=== PATIENT | female | born 1935 | race African-American/Black ===

== ENCOUNTER 2020-06-11 16:28 | Inpatient (IN) | payer OTHER ==
[2020-06-11] MEDS ORDERED: Ondansetron PF 4 MG/2 ML Vial IVP PRN (21:53)
[2020-06-11] MEDS ORDERED: Acetaminophen 325 MG TAB PO PRN (21:53)
[2020-06-11] MEDS ORDERED: Guaifenesin DM 100-10/5 ML UDCUP PO PRN (21:53)
[2020-06-11] MEDS ORDERED: Calcium Carbonate 500 MG ChewTAB PO PRN (21:53)
[2020-06-11] MEDS ORDERED: Acetaminophen 650 MG Suppository PR PRN (21:53)
[2020-06-11] MEDS ORDERED: Ondansetron ODT 4 MG TAB PO PRN (21:53)
[2020-06-11] MEDS ORDERED: Sodium Chloride 0.9% 1,000 ML IV SCH (22:00)
--- NOTE | 2020-06-11 22:09 | PDOC.HHP ---
Hospitalist HPI - History of Present Illness hypoxia History of Present Illness: history is limited, patient with severe Alzheimer dementia, no family members or personal from intermediate present. Case of an 84y/o female with a pmhx of epilepsy, htn, osteoporosis, dysphagia and alzheimers demetia who was brought to hospital via ems due to hypoxia. apparently patient was recently diagnosed with covid 19 at her intermediate on 06/06/2020 due to cough. they called ems due to deterioration on her symptoms with an 02 sat of 77% on 2L and with tachypnea. patient was brought to hospital and diagnosed with renal failure, hypernatremia and elevated troponin apart from her dx of covid 19 pneumonia with respiratory failure. hospitalist was called for further evaluation and management. Hospitalist ROS - Review of Systems ROS unobtainable: due to mental status Hospitalist History - Past Surgical History Other Surgical History: unable to asses due to mental status - Family History Other Family History: unable to asses due to mental status - Social History Other Social History: unable to asses due to mental status - Exam General Appearance: NAD Eye: PERRL, anicteric sclera ENT: normocephalic atraumatic, no oropharyngeal lesions Neck: supple, symmetric, no JVD Heart: RRR, no murmur, no gallops Respiratory: CTAB, no wheezes, no rales Gastrointestinal: soft, non-tender, non-distended Extremities: no cyanosis, no clubbing, no edema Skin: normal turgor, no lesions, no rashes Neurological: cranial nerve grossly intact Musculoskeletal: normal tone Psychiatric: normal affect, normal behavior Hospitalist H&P A/P - Problem (1) Pneumonia due to COVID-19 virus Code(s): U07.1 - COVID-19; J12.89 - OTHER VIRAL PNEUMONIA Status: Acute (2) Acute respiratory failure Code(s): J96.00 - ACUTE RESPIRATORY FAILURE, UNSP W HYPOXIA OR HYPERCAPNIA Status: Acute (3) Renal failure Status: Acute (4) Hypernatremia Code(s): E87.0 - HYPEROSMOLALITY AND HYPERNATREMIA Status: Acute (5) Elevated d-dimer Code(s): R79.89 - OTHER SPECIFIED ABNORMAL FINDINGS OF BLOOD CHEMISTRY Status: Acute (6) Elevated troponin Code(s): R77.8 - OTHER SPECIFIED ABNORMALITIES OF PLASMA PROTEINS Status: Acute - Plan Plan: Case of an 84y/o female with the stated pmhx who presnet with covid 19 pneumonia, renal failure hypernatremia and elevated dimer covid 19 pneumonia - tested positive on 06/06/2020 - cxr consistent with covid 19 pneumonia - will start decadron ivd - vit c + d + zinc - isolation precaution resp failure - hypoxic - secondary to above - 02 supplementation - wean as tolerated renal failure - cr at 1.8, no previous hx of ckd - will start ivfs - f/u renal function and u/o hypernatremia - likely hypovolemic hypernatremia - will replace volume with ns - changes to hypotonic fluids if needed elevated dimer - concern for PE, unable to get cta due to renal failure - will start prophylactically lovenox - could be secondary to covid 19 - will try to get a V/Q scan epilepsy / htn - continue home meds
[2020-06-11 22:42] VITALS: BMI 28.0
[2020-06-12 00:59] LABS: Troponin I 0.115 ng/mL (< 0.028)
[2020-06-12 08:15] LABS: SARS-CoV-2 MS2 Positive; SARS-CoV-2 N Gene Positive; SARS-CoV-2 S Gene Positive; SARS-CoV-2 by NAA DETECTED (NotDetected); SARS-CoV-2 orf1ab Positive
--- NOTE | 2020-06-12 08:46 | ULT ---
RENAL ULTRASOUND: DATE: 06/11/2020. PROVIDED CLINICAL HISTORY: Renal failure. FINDINGS: The right kidney measures about 9.5 x 4.1 x 3.6 cm and demonstrates no evidence for hydronephrosis or mass. The left kidney measures about 9.4 x 5.5 x 4.2 cm and demonstrates no evidence for hydronephrosis or mass. The urinary bladder appears sonographically unremarkable. IMPRESSION: No evidence for hydronephrosis. POS: LISA
[2020-06-12] MEDS ORDERED: Non-Formulary Item 1 EACH (Levetiracetam [Keppra] 750 MG Tablet) PO SCH (09:00)
--- NOTE | 2020-06-12 09:03 | PDOC.HOSPP ---
- Subjective Encounter Date: 06/12/20 Encounter Time: 09:02 Subjective: no appropriate response - Objective Vital Signs & Weight: Vital Signs (12 hours) Temp Pulse Resp BP Pulse Ox 06/12/20 03:50 98.5 F 72 18 126/71 100 06/11/20 23:37 96.8 F L 71 20 135/57 L 100 06/11/20 21:53 100 Weight Weight 153 lb 6.4 oz - Exam Neck: no JVD Heart: RRR, no murmur Respiratory - other findings: adequate BS, non-focal fine rales Gastrointestinal: soft, normal bowel sounds Extremities: no edema Hosp A/P (1) Pneumonia due to COVID-19 virus Code(s): U07.1 - COVID-19; J12.89 - OTHER VIRAL PNEUMONIA Status: Acute (2) Acute renal failure Status: Acute Qualifiers: Acute renal failure type: unspecified Qualified Code(s): N17.9 - Acute kidney failure, unspecified (3) Dementia Code(s): F03.90 - UNSPECIFIED DEMENTIA WITHOUT BEHAVIORAL DISTURBANCE Status: Acute Qualifiers: Dementia type: unspecified type (4) Acute respiratory failure Code(s): J96.00 - ACUTE RESPIRATORY FAILURE, UNSP W HYPOXIA OR HYPERCAPNIA Status: Acute Qualifiers: Respiratory failure complication: hypoxia Qualified Code(s): J96.01 - Acute respiratory failure with hypoxia (5) Hypernatremia Code(s): E87.0 - HYPEROSMOLALITY AND HYPERNATREMIA Status: Acute - Plan cont iv decadron DC NS, start D5 1/4 NS daily BMP elevated D-Dimer, wait for CRP, ferriten if all elevated comparabl, no OJEDA for PE
[2020-06-12] MEDS: Divalproex Sodium 125 mg Sprinkle Capsule PO SCH (09:26)
[2020-06-12] MEDS: levETIRAcetam 500 MG TAB PO SCH ×2 (09:26→20:48)
[2020-06-12] MEDS: Ascorbic Acid 500 mg Chewable Tablet PO SCH (09:26)
[2020-06-12] MEDS: Cholecalciferol (Vitamin D3) 400 UNITS TAB PO SCH (09:26)
[2020-06-12] MEDS: Zinc Sulfate 220 MG CAP PO SCH (09:27)
[2020-06-12] MEDS: Dexamethasone 4 mg/ml Vial SLOW IVP SCH (09:38)
[2020-06-12] MEDS: Enoxaparin Sodium 80 MG/0.8 ML SYRINGE SC SCH (09:38)
[2020-06-12] MEDS: D5 1/4 NS 1,000 ML IV SCH ×2 (09:38→20:49)
[2020-06-12] MEDS: Artificial Tear Sol 15 ML BOT EA EYE SCH (09:39)
[2020-06-12 11:14] LABS: Hemoglobin 13.4 g/dL (12.0-16.0); Mean Corpuscular HGB CONC 31.9 g/dL (32.0-36.0); Mean Corpuscular Hemoglobin 30.3 pg (27.0-31.0); Mean Corpuscular Volume 94.9 fL (78.0-98.0); Platelet Count 129 thou/uL (130-400); RBC Distribution Width 12.6 % (11.5-14.5); Red Blood Cell (RBC) Count 4.42 mill/uL (4.20-5.40); White Blood Cell (WBC) Count 9.5 thou/uL (4.8-10.8)
[2020-06-12 11:20] LABS: ALT (SGPT) 22 U/L (8-55); AST (SGOT) 43 U/L (5-34); Albumin 3.1 g/dL (3.4-4.8); Alkaline Phosphatase 59 U/L (40-110); Anion Gap 18 mmol/L (10-20); BUN (Urea Nitrogen) 35 mg/dL (9.8-20.1); Bilirubin, Total 0.4 mg/dL (0.2-1.2); Calc. Creatinine Clearance 55 mL/min (70-130); Calcium 8.6 mg/dL (7.8-10.44); Carbon Dioxide 20 mmol/L (23-31); Chloride 119 mmol/L (98-107); Globulin 4.1 g/dL (2.4-3.5); Glucose 88 mg/dL (83-110); Protein, Total 7.2 g/dL (6.0-8.3); Sodium 153 mmol/L (136-145)
[2020-06-12 11:24] LABS: Troponin I 0.117 ng/mL (< 0.028)
[2020-06-12 11:35] LABS: Band 11 % (5-11); Lymphocytes 10 % (21-51); MDiff Complete? YES; Monocytes 5 % (0-10); Neutrophil 74 % (42-75); Platelet Morphology Comment Appears Decreased; RBC Morphology Normal
--- NOTE | 2020-06-12 14:56 | PDOC.BPN ---
- Brief Progress Note Encounter Date: 06/12/20 Encounter Time: 14:50 D-dimer, CRP< ferritell elevated consistent with COVID . no need for PE OJEDA ...
--- NOTE | 2020-06-13 07:47 | PDOC.HOSPP ---
- Subjective Encounter Date: 06/13/20 Encounter Time: 07:44 Subjective: arousable, no distress, dementia - Objective Vital Signs & Weight: Vital Signs (12 hours) Temp Pulse Resp BP Pulse Ox 06/13/20 04:00 97.7 F 59 L 24 H 140/63 100 06/13/20 03:33 98 06/12/20 23:55 22 H 110/56 L 98 06/12/20 20:50 98 06/12/20 19:53 98.2 F 61 22 H 108/53 L 98 Weight Admit Weight 153 lb 6.4 oz Weight 153 lb 6.4 oz I&O: 06/12/20 06/13/20 06/14/20 06:59 06:59 06:59 Intake Total 2587 Output Total 375 Balance 2212 Result Diagrams: 06/12/20 10:43 06/12/20 10:43 Hospitalist ROS - Medication Medications: Active Medications Generic Name Dose Route Start Last Admin Trade Name Freq PRN Reason Stop Dose Admin Acetaminophen 650 mg 06/11/20 21:53 06/12/20 14:17 Acetaminophen 325 Mg Tab PO 650 mg Q4H PRN Administration Headache/Fever/Mild Pain (1-3) Artificial Tears 1 drop 06/12/20 09:00 06/12/20 09:39 Artificial Tear Laura 15 Ml Bot EA EYE 1 drop DAILY LUCIANO Administration Ascorbic Acid 1,000 mg 06/12/20 09:00 06/12/20 09:26 Ascorbic Acid 500 Mg Chewable Tablet PO Not Given DAILY LUCIANO Cholecalciferol 400 units 06/12/20 09:00 06/12/20 09:26 Cholecalciferol (Vitamin D3) 400 Units Tab PO Not Given DAILY LUCIANO Dexamethasone 6 mg 06/12/20 09:00 06/12/20 09:38 Dexamethasone 4 Mg/Ml Vial SLOW IVP 6 mg DAILY LUCIANO Administration Divalproex Sodium 125 mg 06/12/20 09:00 06/12/20 09:26 Divalproex Sodium 125 Mg Sprinkle Capsule PO Not Given DAILY LUCIANO Enoxaparin Sodium 70 mg 06/12/20 09:00 06/12/20 09:38 Enoxaparin Sodium 80 Mg/0.8 Ml Syringe SC 70 mg 0900 LUCIANO Administration Dextrose/Sodium Chloride 1,000 mls @ 100 mls/hr 06/12/20 09:15 06/12/20 20:49 D5 1/4 Ns IV 1,000 mls .Q10H LUCIANO Administration Levetiracetam 750 mg 06/12/20 09:00 06/12/20 20:48 Levetiracetam 500 Mg Tab PO 750 mg BID LUCIANO Administration Sodium Chloride 10 ml 06/12/20 09:00 06/12/20 20:49 Flush - Normal Saline 10 Ml Syringe IVF 10 ml Q12HR LUCIANO Administration Zinc Sulfate 220 mg 06/12/20 09:00 06/12/20 09:27 Zinc Sulfate 220 Mg Cap PO Not Given DAILY LUCIANO - Exam Neck: no JVD Heart: RRR, no murmur Respiratory - other findings: good BS, fine rales Gastrointestinal: soft, normal bowel sounds Extremities: no edema Hosp A/P (1) Pneumonia due to COVID-19 virus Code(s): U07.1 - COVID-19; J12.89 - OTHER VIRAL PNEUMONIA Status: Acute (2) Acute renal failure Status: Acute Qualifiers: Acute renal failure type: unspecified Qualified Code(s): N17.9 - Acute kidney failure, unspecified (3) Dementia Code(s): F03.90 - UNSPECIFIED DEMENTIA WITHOUT BEHAVIORAL DISTURBANCE Status: Acute Qualifiers: Dementia type: unspecified type (4) Acute respiratory failure Code(s): J96.00 - ACUTE RESPIRATORY FAILURE, UNSP W HYPOXIA OR HYPERCAPNIA Status: Acute Qualifiers: Respiratory failure complication: hypoxia Qualified Code(s): J96.01 - Acute respiratory failure with hypoxia (5) Hypernatremia Code(s): E87.0 - HYPEROSMOLALITY AND HYPERNATREMIA Status: Acute - Plan cont iv decadron cont D5 1/4 NS daily BMP when renal fcn, electrolytes normalize, DC plaanning
[2020-06-13 09:25] LABS: Anion Gap 16 mmol/L (10-20); BUN (Urea Nitrogen) 27 mg/dL (9.8-20.1); Calc. Creatinine Clearance 55 mL/min (70-130); Calcium 8.6 mg/dL (7.8-10.44); Carbon Dioxide 23 mmol/L (23-31); Chloride 115 mmol/L (98-107); Glucose 132 mg/dL (83-110); Potassium 3.5 mmol/L (3.5-5.1); Sodium 150 mmol/L (136-145)
[2020-06-13] MEDS: Ascorbic Acid 500 mg Chewable Tablet PO SCH (10:59)
[2020-06-13] MEDS: Divalproex Sodium 125 mg Sprinkle Capsule PO SCH (11:01)
[2020-06-13] MEDS: Zinc Sulfate 220 MG CAP PO SCH (11:01)
[2020-06-13] MEDS: Cholecalciferol (Vitamin D3) 400 UNITS TAB PO SCH (11:01)
[2020-06-13] MEDS: levETIRAcetam 500 MG TAB PO SCH ×2 (11:01→21:58)
[2020-06-13] MEDS: Enoxaparin Sodium 80 MG/0.8 ML SYRINGE SC SCH (11:02)
[2020-06-13] MEDS: Dexamethasone 4 mg/ml Vial SLOW IVP SCH (11:05)
[2020-06-13] MEDS: D5 1/4 NS 1,000 ML IV SCH ×2 (11:08→21:58)
[2020-06-13] MEDS: Artificial Tear Sol 15 ML BOT EA EYE SCH (11:10)
[2020-06-13 11:40] LABS: #Monocytes 0.2 thou/uL (0.11-0.59); #Neutrophils 7.5 thou/uL (1.40-6.50); %Eosinophils 0.5 % (0.0-10.0); %Lymphocytes 11.4 % (21.0-51.0); %Monocytes 2.4 % (0.0-10.0); %Neutrophils 85.7 % (42.0-75.0); Hemoglobin 11.9 g/dL (12.0-16.0); Mean Corpuscular HGB CONC 31.6 g/dL (32.0-36.0); Mean Corpuscular Hemoglobin 30.1 pg (27.0-31.0); Mean Corpuscular Volume 95.3 fL (78.0-98.0); Mean Platelet Volume 8.9 fL (7.4-10.4); Platelet Count 265 thou/uL (130-400); RBC Distribution Width 12.6 % (11.5-14.5); Red Blood Cell (RBC) Count 3.95 mill/uL (4.20-5.40); White Blood Cell (WBC) Count 8.8 thou/uL (4.8-10.8)
--- NOTE | 2020-06-13 15:16 | PDOC.BPN ---
- Brief Progress Note Encounter Date: 06/13/20 Encounter Time: 15:15 hypernatremia improving slowly. cont D5 1/4 ns
--- NOTE | 2020-06-14 08:40 | PDOC.HOSPP ---
- Subjective Encounter Date: 06/14/20 Encounter Time: 08:32 Subjective: still non communicative when aroused - Objective Vital Signs & Weight: Vital Signs (12 hours) Temp Pulse Resp BP Pulse Ox 06/14/20 04:21 99 06/14/20 04:15 97 F L 72 17 158/70 H 100 06/14/20 00:00 60 06/13/20 21:58 98 06/13/20 20:55 97.8 F 68 16 135/75 100 Weight Admit Weight 153 lb 6.4 oz Weight 153 lb 6.4 oz I&O: 06/13/20 06/14/20 06/15/20 06:59 06:59 06:59 Intake Total 2587 2530 Output Total 375 800 Balance 2212 1730 Result Diagrams: 06/13/20 08:54 06/13/20 08:54 Hospitalist ROS - Medication Medications: Active Medications Generic Name Dose Route Start Last Admin Trade Name Freq PRN Reason Stop Dose Admin Acetaminophen 650 mg 06/11/20 21:53 06/12/20 14:17 Acetaminophen 325 Mg Tab PO 650 mg Q4H PRN Administration Headache/Fever/Mild Pain (1-3) Artificial Tears 1 drop 06/12/20 09:00 06/13/20 11:10 Artificial Tear Laura 15 Ml Bot EA EYE 1 drop DAILY LUCIANO Administration Ascorbic Acid 1,000 mg 06/12/20 09:00 06/13/20 10:59 Ascorbic Acid 500 Mg Chewable Tablet PO 1,000 mg DAILY LUCIANO Administration Cholecalciferol 400 units 06/12/20 09:00 06/13/20 11:01 Cholecalciferol (Vitamin D3) 400 Units Tab PO 400 units DAILY LUCIANO Administration Dexamethasone 6 mg 06/12/20 09:00 06/13/20 11:05 Dexamethasone 4 Mg/Ml Vial SLOW IVP 6 mg DAILY LUCIANO Administration Divalproex Sodium 125 mg 06/12/20 09:00 06/13/20 11:01 Divalproex Sodium 125 Mg Sprinkle Capsule PO 125 mg DAILY LUCIANO Administration Enoxaparin Sodium 70 mg 06/12/20 09:00 06/13/20 11:02 Enoxaparin Sodium 80 Mg/0.8 Ml Syringe SC 70 mg 0900 LUCIANO Administration Dextrose/Sodium Chloride 1,000 mls @ 100 mls/hr 06/12/20 09:15 06/13/20 21:58 D5 1/4 Ns IV 1,000 mls .Q10H LUCIANO Administration Levetiracetam 750 mg 06/12/20 09:00 06/13/20 21:58 Levetiracetam 500 Mg Tab PO 750 mg BID LUCIANO Administration Sodium Chloride 10 ml 06/12/20 09:00 06/13/20 21:58 Flush - Normal Saline 10 Ml Syringe IVF 10 ml Q12HR LUCIANO Administration Zinc Sulfate 220 mg 06/12/20 09:00 06/13/20 11:01 Zinc Sulfate 220 Mg Cap PO 220 mg DAILY LUCIANO Administration - Exam Neck: no JVD Heart: RRR Respiratory - other findings: mildly coarse BS, fine rales Gastrointestinal: soft, normal bowel sounds Extremities: no edema Hosp A/P (1) Pneumonia due to COVID-19 virus Code(s): U07.1 - COVID-19; J12.89 - OTHER VIRAL PNEUMONIA Status: Acute (2) Acute renal failure Status: Acute Qualifiers: Acute renal failure type: unspecified Qualified Code(s): N17.9 - Acute kidney failure, unspecified (3) Dementia Code(s): F03.90 - UNSPECIFIED DEMENTIA WITHOUT BEHAVIORAL DISTURBANCE Status: Acute Qualifiers: Dementia type: unspecified type (4) Acute respiratory failure Code(s): J96.00 - ACUTE RESPIRATORY FAILURE, UNSP W HYPOXIA OR HYPERCAPNIA Status: Acute Qualifiers: Respiratory failure complication: hypoxia Qualified Code(s): J96.01 - Acute respiratory failure with hypoxia (5) Hypernatremia Code(s): E87.0 - HYPEROSMOLALITY AND HYPERNATREMIA Status: Acute - Plan COVID-cont iv decadron Hypernatemia-cont D5 1/4 NS, daily BMP when renal fcn, electrolytes normalize, DC planning will return to [place]
[2020-06-14] MEDS: D5 1/4 NS 1,000 ML IV SCH ×2 (09:36→16:29)
[2020-06-14] MEDS: Zinc Sulfate 220 MG CAP PO SCH (09:37)
[2020-06-14] MEDS: levETIRAcetam 500 MG TAB PO SCH ×2 (09:37→20:14)
[2020-06-14] MEDS: Enoxaparin Sodium 80 MG/0.8 ML SYRINGE SC SCH (09:37)
[2020-06-14] MEDS: Cholecalciferol (Vitamin D3) 400 UNITS TAB PO SCH (09:38)
[2020-06-14] MEDS: Dexamethasone 4 mg/ml Vial SLOW IVP SCH (09:38)
[2020-06-14] MEDS: Divalproex Sodium 125 mg Sprinkle Capsule PO SCH (09:38)
[2020-06-14] MEDS: Ascorbic Acid 500 mg Chewable Tablet PO SCH (09:39)
[2020-06-14] MEDS: Artificial Tear Sol 15 ML BOT EA EYE SCH (09:39)
[2020-06-14 16:11] LABS: Anion Gap 13 mmol/L (10-20); BUN (Urea Nitrogen) 15 mg/dL (9.8-20.1); Calc. Creatinine Clearance 67 mL/min (70-130); Calcium 7.9 mg/dL (7.8-10.44); Carbon Dioxide 22 mmol/L (23-31); Chloride 108 mmol/L (98-107); Glucose 133 mg/dL (83-110); Potassium 3.6 mmol/L (3.5-5.1); Sodium 139 mmol/L (136-145)
[2020-06-15] MEDS: D5 1/4 NS 1,000 ML IV SCH ×2 (03:53→14:26)
[2020-06-15] MEDS: Zinc Sulfate 220 MG CAP PO SCH (08:24)
[2020-06-15] MEDS: levETIRAcetam 500 MG TAB PO SCH ×2 (08:24→21:18)
[2020-06-15] MEDS: Divalproex Sodium 125 mg Sprinkle Capsule PO SCH (08:24)
[2020-06-15] MEDS: Ascorbic Acid 500 mg Chewable Tablet PO SCH (08:24)
[2020-06-15] MEDS: Dexamethasone 4 mg/ml Vial SLOW IVP SCH (08:25)
[2020-06-15] MEDS: Artificial Tear Sol 15 ML BOT EA EYE SCH (08:25)
[2020-06-15] MEDS: Cholecalciferol (Vitamin D3) 400 UNITS TAB PO SCH (09:02)
[2020-06-15] MEDS: Enoxaparin Sodium 80 MG/0.8 ML SYRINGE SC SCH (09:02)
[2020-06-15 12:44] LABS: #Lymphocytes 0.8 thou/uL (1.20-3.40); #Monocytes 0.4 thou/uL (0.11-0.59); #Neutrophils 5.9 thou/uL (1.40-6.50); %Basophils 0.2 % (0.0-1.0); %Eosinophils 0.6 % (0.0-10.0); %Lymphocytes 11.1 % (21.0-51.0); %Monocytes 5.5 % (0.0-10.0); %Neutrophils 82.6 % (42.0-75.0); Hemoglobin 12.4 g/dL (12.0-16.0); Mean Corpuscular HGB CONC 32.7 g/dL (32.0-36.0); Mean Corpuscular Hemoglobin 30.4 pg (27.0-31.0); Mean Corpuscular Volume 93.1 fL (78.0-98.0); Mean Platelet Volume 8.5 fL (7.4-10.4); Platelet Count 258 thou/uL (130-400); RBC Distribution Width 12.3 % (11.5-14.5); Red Blood Cell (RBC) Count 4.09 mill/uL (4.20-5.40); White Blood Cell (WBC) Count 7.1 thou/uL (4.8-10.8)
[2020-06-15 13:15] LABS: ALT (SGPT) 42 U/L (8-55); AST (SGOT) 46 U/L (5-34); Albumin 2.7 g/dL (3.4-4.8); Alkaline Phosphatase 58 U/L (40-110); Anion Gap 18 mmol/L (10-20); BUN (Urea Nitrogen) 12 mg/dL (9.8-20.1); Bilirubin, Total 0.4 mg/dL (0.2-1.2); Calc. Creatinine Clearance 67 mL/min (70-130); Calcium 8.2 mg/dL (7.8-10.44); Carbon Dioxide 18 mmol/L (23-31); Chloride 108 mmol/L (98-107); Globulin 3.9 g/dL (2.4-3.5); Glucose 126 mg/dL (83-110); Magnesium 1.9 mg/dL (1.6-2.6); Potassium 3.6 mmol/L (3.5-5.1); Protein, Total 6.6 g/dL (6.0-8.3); Sodium 140 mmol/L (136-145)
[2020-06-15 13:38] LABS: Phosphorus 1.9 mg/dL (2.3-4.7)
[2020-06-15] MEDS ORDERED: Potassium Phosphate 30 MMOL in Sodium Chloride 0.9% 500 ML IVPB SCH (14:30)
[2020-06-15] MEDS: D5 1/2 NS w/20 mEq KCL 1,000 ML IV SCH (14:44)
--- NOTE | 2020-06-15 20:22 | PDOC.HOSPP ---
- Subjective Encounter Date: 06/15/20 Encounter Time: 13:30 non-verbal Subjective: Patient seen and examined for dehydration with COVID 19 pneumonia. No overnight events - Objective Vital Signs & Weight: Vital Signs (12 hours) Temp Pulse Resp BP Pulse Ox 06/15/20 19:27 97.5 F L 58 L 18 175/70 H 93 L 06/15/20 15:20 97.1 F L 64 18 147/68 H 100 06/15/20 11:50 98.3 F 56 L 18 145/61 H 100 06/15/20 09:19 100 Weight Admit Weight 153 lb 6.4 oz Weight 153 lb 6.4 oz I&O: 06/14/20 06/15/20 06/16/20 06:59 06:59 06:59 Intake Total 2530 1540 1750 Output Total 800 400 Balance 1730 1140 1750 Result Diagrams: 06/15/20 12:33 06/15/20 12:33 Additional Labs: Abnormal Lab Results - Last 48 hrs 06/14/20 15:41: Chloride 108 H, Carbon Dioxide 22 L 06/15/20 12:33: Chloride 108 H, Carbon Dioxide 18 L, Phosphorus 1.9 L, AST 46 H, Albumin 2.7 L, Globulin 3.9 H, Albumin/Globulin Ratio 0.7 L 06/15/20 12:33: RBC 4.09 L, Neutrophils % 82.6 H, Lymphocytes % 11.1 L, Lymphocytes # 0.8 L 06/15/20 12:33: C-Reactive Protein 5.14 H 06/15/20 12:33: Ferritin 580.34 H 06/15/20 12:33: D-Dimer 9.34 H Radiology Reviewed by me: Yes (Chest x-rayquit 19 pneumonia) Hospitalist ROS - Review of Systems ROS unobtainable: due to mental status - Medication Medications: Active Medications Generic Name Dose Route Start Last Admin Trade Name Freq PRN Reason Stop Dose Admin Acetaminophen 650 mg 06/11/20 21:53 06/12/20 14:17 Acetaminophen 325 Mg Tab PO 650 mg Q4H PRN Administration Headache/Fever/Mild Pain (1-3) Artificial Tears 1 drop 06/12/20 09:00 06/15/20 08:25 Artificial Tear Laura 15 Ml Bot EA EYE 1 drop DAILY LUCIANO Administration Ascorbic Acid 1,000 mg 06/12/20 09:00 06/15/20 08:24 Ascorbic Acid 500 Mg Chewable Tablet PO 1,000 mg DAILY LUCIANO Administration Cholecalciferol 400 units 06/12/20 09:00 06/15/20 09:02 Cholecalciferol (Vitamin D3) 400 Units Tab PO 400 units DAILY LUCIANO Administration Dexamethasone 6 mg 06/12/20 09:00 06/15/20 08:25 Dexamethasone 4 Mg/Ml Vial SLOW IVP 6 mg DAILY LUCIANO Administration Divalproex Sodium 125 mg 06/12/20 09:00 06/15/20 08:24 Divalproex Sodium 125 Mg Sprinkle Capsule PO 125 mg DAILY LUCIANO Administration Enoxaparin Sodium 70 mg 06/12/20 09:00 06/15/20 09:02 Enoxaparin Sodium 80 Mg/0.8 Ml Syringe SC 70 mg 0900 LUCIANO Administration Potassium Chloride/Dextrose/Sod Cl 1,000 mls @ 75 mls/hr 06/15/20 14:30 06/15/20 14:44 D5 1/2 Ns W/20 Meq Kcl IV 1,000 mls .[id number] LUCIANO Administration Levetiracetam 750 mg 06/12/20 09:00 06/15/20 08:24 Levetiracetam 500 Mg Tab PO 750 mg BID LUCIANO Administration Sodium Chloride 10 ml 06/12/20 09:00 06/15/20 08:25 Flush - Normal Saline 10 Ml Syringe IVF 10 ml Q12HR LUCIANO Administration Zinc Sulfate 220 mg 06/12/20 09:00 06/15/20 08:24 Zinc Sulfate 220 Mg Cap PO 220 mg DAILY LUCIANO Administration - Exam General Appearance: ill appearing Neck: supple, no JVD Heart: RRR, no gallops Respiratory: no wheezes, rales, rhonchi Gastrointestinal: soft, normal bowel sounds, no guarding, no rigidity Extremities: no cyanosis Neurological - other findings: Neuro/psychexam limited due to current mentation Musculoskeletal: generalized weakness Hosp A/P - Plan DVT proph w/SCDs Acute hypoxic respiratory failure due to COVID 19 pneumoniaPOA Dehydration with hypernatremia/AKIPOA Hypophosphatemia Elevated troponin/type II myocardial infarctionPOA Metabolic acidosis CKD stage III Abnormal LFTs Seizure disorder Plan: Replace phosphorus. Change IV fluid to D5 half NS with 20 of potassium. Recheck labs in a.m. Continue other medications as well
[2020-06-16] MEDS: D5 1/2 NS w/20 mEq KCL 1,000 ML IV SCH ×2 (04:37→20:33)
[2020-06-16] MEDS: Ascorbic Acid 500 mg Chewable Tablet PO SCH (09:23)
[2020-06-16] MEDS: Dexamethasone 4 mg/ml Vial SLOW IVP SCH (09:23)
[2020-06-16] MEDS: levETIRAcetam 500 MG TAB PO SCH ×2 (09:24→20:33)
[2020-06-16] MEDS: Divalproex Sodium 125 mg Sprinkle Capsule PO SCH (09:24)
[2020-06-16] MEDS: Zinc Sulfate 220 MG CAP PO SCH (09:24)
[2020-06-16] MEDS: Cholecalciferol (Vitamin D3) 400 UNITS TAB PO SCH (09:24)
[2020-06-16] MEDS: Artificial Tear Sol 15 ML BOT EA EYE SCH (09:24)
[2020-06-16] MEDS: Enoxaparin Sodium 80 MG/0.8 ML SYRINGE SC SCH (09:25)
--- NOTE | 2020-06-16 18:56 | PDOC.HOSPP ---
- Subjective Encounter Date: 06/16/20 Encounter Time: 11:30 non-verbal Subjective: Patient seen and examined for respiratory failure/COVID-19 pneumonia. No new overnight events. - Objective Vital Signs & Weight: Vital Signs (12 hours) Temp Pulse Resp BP Pulse Ox 06/16/20 08:00 98.2 F 61 18 168/78 H 93 L Weight Admit Weight 153 lb 6.4 oz Weight 153 lb 6.4 oz I&O: 06/15/20 06/16/20 06/17/20 06:59 06:59 06:59 Intake Total 1540 1750 Output Total 400 Balance 1140 1750 Result Diagrams: 06/15/20 12:33 06/15/20 12:33 Additional Labs: Abnormal Lab Results - Last 48 hrs 06/15/20 12:33: Chloride 108 H, Carbon Dioxide 18 L, Phosphorus 1.9 L, AST 46 H, Albumin 2.7 L, Globulin 3.9 H, Albumin/Globulin Ratio 0.7 L 06/15/20 12:33: RBC 4.09 L, Neutrophils % 82.6 H, Lymphocytes % 11.1 L, Lymphocytes # 0.8 L 06/15/20 12:33: C-Reactive Protein 5.14 H 06/15/20 12:33: Ferritin 580.34 H 06/15/20 12:33: D-Dimer 9.34 H Hospitalist ROS - Review of Systems ROS unobtainable: due to mental status - Medication Medications: Active Medications Generic Name Dose Route Start Last Admin Trade Name Freq PRN Reason Stop Dose Admin Acetaminophen 650 mg 06/11/20 21:53 06/12/20 14:17 Acetaminophen 325 Mg Tab PO 650 mg Q4H PRN Administration Headache/Fever/Mild Pain (1-3) Artificial Tears 1 drop 06/12/20 09:00 06/16/20 09:24 Artificial Tear Laura 15 Ml Bot EA EYE 1 drop DAILY LUCIANO Administration Ascorbic Acid 1,000 mg 06/12/20 09:00 06/16/20 09:23 Ascorbic Acid 500 Mg Chewable Tablet PO 1,000 mg DAILY LUCIANO Administration Cholecalciferol 400 units 06/12/20 09:00 06/16/20 09:24 Cholecalciferol (Vitamin D3) 400 Units Tab PO 400 units DAILY LUCIANO Administration Dexamethasone 6 mg 06/12/20 09:00 06/16/20 09:23 Dexamethasone 4 Mg/Ml Vial SLOW IVP 6 mg DAILY LUCIANO Administration Divalproex Sodium 125 mg 06/12/20 09:00 06/16/20 09:24 Divalproex Sodium 125 Mg Sprinkle Capsule PO 125 mg DAILY LUCIANO Administration Enoxaparin Sodium 70 mg 06/12/20 09:00 06/16/20 09:25 Enoxaparin Sodium 80 Mg/0.8 Ml Syringe SC 70 mg 0900 LUCIANO Administration Potassium Chloride/Dextrose/Sod Cl 1,000 mls @ 75 mls/hr 06/15/20 14:30 06/16/20 04:37 D5 1/2 Ns W/20 Meq Kcl IV Not Given .[id number] LUCIANO Levetiracetam 750 mg 06/12/20 09:00 06/16/20 09:24 Levetiracetam 500 Mg Tab PO 750 mg BID LUCIANO Administration Sodium Chloride 10 ml 06/12/20 09:00 06/16/20 09:25 Flush - Normal Saline 10 Ml Syringe IVF 10 ml Q12HR LUCIANO Administration Zinc Sulfate 220 mg 06/12/20 09:00 06/16/20 09:24 Zinc Sulfate 220 Mg Cap PO 220 mg DAILY LUCIANO Administration - Exam General Appearance: ill appearing Heart: RRR, no gallops Respiratory: no wheezes, rales, rhonchi Gastrointestinal: non-tender, no guarding, no rigidity Extremities: no cyanosis Hosp A/P - Plan DVT proph w/SCDs Acute hypoxic respiratory failure due to COVID 19 pneumonia Dehydration with hypernatremia/PRAVEENA Hypophosphatemia Elevated troponin/type II myocardial infarction Metabolic acidosis CKD stage III Abnormal LFTs Seizure disorder Plan: Continue IV hydration. Continue dexamethasone with O2 supplementation and bronchodilators. Will consult palliative care for goals of care. Continue modified diet. Recheck inflammatory markers in a.m. Continue other medications as above
[2020-06-16 19:59] LABS: #Lymphocytes 0.7 thou/uL (1.20-3.40); #Monocytes 0.3 thou/uL (0.11-0.59); %Basophils 0.4 % (0.0-1.0); %Eosinophils 0.2 % (0.0-10.0); %Lymphocytes 10.8 % (21.0-51.0); %Monocytes 5.5 % (0.0-10.0); %Neutrophils 83.1 % (42.0-75.0); Hemoglobin 12.5 g/dL (12.0-16.0); Mean Corpuscular HGB CONC 31.8 g/dL (32.0-36.0); Mean Corpuscular Hemoglobin 29.4 pg (27.0-31.0); Mean Corpuscular Volume 92.6 fL (78.0-98.0); Mean Platelet Volume 8.3 fL (7.4-10.4); Platelet Count 336 thou/uL (130-400); RBC Distribution Width 12.4 % (11.5-14.5); Red Blood Cell (RBC) Count 4.26 mill/uL (4.20-5.40)
[2020-06-16 20:25] LABS: ALT (SGPT) 36 U/L (8-55); AST (SGOT) 35 U/L (5-34); Albumin 2.8 g/dL (3.4-4.8); Alkaline Phosphatase 63 U/L (40-110); Anion Gap 15 mmol/L (10-20); BUN (Urea Nitrogen) 11 mg/dL (9.8-20.1); Bilirubin, Total 0.5 mg/dL (0.2-1.2); Calc. Creatinine Clearance 70 mL/min (70-130); Calcium 8.1 mg/dL (7.8-10.44); Carbon Dioxide 21 mmol/L (23-31); Chloride 106 mmol/L (98-107); Globulin 3.9 g/dL (2.4-3.5); Glucose 125 mg/dL (83-110); Magnesium 1.8 mg/dL (1.6-2.6); Phosphorus 2.9 mg/dL (2.3-4.7); Potassium 4.2 mmol/L (3.5-5.1); Protein, Total 6.7 g/dL (6.0-8.3); Sodium 138 mmol/L (136-145)
[2020-06-17] MEDS: D5 1/2 NS w/20 mEq KCL 1,000 ML IV SCH ×2 (02:43→18:27)
[2020-06-17 07:44] LABS: ALT (SGPT) 34 U/L (8-55); AST (SGOT) 35 U/L (5-34); Albumin 2.7 g/dL (3.4-4.8); Alkaline Phosphatase 63 U/L (40-110); Anion Gap 15 mmol/L (10-20); BUN (Urea Nitrogen) 10 mg/dL (9.8-20.1); Bilirubin, Total 0.5 mg/dL (0.2-1.2); Calc. Creatinine Clearance 69 mL/min (70-130); Calcium 7.9 mg/dL (7.8-10.44); Carbon Dioxide 20 mmol/L (23-31); Chloride 110 mmol/L (98-107); Globulin 3.4 g/dL (2.4-3.5); Glucose 94 mg/dL (83-110); Magnesium 1.8 mg/dL (1.6-2.6); Phosphorus 2.3 mg/dL (2.3-4.7); Potassium 4.2 mmol/L (3.5-5.1); Protein, Total 6.1 g/dL (6.0-8.3); Sodium 141 mmol/L (136-145)
[2020-06-17] MEDS ORDERED: Magnesium 2 GM/50 ML 2 GM in Premix Bag 1 BAG IVPB SCH (08:45)
[2020-06-17] MEDS: Zinc Sulfate 220 MG CAP PO SCH (09:37)
[2020-06-17] MEDS: Divalproex Sodium 125 mg Sprinkle Capsule PO SCH (09:38)
[2020-06-17] MEDS: Dexamethasone 4 mg/ml Vial SLOW IVP SCH (09:38)
[2020-06-17] MEDS: Ascorbic Acid 500 mg Chewable Tablet PO SCH (09:38)
[2020-06-17] MEDS: levETIRAcetam 500 MG TAB PO SCH ×2 (09:38→21:00)
[2020-06-17] MEDS: Artificial Tear Sol 15 ML BOT EA EYE SCH (09:39)
[2020-06-17] MEDS: Cholecalciferol (Vitamin D3) 400 UNITS TAB PO SCH (09:40)
[2020-06-17] MEDS: Enoxaparin Sodium 80 MG/0.8 ML SYRINGE SC SCH (09:40)
--- NOTE | 2020-06-17 12:19 | RAD ---
PORTABLE CHEST: Date: 06/17/2020 HISTORY: COVID pneumonia. COMPARISON: 06/11/2020. FINDINGS: There is more confluent infiltrate now seen in the peripheral right mid lung. Probable hazy ground-gl ass type infiltrate in the right lower lung and possibly left lower lung. Evidence of small effusions . Borderline cardiomegaly. Vascular markings within normal range. IMPRESSION: Increasing consolidation in the right peripheral mid lung infiltrate. POS: AGW
--- NOTE | 2020-06-17 23:29 | PDOC.HOSPP ---
- Subjective Encounter Date: 06/17/20 Encounter Time: 15:00 non-verbal Subjective: Patient seen and examined for encephalopathy. No significant changes from yesterday. Poor appetite per RN. - Objective Vital Signs & Weight: Vital Signs (12 hours) Temp Pulse Resp BP Pulse Ox 06/17/20 20:00 97.6 F 61 18 159/63 H 100 Weight Admit Weight 153 lb 6.4 oz Weight 153 lb 6.4 oz I&O: 06/16/20 06/17/20 06/18/20 06:59 06:59 06:59 Intake Total 1750 600 Output Total 1000 Balance 1750 -400 Result Diagrams: 06/16/20 19:43 06/17/20 07:06 Hospitalist ROS - Review of Systems ROS unobtainable: due to mental status - Medication Medications: Active Medications Generic Name Dose Route Start Last Admin Trade Name Freq PRN Reason Stop Dose Admin Acetaminophen 650 mg 06/11/20 21:53 06/12/20 14:17 Acetaminophen 325 Mg Tab PO 650 mg Q4H PRN Administration Headache/Fever/Mild Pain (1-3) Artificial Tears 1 drop 06/12/20 09:00 06/17/20 09:39 Artificial Tear Laura 15 Ml Bot EA EYE 1 drop DAILY LUCIANO Administration Ascorbic Acid 1,000 mg 06/12/20 09:00 06/17/20 09:38 Ascorbic Acid 500 Mg Chewable Tablet PO 1,000 mg DAILY LUCIANO Administration Cholecalciferol 400 units 06/12/20 09:00 06/17/20 09:40 Cholecalciferol (Vitamin D3) 400 Units Tab PO 400 units DAILY LUCIANO Administration Dexamethasone 6 mg 06/12/20 09:00 06/17/20 09:38 Dexamethasone 4 Mg/Ml Vial SLOW IVP 6 mg DAILY LUCIANO Administration Divalproex Sodium 125 mg 06/12/20 09:00 06/17/20 09:38 Divalproex Sodium 125 Mg Sprinkle Capsule PO 125 mg DAILY LUCIANO Administration Enoxaparin Sodium 70 mg 06/12/20 09:00 06/17/20 09:40 Enoxaparin Sodium 80 Mg/0.8 Ml Syringe SC 70 mg 0900 LUCIANO Administration Potassium Chloride/Dextrose/Sod Cl 1,000 mls @ 75 mls/hr 06/15/20 14:30 06/17/20 18:27 D5 1/2 Ns W/20 Meq Kcl IV 1,000 mls .[id number] LUCIANO Administration Levetiracetam 750 mg 06/12/20 09:00 06/17/20 21:00 Levetiracetam 500 Mg Tab PO 750 mg BID LUCIANO Administration Sodium Chloride 10 ml 06/12/20 09:00 06/17/20 21:01 Flush - Normal Saline 10 Ml Syringe IVF 10 ml Q12HR LUCIANO Administration Zinc Sulfate 220 mg 06/12/20 09:00 06/17/20 09:37 Zinc Sulfate 220 Mg Cap PO 220 mg DAILY LUCIANO Administration - Exam General Appearance: ill appearing Neck: supple, no JVD Heart: RRR, no gallops Respiratory: no wheezes, rales, rhonchi Gastrointestinal: soft, non-distended Extremities: no cyanosis Hosp A/P - Plan DVT proph w/SCDs Acute hypoxic respiratory failure due to COVID 19 pneumonia Dehydration with hypernatremia/PRAVEENA Hypophosphatemia Elevated troponin/type II myocardial infarction Metabolic acidosis CKD stage III Abnormal LFTs Seizure disorder Hypomagnesemia Plan: Attempted to call the family with no answer. Continue gentle hydration due to poor appetite. Replace magnesium. Reduce steroid since patient is on room air. Recheck labs in a.m. Continue other medications as above
[2020-06-18] MEDS: Enoxaparin Sodium 30 MG/0.3 ML SYRINGE SC SCH ×2 (09:18→20:25)
[2020-06-18] MEDS: D5 1/2 NS w/20 mEq KCL 1,000 ML IV SCH ×2 (09:18→20:27)
[2020-06-18] MEDS: levETIRAcetam 500 MG TAB PO SCH ×2 (09:19→20:24)
[2020-06-18] MEDS: Divalproex Sodium 125 mg Sprinkle Capsule PO SCH (09:19)
[2020-06-18] MEDS: Ascorbic Acid 500 mg Chewable Tablet PO SCH (09:19)
[2020-06-18] MEDS: Dexamethasone 4 mg/ml Vial SLOW IVP SCH (09:19)
[2020-06-18] MEDS: Cholecalciferol (Vitamin D3) 400 UNITS TAB PO SCH (09:24)
[2020-06-18 10:04] LABS: #Eosinphils 0.1 thou/uL (0.0-0.7); #Lymphocytes 1.8 thou/uL (1.20-3.40); #Monocytes 0.6 thou/uL (0.11-0.59); #Neutrophils 4.2 thou/uL (1.40-6.50); %Basophils 0.7 % (0.0-1.0); %Eosinophils 1.1 % (0.0-10.0); %Lymphocytes 26.9 % (21.0-51.0); %Monocytes 9.4 % (0.0-10.0); %Neutrophils 61.9 % (42.0-75.0); Hemoglobin 12.8 g/dL (12.0-16.0); Mean Corpuscular HGB CONC 32.5 g/dL (32.0-36.0); Mean Corpuscular Hemoglobin 30.6 pg (27.0-31.0); Mean Corpuscular Volume 94.3 fL (78.0-98.0); Platelet Count 238 thou/uL (130-400); RBC Distribution Width 12.4 % (11.5-14.5); Red Blood Cell (RBC) Count 4.19 mill/uL (4.20-5.40); White Blood Cell (WBC) Count 6.8 thou/uL (4.8-10.8)
[2020-06-18 10:14] LABS: ALT (SGPT) 32 U/L (8-55); AST (SGOT) 34 U/L (5-34); Albumin 2.5 g/dL (3.4-4.8); Alkaline Phosphatase 60 U/L (40-110); Anion Gap 17 mmol/L (10-20); BUN (Urea Nitrogen) 8 mg/dL (9.8-20.1); Bilirubin, Total 0.5 mg/dL (0.2-1.2); Calc. Creatinine Clearance 69 mL/min (70-130); Calcium 8.3 mg/dL (7.8-10.44); Carbon Dioxide 18 mmol/L (23-31); Chloride 110 mmol/L (98-107); Globulin 3.9 g/dL (2.4-3.5); Glucose 84 mg/dL (83-110); Potassium 4.3 mmol/L (3.5-5.1); Protein, Total 6.4 g/dL (6.0-8.3); Sodium 141 mmol/L (136-145)
[2020-06-18] MEDS: Artificial Tear Sol 15 ML BOT EA EYE SCH (10:55)
[2020-06-18] MEDS: Zinc Sulfate 220 MG CAP PO SCH (10:55)
--- NOTE | 2020-06-18 23:36 | PDOC.HOSPP ---
- Subjective Encounter Date: 06/18/20 Encounter Time: 14:30 non-verbal Subjective: Patient seen and examined for encephalopathy. No significant change in mentation. Very poor appetite. - Objective Vital Signs & Weight: Vital Signs (12 hours) Temp Pulse Resp BP BP Pulse Ox 06/18/20 20:51 98.3 F 97 18 142/86 H 95 06/18/20 15:56 97.9 F 61 18 167/82 H 100 Weight Admit Weight 153 lb 6.4 oz Weight 153 lb 6.4 oz I&O: 06/17/20 06/18/20 06/19/20 06:59 06:59 06:59 Intake Total 600 600 Output Total 1000 650 650 Balance -400 -50 -650 Result Diagrams: 06/18/20 09:35 06/18/20 09:00 Hospitalist ROS - Review of Systems ROS unobtainable: due to mental status - Medication Medications: Active Medications Generic Name Dose Route Start Last Admin Trade Name Freq PRN Reason Stop Dose Admin Acetaminophen 650 mg 06/11/20 21:53 06/12/20 14:17 Acetaminophen 325 Mg Tab PO 650 mg Q4H PRN Administration Headache/Fever/Mild Pain (1-3) Artificial Tears 1 drop 06/12/20 09:00 06/18/20 10:55 Artificial Tear Laura 15 Ml Bot EA EYE 1 drop DAILY LUCIANO Administration Ascorbic Acid 1,000 mg 06/12/20 09:00 06/18/20 09:19 Ascorbic Acid 500 Mg Chewable Tablet PO 1,000 mg DAILY LUCIANO Administration Cholecalciferol 400 units 06/12/20 09:00 06/18/20 09:24 Cholecalciferol (Vitamin D3) 400 Units Tab PO 400 units DAILY LUCIANO Administration Dexamethasone 4 mg 06/18/20 09:00 06/18/20 09:19 Dexamethasone 4 Mg/Ml Vial SLOW IVP 4 mg DAILY LUCIANO Administration Divalproex Sodium 125 mg 06/12/20 09:00 06/18/20 09:19 Divalproex Sodium 125 Mg Sprinkle Capsule PO 125 mg DAILY LUCIANO Administration Enoxaparin Sodium 30 mg 06/18/20 09:00 06/18/20 20:25 Enoxaparin Sodium 30 Mg/0.3 Ml Syringe SC 30 mg 0900,2100 LUCIANO Administration Potassium Chloride/Dextrose/Sod Cl 1,000 mls @ 75 mls/hr 06/15/20 14:30 06/18/20 20:27 D5 1/2 Ns W/20 Meq Kcl IV 1,000 mls .[id number] LUCIANO Administration Levetiracetam 750 mg 06/12/20 09:00 06/18/20 20:24 Levetiracetam 500 Mg Tab PO 750 mg BID LUCIANO Administration Sodium Chloride 10 ml 06/12/20 09:00 06/18/20 20:28 Flush - Normal Saline 10 Ml Syringe IVF 10 ml Q12HR LUCIANO Administration Zinc Sulfate 220 mg 06/12/20 09:00 06/18/20 10:55 Zinc Sulfate 220 Mg Cap PO Not Given DAILY LUCIANO - Exam General Appearance: ill appearing Neck: supple, no JVD Heart: RRR, no gallops Respiratory: no wheezes, rhonchi Gastrointestinal: soft, non-tender, non-distended Extremities: no cyanosis, no clubbing Neurological - other findings: Neuro/psychno significant change Hosp A/P - Plan DVT proph w/SCDs Acute hypoxic respiratory failure due to COVID 19 pneumonia Dehydration with hypernatremia/PRAVEENA Hypophosphatemia Elevated troponin/type II myocardial infarction Metabolic acidosis CKD stage III Abnormal LFTs Seizure disorder Hypomagnesemia Plan: Continue supportive care. Patient has very poor appetite. Attempted to call the family with no answer. Continue gentle hydration. Continue low-dose steroid. Continue antiepileptic drugs. Continue other medications as above
[2020-06-19] MEDS: Ascorbic Acid 500 mg Chewable Tablet PO SCH (10:14)
[2020-06-19] MEDS: Divalproex Sodium 125 mg Sprinkle Capsule PO SCH (10:15)
[2020-06-19] MEDS: Cholecalciferol (Vitamin D3) 400 UNITS TAB PO SCH (10:15)
[2020-06-19] MEDS: Dexamethasone 4 mg/ml Vial SLOW IVP SCH (10:15)
[2020-06-19] MEDS: levETIRAcetam 500 MG TAB PO SCH ×2 (10:15→19:53)
[2020-06-19] MEDS: Zinc Sulfate 220 MG CAP PO SCH (10:16)
[2020-06-19] MEDS: Enoxaparin Sodium 30 MG/0.3 ML SYRINGE SC SCH ×2 (10:16→19:53)
[2020-06-19] MEDS: Artificial Tear Sol 15 ML BOT EA EYE SCH (10:16)
[2020-06-19] MEDS ORDERED: D5W-AA 4.25% with LYTES 1,000 ML BAG IV SCH (12:00)
--- NOTE | 2020-06-19 20:43 | PDOC.HOSPP ---
- Subjective Encounter Date: 06/19/20 Encounter Time: 13:30 Subjective: Patient seen and examined for respiratory failure due to COVID-19 pneumonia. Poor appetite. Family was updated earlier today. No overnight events. - Objective Vital Signs & Weight: Vital Signs (12 hours) Temp Pulse Resp Pulse Ox 06/19/20 20:00 97.6 F 61 18 98 Weight Admit Weight 153 lb 6.4 oz Weight 153 lb 6.4 oz I&O: 06/18/20 06/19/20 06/20/20 06:59 06:59 06:59 Intake Total 600 Output Total 650 650 Balance -50 -650 Result Diagrams: 06/18/20 09:35 06/18/20 09:00 Additional Labs: Abnormal Lab Results - Last 48 hrs 06/18/20 09:00: Chloride 110 H, Carbon Dioxide 18 L, BUN 8 L, Albumin 2.5 L, Globulin 3.9 H, Albumin/Globulin Ratio 0.6 L 06/18/20 09:35: RBC 4.19 L, Monocytes # 0.6 H Hospitalist ROS - Review of Systems ROS unobtainable: due to mental status - Medication Medications: Active Medications Generic Name Dose Route Start Last Admin Trade Name Freq PRN Reason Stop Dose Admin Acetaminophen 650 mg 06/11/20 21:53 06/12/20 14:17 Acetaminophen 325 Mg Tab PO 650 mg Q4H PRN Administration Headache/Fever/Mild Pain (1-3) Amino Acids/Electrolytes/Dextrose 1,000 ml 06/19/20 12:00 06/19/20 12:57 D5w-Aa 4.25% With Lytes 1,000 Ml Bag IV 06/20/20 12:01 1,000 ml INF LUCIANO Administration Artificial Tears 1 drop 06/12/20 09:00 06/19/20 10:16 Artificial Tear Laura 15 Ml Bot EA EYE 1 drop DAILY LUCIANO Administration Ascorbic Acid 1,000 mg 06/12/20 09:00 06/19/20 10:14 Ascorbic Acid 500 Mg Chewable Tablet PO 1,000 mg DAILY LUCIANO Administration Cholecalciferol 400 units 06/12/20 09:00 06/19/20 10:15 Cholecalciferol (Vitamin D3) 400 Units Tab PO 400 units DAILY LUCIANO Administration Dexamethasone 4 mg 06/18/20 09:00 06/19/20 10:15 Dexamethasone 4 Mg/Ml Vial SLOW IVP 4 mg DAILY LUCIANO Administration Divalproex Sodium 125 mg 06/12/20 09:00 06/19/20 10:15 Divalproex Sodium 125 Mg Sprinkle Capsule PO 125 mg DAILY LUCIANO Administration Levetiracetam 750 mg 06/12/20 09:00 06/19/20 19:53 Levetiracetam 500 Mg Tab PO 750 mg BID LUCIANO Administration Sodium Chloride 10 ml 06/12/20 09:00 06/19/20 19:54 Flush - Normal Saline 10 Ml Syringe IVF Not Given Q12HR LUCIANO Zinc Sulfate 220 mg 06/12/20 09:00 06/19/20 10:16 Zinc Sulfate 220 Mg Cap PO Not Given DAILY LUCIANO - Exam General Appearance: ill appearing Neck: supple, no JVD Heart: RRR, no gallops Respiratory: no wheezes, no ronchi Gastrointestinal: soft, normal bowel sounds, no guarding, no rigidity Extremities: no cyanosis Neurological: no new deficit Hosp A/P - Plan DVT proph w/lovenox, DVT proph w/SCDs Acute hypoxic respiratory failure due to COVID 19 pneumonia Dehydration with hypernatremia/PRAVEENA Hypophosphatemia Elevated troponin/type II myocardial infarction Metabolic acidosis CKD stage III Abnormal LFTs Seizure disorder Hypomagnesemia Plan: Family was updated earlier today. Contact number is Raquel at [phone]. Will change IV fluid to PPN due to to malnutrition. Continue Decadron. Continue Depakote, Keppra with other medications as above. Check inflammatory markers in a.m. Continue isolation
[2020-06-20 06:04] LABS: #Eosinphils 0.1 thou/uL (0.0-0.7); #Lymphocytes 1.9 thou/uL (1.20-3.40); #Monocytes 0.6 thou/uL (0.11-0.59); #Neutrophils 4.6 thou/uL (1.40-6.50); %Basophils 0.3 % (0.0-1.0); %Eosinophils 0.8 % (0.0-10.0); %Lymphocytes 25.9 % (21.0-51.0); %Monocytes 8.4 % (0.0-10.0); %Neutrophils 64.6 % (42.0-75.0); Hemoglobin 12.7 g/dL (12.0-16.0); Mean Corpuscular HGB CONC 32.4 g/dL (32.0-36.0); Mean Corpuscular Hemoglobin 30.1 pg (27.0-31.0); Mean Platelet Volume 7.8 fL (7.4-10.4); Platelet Count 377 thou/uL (130-400); RBC Distribution Width 12.3 % (11.5-14.5); Red Blood Cell (RBC) Count 4.22 mill/uL (4.20-5.40); White Blood Cell (WBC) Count 7.2 thou/uL (4.8-10.8)
[2020-06-20 06:24] LABS: ALT (SGPT) 33 U/L (8-55); AST (SGOT) 30 U/L (5-34); Albumin 3.1 g/dL (3.4-4.8); Alkaline Phosphatase 69 U/L (40-110); Anion Gap 16 mmol/L (10-20); BUN (Urea Nitrogen) 11 mg/dL (9.8-20.1); Bilirubin, Total 0.7 mg/dL (0.2-1.2); CRP (Inflammatory) 3.61 mg/dL (= or < 0.5); Calc. Creatinine Clearance 62 mL/min (70-130); Calcium 8.8 mg/dL (7.8-10.44); Carbon Dioxide 24 mmol/L (23-31); Chloride 107 mmol/L (98-107); Glucose 78 mg/dL (83-110); Magnesium 1.8 mg/dL (1.6-2.6); Phosphorus 2.8 mg/dL (2.3-4.7); Protein, Total 7.1 g/dL (6.0-8.3); Sodium 143 mmol/L (136-145)
[2020-06-20] MEDS: Ascorbic Acid 500 mg Chewable Tablet PO SCH (09:00)
[2020-06-20] MEDS: Zinc Sulfate 220 MG CAP PO SCH (09:00)
[2020-06-20] MEDS: Enoxaparin Sodium 30 MG/0.3 ML SYRINGE SC SCH (09:00)
[2020-06-20] MEDS: levETIRAcetam 500 MG TAB PO SCH ×2 (09:00→20:40)
[2020-06-20] MEDS: Dexamethasone 4 mg/ml Vial SLOW IVP SCH (09:00)
[2020-06-20] MEDS: Divalproex Sodium 125 mg Sprinkle Capsule PO SCH (09:06)
[2020-06-20] MEDS: Artificial Tear Sol 15 ML BOT EA EYE SCH (09:06)
[2020-06-20] MEDS: Cholecalciferol (Vitamin D3) 400 UNITS TAB PO SCH (09:06)
--- NOTE | 2020-06-20 13:52 | RAD ---
PORTABLE CHEST: HISTORY: Shortness of breath, COVID positive. FINDINGS: Heart size is enlarged. Some bilateral infiltrative lung changes fairly similar to the prior exam. Some of the changes in the right mid lung field appear improved. IMPRESSION: Bilateral infiltrates. Minimal improvement to the right mid lung changes. POS: [facility]
[2020-06-20] MEDS ORDERED: D5W-AA 4.25% with LYTES 1,000 ML BAG IV SCH (14:45)
--- NOTE | 2020-06-20 20:01 | PDOC.HOSPP ---
- Subjective Encounter Date: 06/20/20 Encounter Time: 10:00 non-verbal Subjective: Patient seen and examined for COVID-19 pneumonia with respiratory failure. Very poor appetite. No new events reported. - Objective Vital Signs & Weight: Vital Signs (12 hours) Pulse Ox 06/20/20 08:00 98 Weight Admit Weight 153 lb 6.4 oz Weight 153 lb 6.4 oz I&O: 06/19/20 06/20/20 06/21/20 06:59 06:59 06:59 Output Total 650 Balance -650 Result Diagrams: 06/20/20 05:49 06/20/20 05:49 Additional Labs: Abnormal Lab Results - Last 48 hrs 06/20/20 05:49: C-Reactive Protein 3.61 H, Albumin 3.1 L, Globulin 4.0 H, Albumin/Globulin Ratio 0.8 L 06/20/20 05:49: Ferritin 542.85 H 06/20/20 05:49: Monocytes # 0.6 H 06/20/20 05:49: D-Dimer 7.19 H Radiology Reviewed by me: Yes (Chest x-raybilateral infiltrate) Hospitalist ROS - Review of Systems ROS unobtainable: due to mental status - Medication Medications: Active Medications Generic Name Dose Route Start Last Admin Trade Name Freq PRN Reason Stop Dose Admin Acetaminophen 650 mg 06/11/20 21:53 06/12/20 14:17 Acetaminophen 325 Mg Tab PO 650 mg Q4H PRN Administration Headache/Fever/Mild Pain (1-3) Amino Acids/Electrolytes/Dextrose 1,000 ml 06/20/20 14:45 06/20/20 16:14 D5w-Aa 4.25% With Lytes 1,000 Ml Bag IV 06/21/20 02:45 1,000 ml INF LUCIANO Administration Artificial Tears 1 drop 06/12/20 09:00 06/20/20 09:06 Artificial Tear Laura 15 Ml Bot EA EYE 1 drop DAILY LUCIANO Administration Ascorbic Acid 1,000 mg 06/12/20 09:00 06/20/20 09:00 Ascorbic Acid 500 Mg Chewable Tablet PO 1,000 mg DAILY LUCIANO Administration Cholecalciferol 400 units 06/12/20 09:00 06/20/20 09:06 Cholecalciferol (Vitamin D3) 400 Units Tab PO 400 units DAILY LUCIANO Administration Dexamethasone 4 mg 06/18/20 09:00 06/20/20 09:00 Dexamethasone 4 Mg/Ml Vial SLOW IVP 4 mg DAILY LUCIANO Administration Divalproex Sodium 125 mg 06/12/20 09:00 06/20/20 09:06 Divalproex Sodium 125 Mg Sprinkle Capsule PO 125 mg DAILY LUCIANO Administration Enoxaparin Sodium 30 mg 06/20/20 09:00 06/20/20 09:00 Enoxaparin Sodium 30 Mg/0.3 Ml Syringe SC 30 mg 09 LUCIANO Administration Levetiracetam 750 mg 06/12/20 09:00 06/20/20 09:00 Levetiracetam 500 Mg Tab PO 750 mg BID LUCIANO Administration Sodium Chloride 10 ml 06/12/20 09:00 06/20/20 09:06 Flush - Normal Saline 10 Ml Syringe IVF Not Given Q12HR LUCIANO Zinc Sulfate 220 mg 06/12/20 09:00 06/20/20 09:00 Zinc Sulfate 220 Mg Cap PO 220 mg DAILY LUCIANO Administration - Exam General Appearance: NAD Heart: RRR, no gallops Respiratory: rales, rhonchi Gastrointestinal: soft, non-distended, no guarding, no rigidity Extremities: no cyanosis, no clubbing Musculoskeletal: generalized weakness Psychiatric - other findings: Neuro/psychexam limited due to current mentation Hosp A/P - Plan DVT proph w/SCDs Acute hypoxic respiratory failure due to COVID 19 pneumonia Dehydration with hypernatremia/PRAVEENA Hypophosphatemia Elevated troponin/type II myocardial infarction Metabolic acidosis CKD stage III Abnormal LFTs Seizure disorder Hypomagnesemia Plan: Case discussed with the family over the phone. Symptom onset was 06/06. Patient has very poor appetite. Family requesting either NG or PEG tube. Will obtain chest x-ray. Will discuss with infectious disease if isolation can be discontinued since patient is more than 2 weeks from the symptom onset. Continue supportive care. Continue PPN. Inflammatory markers slowly improving. Continue dexamethasone, Keppra and other medications as above. Continue Lovenox for DVT prophylaxis. Will check COVID-19 antibodies. A.m. labs 06/19 Family was updated earlier today. Contact number is Raquel at [phone]. Will change IV fluid to PPN due to to malnutrition. Continue Decadron. Continue Depakote, Keppra with other medications as above. Check inflammatory markers in a.m. Continue isolation
[2020-06-21 06:27] LABS: #Eosinphils 0.1 thou/uL (0.0-0.7); #Lymphocytes 1.4 thou/uL (1.20-3.40); #Monocytes 0.6 thou/uL (0.11-0.59); #Neutrophils 4.3 thou/uL (1.40-6.50); %Basophils 0.1 % (0.0-1.0); %Eosinophils 0.8 % (0.0-10.0); %Lymphocytes 21.6 % (21.0-51.0); %Monocytes 9.9 % (0.0-10.0); %Neutrophils 67.6 % (42.0-75.0); Hemoglobin 12.1 g/dL (12.0-16.0); Mean Corpuscular HGB CONC 33.9 g/dL (32.0-36.0); Mean Corpuscular Hemoglobin 31.1 pg (27.0-31.0); Mean Corpuscular Volume 91.8 fL (78.0-98.0); Mean Platelet Volume 7.6 fL (7.4-10.4); Platelet Count 374 thou/uL (130-400); RBC Distribution Width 12.4 % (11.5-14.5); Red Blood Cell (RBC) Count 3.88 mill/uL (4.20-5.40); White Blood Cell (WBC) Count 6.3 thou/uL (4.8-10.8)
[2020-06-21 06:33] LABS: ALT (SGPT) 31 U/L (8-55); AST (SGOT) 27 U/L (5-34); Albumin 2.8 g/dL (3.4-4.8); Alkaline Phosphatase 67 U/L (40-110); Anion Gap 11 mmol/L (10-20); BUN (Urea Nitrogen) 16 mg/dL (9.8-20.1); Bilirubin, Total 0.8 mg/dL (0.2-1.2); Calc. Creatinine Clearance 62 mL/min (70-130); Calcium 8.7 mg/dL (7.8-10.44); Carbon Dioxide 27 mmol/L (23-31); Chloride 102 mmol/L (98-107); Globulin 3.7 g/dL (2.4-3.5); Glucose 103 mg/dL (83-110); Magnesium 1.9 mg/dL (1.6-2.6); Phosphorus 3.2 mg/dL (2.3-4.7); Potassium 3.8 mmol/L (3.5-5.1); Protein, Total 6.5 g/dL (6.0-8.3); Sodium 136 mmol/L (136-145)
[2020-06-21] MEDS: Ascorbic Acid 500 mg Chewable Tablet PO SCH (08:42)
[2020-06-21] MEDS: levETIRAcetam 500 MG TAB PO SCH ×2 (08:42→19:51)
[2020-06-21] MEDS: Enoxaparin Sodium 30 MG/0.3 ML SYRINGE SC SCH (08:42)
[2020-06-21] MEDS: Divalproex Sodium 125 mg Sprinkle Capsule PO SCH (08:42)
[2020-06-21] MEDS: Cholecalciferol (Vitamin D3) 400 UNITS TAB PO SCH (08:42)
[2020-06-21] MEDS: Zinc Sulfate 220 MG CAP PO SCH (08:43)
[2020-06-21] MEDS: Artificial Tear Sol 15 ML BOT EA EYE SCH (08:43)
[2020-06-21] MEDS: Dexamethasone 4 mg/ml Vial SLOW IVP SCH (08:43)
[2020-06-21] MEDS: D5W-AA 4.25% with LYTES 1,000 ML BAG IV SCH (14:32)
[2020-06-21 14:59] LABS: SARS-CoV-2 IgG Ab Reactive (NonReactive); SARS-CoV-2 IgG Index 7.42 S/CO (< 1.40)
--- NOTE | 2020-06-21 15:33 | PDOC.PALCO ---
Palliative Care Consult - Consult Details Requesting Physician: Dr Warner Reason for Consult: goals of care, assistance with communication prognosis/disease - Pertinent HPI 84 year old female who is a resident at a [facility] secondary to progression of Dementia and assistance required for all ADL. Incontinent of bowel and bladder. Patient was diagnosed with Covid 19 06/06/2020, cough progressed and EMS was called, poor saturation at 77% patient transported to [facility] for further evaluation. Identified to have renal failure, hypernatremia, elevated troponin paired with Covid 19 and respiratory failure. Admitted for medical management. Baseline at facility: wheelchair bound, verbal with non sensical speech. Fair intake, appears diet was mechanical soft or pureed. Assist for all ADL. Increase in falls. Fast 7E - Pertinent PMH Dementia, Dysphagia, HTN, epilepsy - Social History Smoking Status: Unknown if ever smoked Smoking: no tobacco exposure Alcohol Use: none Drug Use History: none Living Situation: [facility] - Medications MAR Reviewed: Yes - Allergies Allergies/Adverse Reactions: Allergies Allergy/AdvReac Type Severity Reaction Status Date / Time No Known Drug Allergies Allergy Verified 06/11/20 22:17 - Subjective Sleeping, difficult to arouse. Aphagic, non participatory in exam. - ROS Non Response: due to mental status - Objective Vital Signs: Vital Signs - Most Recent Temp Pulse Resp BP Pulse Ox 99.7 F H 73 20 94/66 93 L 06/21/20 08:00 06/21/20 08:00 06/21/20 08:00 06/21/20 08:00 06/21/20 08:00 Palliative Performance Scale: 20 - Physical Exam Constitutional: encephalitic, ill appearing HEENT: EOMI, moist MMs Respiratory: unlabored breathing Deviation from normal: mildly adventicious to upper lobes Cardiovascular: no significant murmur, RRR Gastrointestinal: soft, non-tender, incontinent Genitourinary: incontinent Musculoskeletal: diffuse muscle atrophy Neurology: moves all 4 limbs Skin: no lesions, no rash, fragile Deviation from normal: Dry Deviation from normal: aphagic - Problem List (1) Dysphasia Code(s): R47.02 - DYSPHASIA Current Visit: Yes Status: Acute (2) Palliative care encounter Code(s): Z51.5 - ENCOUNTER FOR PALLIATIVE CARE Current Visit: Yes Status: Acute (3) Acute renal failure Current Visit: Yes Status: Acute Qualifiers: Acute renal failure type: unspecified Qualified Code(s): N17.9 - Acute kidney failure, unspecified (4) Acute respiratory failure Code(s): J96.00 - ACUTE RESPIRATORY FAILURE, UNSP W HYPOXIA OR HYPERCAPNIA Current Visit: Yes Status: Acute Qualifiers: Respiratory failure complication: hypoxia Qualified Code(s): J96.01 - Acute respiratory failure with hypoxia (5) Dementia Code(s): F03.90 - UNSPECIFIED DEMENTIA WITHOUT BEHAVIORAL DISTURBANCE Current Visit: Yes Status: Acute Qualifiers: Dementia type: unspecified type (6) Pneumonia due to COVID-19 virus Code(s): U07.1 - COVID-19; J12.89 - OTHER VIRAL PNEUMONIA Current Visit: Yes Status: Acute - Plan/Recommendations Plan: Palliative care has been communicating with patient family. Discussed with Dr Warner and speech therapy. Patient remains with dysphagia, risk with diet/aspiration secondary to effects of Covid and progression of D ementia. Assessed patient, attempted to call family x 3. Voice mailbox full. Unable to communicate with family in relation to Goal of care Concern is if patient require PEG it may not change/enhance life expectancy secondary to poor functional status and morbidities prior to impact of Covid. Please also refer to Palliative care notes in note section [45] minutes spent on this encounter with >50% of the time in counseling and coordination of care. Thank you for this very appropriate consult.
--- NOTE | 2020-06-21 19:35 | PDOC.HOSPP ---
- Subjective Encounter Date: 06/21/20 Encounter Time: 10:30 Subjective: Patient evaluated for respiratory failure due to COVID-19 pneumonia. Poor appetite. On PPN. No other overnight issues. - Objective Vital Signs & Weight: Vital Signs (12 hours) Temp Pulse Resp BP Pulse Ox 06/21/20 08:00 99.7 F H 73 20 94/66 93 L Weight Admit Weight 153 lb 6.4 oz Weight 153 lb 6.4 oz I&O: 06/20/20 06/21/20 06/22/20 06:59 06:59 06:59 Intake Total 996 Balance 996 Result Diagrams: 06/21/20 05:46 06/21/20 05:46 Additional Labs: Abnormal Lab Results - Last 48 hrs 06/20/20 05:49: C-Reactive Protein 3.61 H, Albumin 3.1 L, Globulin 4.0 H, Albumin/Globulin Ratio 0.8 L 06/20/20 05:49: Ferritin 542.85 H 06/20/20 05:49: Monocytes # 0.6 H 06/20/20 05:49: D-Dimer 7.19 H 06/21/20 05:46: Albumin 2.8 L, Globulin 3.7 H, Albumin/Globulin Ratio 0.8 L 06/21/20 05:46: RBC 3.88 L, Hct 35.6 L, MCH 31.1 H, Monocytes # 0.6 H Radiology Reviewed by me: Yes ( chest x-raybilateral infiltrate) Hospitalist ROS - Review of Systems ROS unobtainable: due to mental status - Medication Medications: Active Medications Generic Name Dose Route Start Last Admin Trade Name Freq PRN Reason Stop Dose Admin Acetaminophen 650 mg 06/11/20 21:53 06/12/20 14:17 Acetaminophen 325 Mg Tab PO 650 mg Q4H PRN Administration Headache/Fever/Mild Pain (1-3) Amino Acids/Electrolytes/Dextrose 1,000 ml 06/21/20 13:30 06/21/20 14:32 D5w-Aa 4.25% With Lytes 1,000 Ml Bag IV 07/21/20 01:31 1,000 ml Q12H LUCIANO Administration Artificial Tears 1 drop 06/12/20 09:00 06/21/20 08:43 Artificial Tear Laura 15 Ml Bot EA EYE 1 drop DAILY LUCIANO Administration Ascorbic Acid 1,000 mg 06/12/20 09:00 06/21/20 08:42 Ascorbic Acid 500 Mg Chewable Tablet PO 1,000 mg DAILY LUCIANO Administration Cholecalciferol 400 units 06/12/20 09:00 06/21/20 08:42 Cholecalciferol (Vitamin D3) 400 Units Tab PO 400 units DAILY LUCIANO Administration Dexamethasone 4 mg 06/18/20 09:00 06/21/20 08:43 Dexamethasone 4 Mg/Ml Vial SLOW IVP 4 mg DAILY LUCIANO Administration Divalproex Sodium 125 mg 06/12/20 09:00 06/21/20 08:42 Divalproex Sodium 125 Mg Sprinkle Capsule PO 125 mg DAILY LUCIANO Administration Enoxaparin Sodium 30 mg 06/20/20 09:00 06/21/20 08:42 Enoxaparin Sodium 30 Mg/0.3 Ml Syringe SC 30 mg 0900 LUCIANO Administration Levetiracetam 750 mg 06/12/20 09:00 06/21/20 08:42 Levetiracetam 500 Mg Tab PO 750 mg BID LUCIANO Administration Sodium Chloride 10 ml 06/12/20 09:00 06/21/20 08:43 Flush - Normal Saline 10 Ml Syringe IVF 10 ml Q12HR LUCIANO Administration Zinc Sulfate 220 mg 06/12/20 09:00 06/21/20 08:43 Zinc Sulfate 220 Mg Cap PO Not Given DAILY LUCIANO - Exam General Appearance: ill appearing Neck: supple, no JVD Heart: RRR, no gallops Respiratory: rales, rhonchi Gastrointestinal: soft, no guarding, no rigidity Extremities: no cyanosis Hosp A/P - Plan DVT proph w/SCDs Acute hypoxic respiratory failure due to COVID 19 pneumonia Dehydration with hypernatremia/PRAVEENA Hypophosphatemia Elevated troponin/type II myocardial infarction Metabolic acidosis CKD stage III Abnormal LFTs Seizure disorder Hypomagnesemia Plan: Continue PPN. COVID-19 IgG was 7.2. Inflammatory markers slowly improving. Case discussed with palliative care who will attempt to reach family today regarding PEG tube versus NG tube feeding. Continue Decadron and other medications as above. Will discontinue isolation after total of 20 days. 06/20 Case discussed with the family over the phone. Symptom onset was 06/06. Patient has very poor appetite. Family requesting either NG or PEG tube. Will obtain chest x-ray. Will discuss with infectious disease if isolation can be discontinued since patient is more than 2 weeks from the symptom onset. Continue supportive care. Continue PPN. Inflammatory markers slowly improving. Continue dexamethasone, Keppra and other medications as above. Continue Lovenox for DVT prophylaxis. Will check COVID-19 antibodies. A.m. labs 06/19 Family was updated earlier today. Contact number is Raquel at [phone]. Will change IV fluid to PPN due to to malnutrition. Continue Decadron. Continue Depakote, Keppra with other medications as above. Check inflammatory markers in a.m. Continue isolation
[2020-06-22] MEDS: D5W-AA 4.25% with LYTES 1,000 ML BAG IV SCH ×2 (01:59→15:06)
[2020-06-22] MEDS: Artificial Tear Sol 15 ML BOT EA EYE SCH (08:46)
[2020-06-22] MEDS: levETIRAcetam 500 MG TAB PO SCH ×2 (08:46→19:48)
[2020-06-22] MEDS: Cholecalciferol (Vitamin D3) 400 UNITS TAB PO SCH (08:46)
[2020-06-22] MEDS: Enoxaparin Sodium 30 MG/0.3 ML SYRINGE SC SCH (08:46)
[2020-06-22] MEDS: Divalproex Sodium 125 mg Sprinkle Capsule PO SCH (08:47)
[2020-06-22] MEDS: Ascorbic Acid 500 mg Chewable Tablet PO SCH (08:47)
[2020-06-22] MEDS: Zinc Sulfate 220 MG CAP PO SCH (08:47)
[2020-06-22] MEDS: Dexamethasone 4 mg/ml Vial SLOW IVP SCH (08:47)
--- NOTE | 2020-06-22 18:29 | PDOC.HOSPP ---
- Subjective Encounter Date: 06/22/20 Encounter Time: 12:30 Subjective: Patient seen and examined for respiratory failure due to COVID-19 pneumonia. Appetite slowly improving. No overnight events. - Objective Vital Signs & Weight: Vital Signs (12 hours) Temp Pulse Resp BP Pulse Ox 06/22/20 08:00 98.5 F 70 20 101/58 L 99 Weight Admit Weight 153 lb 6.4 oz Weight 153 lb 6.4 oz I&O: 06/21/20 06/22/20 06/23/20 06:59 06:59 06:59 Intake Total 996 1096 Balance 996 1096 Result Diagrams: 06/21/20 05:46 06/21/20 05:46 Additional Labs: Abnormal Lab Results - Last 48 hrs 06/21/20 05:46: Albumin 2.8 L, Globulin 3.7 H, Albumin/Globulin Ratio 0.8 L 06/21/20 05:46: RBC 3.88 L, Hct 35.6 L, MCH 31.1 H, Monocytes # 0.6 H Hospitalist ROS - Review of Systems ROS unobtainable: due to mental status - Medication Medications: Active Medications Generic Name Dose Route Start Last Admin Trade Name Freq PRN Reason Stop Dose Admin Acetaminophen 650 mg 06/11/20 21:53 06/12/20 14:17 Acetaminophen 325 Mg Tab PO 650 mg Q4H PRN Administration Headache/Fever/Mild Pain (1-3) Amino Acids/Electrolytes/Dextrose 1,000 ml 06/21/20 13:30 06/22/20 15:06 D5w-Aa 4.25% With Lytes 1,000 Ml Bag IV 07/21/20 01:31 1,000 ml Q12H LUCIANO Administration Artificial Tears 1 drop 06/12/20 09:00 06/22/20 08:46 Artificial Tear Laura 15 Ml Bot EA EYE 1 drop DAILY LUCIANO Administration Ascorbic Acid 1,000 mg 06/12/20 09:00 06/22/20 08:47 Ascorbic Acid 500 Mg Chewable Tablet PO 1,000 mg DAILY LUCIANO Administration Cholecalciferol 400 units 06/12/20 09:00 06/22/20 08:46 Cholecalciferol (Vitamin D3) 400 Units Tab PO 400 units DAILY LUCIANO Administration Dexamethasone 4 mg 06/18/20 09:00 06/22/20 08:47 Dexamethasone 4 Mg/Ml Vial SLOW IVP 4 mg DAILY LUCIANO Administration Divalproex Sodium 125 mg 06/12/20 09:00 06/22/20 08:47 Divalproex Sodium 125 Mg Sprinkle Capsule PO 125 mg DAILY LUCIANO Administration Enoxaparin Sodium 30 mg 06/20/20 09:00 06/22/20 08:46 Enoxaparin Sodium 30 Mg/0.3 Ml Syringe SC 30 mg 0900 LUCIANO Administration Levetiracetam 750 mg 06/12/20 09:00 06/22/20 08:46 Levetiracetam 500 Mg Tab PO 750 mg BID LUCIANO Administration Sodium Chloride 10 ml 06/12/20 09:00 06/22/20 08:47 Flush - Normal Saline 10 Ml Syringe IVF 10 ml Q12HR LUCIANO Administration Zinc Sulfate 220 mg 06/12/20 09:00 06/22/20 08:47 Zinc Sulfate 220 Mg Cap PO 220 mg DAILY LUCIANO Administration - Exam General Appearance: ill appearing Heart: RRR, no gallops Respiratory: rales, rhonchi Gastrointestinal: soft, no guarding, no rigidity Extremities: no cyanosis, no clubbing Neurological - other findings: Neuro/psychexam limited due to current mentation Hosp A/P - Plan DVT proph w/SCDs Acute hypoxic respiratory failure due to COVID 19 pneumonia Dehydration with hypernatremia/PRAVEENA Hypophosphatemia Elevated troponin/type II myocardial infarction Metabolic acidosis CKD stage III Abnormal LFTs Seizure disorder Hypomagnesemia Plan: Continue PPN, Decadron and other Medications as above. Continue supportive care. Appetite slowly improving. A.m. labs. DC planning once appetite improves. 06/21 Continue PPN. COVID-19 IgG was 7.2. Inflammatory markers slowly improving. Case discussed with palliative care who will attempt to reach family today regarding PEG tube versus NG tube feeding. Continue Decadron and other medi cations as above. Will discontinue isolation after total of 20 days. 06/20 Case discussed with the family over the phone. Symptom onset was 06/06. Patient has very poor appetite. Family requesting either NG or PEG tube. Will obtain chest x-ray. Will discuss with infectious disease if isolation can be discontinued since patient is more than 2 weeks from the symptom onset. Continue supportive care. Continue PPN. Inflammatory markers slowly improving. Continue dexamethasone, Keppra and other medications as above. Continue Lovenox for DVT prophylaxis. Will check COVID-19 antibodies. A.m. labs 06/19 Family was updated earlier today. Contact number is Raquel at [phone]. Will change IV fluid to PPN due to to malnutrition. Continue Decadron. Continue Depakote, Keppra with other medications as above. Check inflammatory markers in a.m. Continue isolation
[2020-06-23] MEDS: D5W-AA 4.25% with LYTES 1,000 ML BAG IV SCH ×2 (03:46→15:40)
[2020-06-23 06:56] LABS: #Eosinphils 0.1 thou/uL (0.0-0.7); #Lymphocytes 1.4 thou/uL (1.20-3.40); #Monocytes 0.8 thou/uL (0.11-0.59); %Basophils 0.6 % (0.0-1.0); %Eosinophils 1.1 % (0.0-10.0); %Lymphocytes 22.6 % (21.0-51.0); %Neutrophils 62.7 % (42.0-75.0); Hemoglobin 12.2 g/dL (12.0-16.0); Mean Corpuscular HGB CONC 32.5 g/dL (32.0-36.0); Mean Corpuscular Hemoglobin 30.6 pg (27.0-31.0); Mean Corpuscular Volume 94.2 fL (78.0-98.0); Mean Platelet Volume 7.7 fL (7.4-10.4); Platelet Count 330 thou/uL (130-400); RBC Distribution Width 12.6 % (11.5-14.5); Red Blood Cell (RBC) Count 3.98 mill/uL (4.20-5.40); White Blood Cell (WBC) Count 6.4 thou/uL (4.8-10.8)
[2020-06-23 07:09] LABS: Phosphorus 3.1 mg/dL (2.3-4.7)
[2020-06-23 07:10] LABS: Anion Gap 14 mmol/L (10-20); BUN (Urea Nitrogen) 24 mg/dL (9.8-20.1); Calc. Creatinine Clearance 63 mL/min (70-130); Calcium 8.9 mg/dL (7.8-10.44); Carbon Dioxide 22 mmol/L (23-31); Chloride 104 mmol/L (98-107); Glucose 91 mg/dL (83-110); Magnesium 2.1 mg/dL (1.6-2.6); Potassium 5.1 mmol/L (3.5-5.1); Sodium 135 mmol/L (136-145)
[2020-06-23] MEDS: Ascorbic Acid 500 mg Chewable Tablet PO SCH (08:41)
[2020-06-23] MEDS: Zinc Sulfate 220 MG CAP PO SCH (08:41)
[2020-06-23] MEDS: Cholecalciferol (Vitamin D3) 400 UNITS TAB PO SCH (08:41)
[2020-06-23] MEDS: Divalproex Sodium 125 mg Sprinkle Capsule PO SCH (08:41)
[2020-06-23] MEDS: levETIRAcetam 500 MG TAB PO SCH ×2 (08:41→21:07)
[2020-06-23] MEDS: Enoxaparin Sodium 30 MG/0.3 ML SYRINGE SC SCH (08:42)
[2020-06-23] MEDS: Artificial Tear Sol 15 ML BOT EA EYE SCH (08:42)
[2020-06-23] MEDS: Dexamethasone 4 mg/ml Vial SLOW IVP SCH (08:42)
--- NOTE | 2020-06-23 23:39 | PDOC.HOSPP ---
- Subjective Encounter Date: 06/23/20 Encounter Time: 12:00 non-verbal Subjective: Patient seen and examined for respiratory failure. Continues to report appetite. Remains on PPN. - Objective Vital Signs & Weight: Vital Signs (12 hours) Temp Pulse Resp BP Pulse Ox 06/23/20 22:17 97.8 F 70 18 159/58 H 94 L 06/23/20 20:58 98 Weight Admit Weight 153 lb 6.4 oz Weight 153 lb 6.4 oz I&O: 06/22/20 06/23/20 06/24/20 06:59 06:59 06:59 Intake Total 1096 1056 Output Total 800 Balance 1096 1056 -800 Result Diagrams: 06/23/20 06:25 06/23/20 06:25 Additional Labs: Abnormal Lab Results - Last 48 hrs 06/23/20 06:25: Sodium 135 L, Carbon Dioxide 22 L, BUN 24 H 06/23/20 06:25: RBC 3.98 L, Monocytes % 13.0 H, Monocytes # 0.8 H Hospitalist ROS - Review of Systems ROS unobtainable: due to mental status - Medication Medications: Active Medications Generic Name Dose Route Start Last Admin Trade Name Freq PRN Reason Stop Dose Admin Acetaminophen 650 mg 06/11/20 21:53 06/12/20 14:17 Acetaminophen 325 Mg Tab PO 650 mg Q4H PRN Administration Headache/Fever/Mild Pain (1-3) Amino Acids/Electrolytes/Dextrose 1,000 ml 06/21/20 13:30 06/23/20 15:40 D5w-Aa 4.25% With Lytes 1,000 Ml Bag IV 07/21/20 01:31 1,000 ml Q12H LUCIANO Administration Artificial Tears 1 drop 06/12/20 09:00 06/23/20 08:42 Artificial Tear Laura 15 Ml Bot EA EYE 1 drop DAILY LUCIANO Administration Ascorbic Acid 1,000 mg 06/12/20 09:00 06/23/20 08:41 Ascorbic Acid 500 Mg Chewable Tablet PO 1,000 mg DAILY LUCIANO Administration Cholecalciferol 400 units 06/12/20 09:00 06/23/20 08:41 Cholecalciferol (Vitamin D3) 400 Units Tab PO 400 units DAILY LUCIANO Administration Dexamethasone 4 mg 06/18/20 09:00 06/23/20 08:42 Dexamethasone 4 Mg/Ml Vial SLOW IVP 4 mg DAILY LUCIANO Administration Divalproex Sodium 125 mg 06/12/20 09:00 06/23/20 08:41 Divalproex Sodium 125 Mg Sprinkle Capsule PO 125 mg DAILY LUCIANO Administration Enoxaparin Sodium 30 mg 06/20/20 09:00 06/23/20 08:42 Enoxaparin Sodium 30 Mg/0.3 Ml Syringe SC 30 mg 0900 LUCIANO Administration Levetiracetam 750 mg 06/12/20 09:00 06/23/20 21:07 Levetiracetam 500 Mg Tab PO 750 mg BID LUCIANO Administration Sodium Chloride 10 ml 06/12/20 09:00 06/23/20 21:09 Flush - Normal Saline 10 Ml Syringe IVF 10 ml Q12HR LUCIANO Administration Zinc Sulfate 220 mg 06/12/20 09:00 06/23/20 08:41 Zinc Sulfate 220 Mg Cap PO 220 mg DAILY LUCIANO Administration - Exam General Appearance: ill appearing Neck: supple, no JVD Heart: RRR, no gallops Respiratory: no wheezes, rales, rhonchi Gastrointestinal: soft, no guarding, no rigidity Extremities: no cyanosis Musculoskeletal: generalized weakness Hosp A/P - Plan DVT proph w/SCDs Acute hypoxic respiratory failure due to COVID 19 pneumonia Dehydration with hypernatremia/PRAVEENA Hypophosphatemia Elevated troponin/type II myocardial infarction Metabolic acidosis CKD stage III Abnormal LFTs Seizure disorder Hypomagnesemia Plan: Continue supportive care. Continue PPN. Continues to have poor appetite. Recheck labs including inflammatory markers in a.m. NG tube feeding may be tried however patient will require restraint. Continue to monitor 06/22 Continue PPN, Decadron and other Medications as above. Continue supportive care. Appetite slowly improving. A.m. labs. DC planning once appetite im proves. 06/21 Continue PPN. COVID-19 IgG was 7.2. Inflammatory markers slowly improving. Case discussed with palliative care who will attempt to reach family today regarding PEG tube versus NG tube feeding. Continue Decadron and other medications as above. Will discontinue isolation after total of 20 days. 06/20 Case discussed with the family over the phone. Symptom onset was 06/06. Patient has very poor appetite. Family requesting either NG or PEG tube. Will obtain chest x-ray. Will discuss with infectious disease if isolation can be discontinued since patient is more than 2 weeks from the symptom onset. Continue supportive care. Continue PPN. Inflammatory markers slowly improving. Continue dexamethasone, Keppra and other medications as above. Continue Lovenox for DVT prophylaxis. Will check COVID-19 antibodies. A.m. labs 06/19 Family was updated earlier today. Contact number is Raquel at [phone]. Will change IV fluid to PPN due to to malnutrition. Continue Decadron. Continue Depakote, Keppra with other medications as above. Check inflammatory markers in a.m. Continue isolation
[2020-06-24] MEDS: Sodium Acetate 2 mEq/ml 20 MEQ, Sodium Chloride 15 MEQ, Potassium ACETATE 10 MEQ, Potas... IV SCH ×2 (03:54→17:08)
[2020-06-24 06:49] LABS: #Eosinphils 0.1 thou/uL (0.0-0.7); #Lymphocytes 1.2 thou/uL (1.20-3.40); #Monocytes 0.6 thou/uL (0.11-0.59); #Neutrophils 3.8 thou/uL (1.40-6.50); %Basophils 0.4 % (0.0-1.0); %Eosinophils 1.7 % (0.0-10.0); %Lymphocytes 20.5 % (21.0-51.0); %Neutrophils 66.3 % (42.0-75.0); Hemoglobin 12.9 g/dL (12.0-16.0); Mean Corpuscular HGB CONC 31.9 g/dL (32.0-36.0); Mean Corpuscular Hemoglobin 29.5 pg (27.0-31.0); Mean Corpuscular Volume 92.6 fL (78.0-98.0); Mean Platelet Volume 7.9 fL (7.4-10.4); Platelet Count 298 thou/uL (130-400); RBC Distribution Width 12.6 % (11.5-14.5); Red Blood Cell (RBC) Count 4.38 mill/uL (4.20-5.40); White Blood Cell (WBC) Count 5.8 thou/uL (4.8-10.8)
[2020-06-24 07:13] LABS: ALT (SGPT) 30 U/L (8-55); AST (SGOT) 25 U/L (5-34); Alkaline Phosphatase 76 U/L (40-110); Anion Gap 15 mmol/L (10-20); BUN (Urea Nitrogen) 25 mg/dL (9.8-20.1); Bilirubin, Total 0.5 mg/dL (0.2-1.2); CRP (Inflammatory) 2.05 mg/dL (= or < 0.5); Calc. Creatinine Clearance 65 mL/min (70-130); Carbon Dioxide 20 mmol/L (23-31); Chloride 106 mmol/L (98-107); Globulin 4.2 g/dL (2.4-3.5); Glucose 108 mg/dL (83-110); Potassium 5.1 mmol/L (3.5-5.1); Protein, Total 7.2 g/dL (6.0-8.3); Sodium 136 mmol/L (136-145)
--- NOTE | 2020-06-24 08:43 | PDOC.HOSPP ---
- Subjective Encounter Date: 06/24/20 Encounter Time: 11:50 non-verbal Subjective: Patient continues to refuse to eat. No verbal to me. - Objective Vital Signs & Weight: Vital Signs (12 hours) Temp Pulse Resp BP Pulse Ox 06/23/20 22:17 97.8 F 70 18 159/58 H 94 L 06/23/20 20:58 98 Weight Admit Weight 153 lb 6.4 oz Weight 153 lb 6.4 oz I&O: 06/23/20 06/24/20 06/25/20 06:59 06:59 06:59 Intake Total 1056 1070 Output Total 800 Balance 1056 270 Result Diagrams: 06/24/20 06:22 06/24/20 06:22 Hospitalist ROS - Review of Systems ROS unobtainable: due to mental status - Medication Medications: Active Medications Generic Name Dose Route Start Last Admin Trade Name Freq PRN Reason Stop Dose Admin Acetaminophen 650 mg 06/11/20 21:53 06/12/20 14:17 Acetaminophen 325 Mg Tab PO 650 mg Q4H PRN Administration Headache/Fever/Mild Pain (1-3) Artificial Tears 1 drop 06/12/20 09:00 06/23/20 08:42 Artificial Tear Laura 15 Ml Bot EA EYE 1 drop DAILY LUCIANO Administration Ascorbic Acid 1,000 mg 06/12/20 09:00 06/23/20 08:41 Ascorbic Acid 500 Mg Chewable Tablet PO 1,000 mg DAILY LUCIANO Administration Cholecalciferol 400 units 06/12/20 09:00 06/23/20 08:41 Cholecalciferol (Vitamin D3) 400 Units Tab PO 400 units DAILY LUCIANO Administration Dexamethasone 4 mg 06/18/20 09:00 06/23/20 08:42 Dexamethasone 4 Mg/Ml Vial SLOW IVP 4 mg DAILY ULCIANO Administration Divalproex Sodium 125 mg 06/12/20 09:00 06/23/20 08:41 Divalproex Sodium 125 Mg Sprinkle Capsule PO 125 mg DAILY LUCIANO Administration Enoxaparin Sodium 30 mg 06/20/20 09:00 06/23/20 08:42 Enoxaparin Sodium 30 Mg/0.3 Ml Syringe SC 30 mg 0900 LUCIANO Administration Sodium Acetate 20 meq/ Sodium 1,034.7641 mls @ 83.33 mls/hr 06/24/20 01:15 06/24/20 03:54 Chloride 15 meq/ Potassium IV 07/21/20 01:30 1,034.7641 mls Acetate 10 meq/ Potassium INF LUCIANO Administration Phosphate 15 mmol/ Calcium Gluconate 4.5 meq/ Magnesium Sulfate 5 meq/ Amino Acids/ Dextrose Levetiracetam 750 mg 06/12/20 09:00 06/23/20 21:07 Levetiracetam 500 Mg Tab PO 750 mg BID LUCIANO Administration Sodium Chloride 10 ml 06/12/20 09:00 06/23/20 21:09 Flush - Normal Saline 10 Ml Syringe IVF 10 ml Q12HR LUCIANO Administration Zinc Sulfate 220 mg 06/12/20 09:00 06/23/20 08:41 Zinc Sulfate 220 Mg Cap PO 220 mg DAILY LUCIANO Administration - Exam General - other findings: somnolent, unable to get her to wake up and interact ENT: moist mucosa Heart: RRR, no murmur, no gallops, no rubs Respiratory: CTAB, no wheezes, no rales, no ronchi Gastrointestinal: soft, non-tender, non-distended, normal bowel sounds Psychiatric: not oriented, somnolent Hosp A/P - Plan DVT proph w/SCDs Acute hypoxic respiratory failure due to COVID 19 pneumonia Dehydration with hypernatremia/PRAVEENA Hypophosphatemia Elevated troponin/type II myocardial infarction Metabolic acidosis CKD stage III Abnormal LFTs Seizure disorder Hypomagnesemia Plan: Continue supportive care. Continue PPN. Continues to have poor appetite. Rechecked inflammatory markers remain elevated, though improving. Sating well on Room air. Our last Covid-19 positive test was from June 13, however [facility]11 so should be cleared of infectivity by tomorrow. I spoke with patient's niece in law and she confirmed that the family wants a PEG tube placed. Will consult GI. 06/22 Continue PPN, Decadron and other Medications as above. Continue supportive care. Appetite slowly improving. A.m. labs. DC planning once appetite improves. 06/21 Continue PPN. COVID-19 IgG was 7.2. Inflammatory markers slowly improving. Case discussed with palliative care who will attempt to reach family today regarding PEG tube versus NG tube feeding. Continue Decadron and other medications as above. Will discontinue isolation after total of 20 days. 06/20 Case discussed with the family over the phone. Symptom onset was 06/06. Patient has very poor appetite. Family requesting either NG or PEG tube. Will obtain chest x-ray. Will discuss with infectious disease if isolation can be discontinued since patient is more than 2 weeks from the symptom onset. Continue supportive care. Continue PPN. Inflammatory markers slowly improving. Continue dexamethasone, Keppra and other medications as above. Continue Lovenox for DVT prophylaxis. Will check COVID-19 antibodies. A.m. labs 06/19 Family was updated earlier today. Contact number is Raquel at [phone]. Will change IV fluid to PPN due to to malnutrition. Continue Decadron. Continue Depakote, Keppra with other medications as above. Check inflammatory markers in a.m. Continue isolation
[2020-06-24] MEDS: Cholecalciferol (Vitamin D3) 400 UNITS TAB PO SCH (09:42)
[2020-06-24] MEDS: Dexamethasone 4 mg/ml Vial SLOW IVP SCH (09:42)
[2020-06-24] MEDS: Enoxaparin Sodium 30 MG/0.3 ML SYRINGE SC SCH (09:43)
[2020-06-24] MEDS: levETIRAcetam 500 MG TAB PO SCH ×2 (09:43→20:43)
[2020-06-24] MEDS: Ascorbic Acid 500 mg Chewable Tablet PO SCH (09:43)
[2020-06-24] MEDS: Divalproex Sodium 125 mg Sprinkle Capsule PO SCH (09:43)
[2020-06-24] MEDS: Zinc Sulfate 220 MG CAP PO SCH (09:46)
[2020-06-24] MEDS: Artificial Tear Sol 15 ML BOT EA EYE SCH (10:00)
--- NOTE | 2020-06-24 17:21 | PDOC.PALPN ---
Palliative Progress Note - Subjective Sleeping on side, aphagic, not able to engage in assessment. Staff report continued poor intake. Bedbound, total assist for ADL's FAST 7d - Objective Vital Signs: Vital Signs - Most Recent Temp Pulse Resp BP Pulse Ox 97.9 F 70 20 126/82 99 06/24/20 08:00 06/24/20 08:00 06/24/20 08:00 06/24/20 08:00 06/24/20 09:45 - Physical Exam Constitutional: cachectic, encephalitic, ill appearing HEENT: moist MMs Respiratory: no rales, no rhonchi, no wheezing, unlabored breathing Cardiovascular: RRR Gastrointestinal: soft, non-tender, positive bowel sounds, incontinent Genitourinary: incontinent Musculoskeletal: no cyanosis, no clubbing, diffuse muscle atrophy Skin: cap refill <2 seconds, fragile Deviation from normal: Unable to fully appreciate orientation - Assessment (1) Dysphasia Code(s): R47.02 - DYSPHASIA Current Visit: Yes Status: Acute (2) Palliative care encounter Code(s): Z51.5 - ENCOUNTER FOR PALLIATIVE CARE Current Visit: Yes Status: Acute (3) Acute renal failure Current Visit: Yes Status: Acute Qualifiers: Acute renal failure type: unspecified Qualified Code(s): N17.9 - Acute kidney failure, unspecified (4) Acute respiratory failure Code(s): J96.00 - ACUTE RESPIRATORY FAILURE, UNSP W HYPOXIA OR HYPERCAPNIA Current Visit: Yes Status: Acute Qualifiers: Respiratory failure complication: hypoxia Qualified Code(s): J96.01 - Acute respiratory failure with hypoxia (5) Dementia Code(s): F03.90 - UNSPECIFIED DEMENTIA WITHOUT BEHAVIORAL DISTURBANCE Current Visit: Yes Status: Acute Qualifiers: Dementia type: unspecified type (6) Pneumonia due to COVID-19 virus Code(s): U07.1 - COVID-19; J12.89 - OTHER VIRAL PNEUMONIA Current Visit: Yes Status: Acute - Plan Plan: Multiple conversations with patent nephkrystian Quigley in relation to disease progression, and consideration for DNAR status and comfort measures in lieu of PEG. Currently on PPN Education in relation to Dementia, disease progression Goal of Care: Continue with aggressive measures PEG for nutritional support Communicated with Dr Pena Palliative care will sign off as Goals have been established. If we can assist in the future with revisiting Goal of Care or complex decision making please re consult our team. Thank you for this very appropriate consult [25] minutes spent on this encounter with >50% of the time in counseling and coordination of care. - ROS Non Response: due to mental status
--- NOTE | 2020-06-25 07:36 | PDOC.HOSPP ---
- Subjective Encounter Date: 06/25/20 Encounter Time: 11:30 Subjective: Patient just back from getting PEG tube. Opened her eyes for nurse but otherwise not interacting. Per nurse patient actually ate a bit better yesterday night, about 25% of food. No other changes. - Objective Vital Signs & Weight: Vital Signs (12 hours) Temp Pulse Resp BP BP Pulse Ox 06/24/20 21:08 143/73 H 06/24/20 20:00 98.2 F 70 18 170/79 H 96 Weight Admit Weight 153 lb 6.4 oz Weight 153 lb 6.4 oz I&O: 06/24/20 06/25/20 06/26/20 06:59 06:59 06:59 Intake Total 1070 1873 Output Total 800 1400 Balance 270 473 Result Diagrams: 06/24/20 06:22 06/24/20 06:22 Hospitalist ROS - Review of Systems ROS unobtainable: due to mental status - Medication Medications: Active Medications Generic Name Dose Route Start Last Admin Trade Name Freq PRN Reason Stop Dose Admin Acetaminophen 650 mg 06/11/20 21:53 06/12/20 14:17 Acetaminophen 325 Mg Tab PO 650 mg Q4H PRN Administration Headache/Fever/Mild Pain (1-3) Artificial Tears 1 drop 06/12/20 09:00 06/24/20 10:00 Artificial Tear Laura 15 Ml Bot EA EYE 1 drop DAILY LUCIANO Administration Ascorbic Acid 1,000 mg 06/12/20 09:00 06/24/20 09:43 Ascorbic Acid 500 Mg Chewable Tablet PO 1,000 mg DAILY LUCIANO Administration Cholecalciferol 400 units 06/12/20 09:00 06/24/20 09:42 Cholecalciferol (Vitamin D3) 400 Units Tab PO 400 units DAILY LUCIANO Administration Dexamethasone 4 mg 06/18/20 09:00 06/24/20 09:42 Dexamethasone 4 Mg/Ml Vial SLOW IVP 4 mg DAILY LUCIANO Administration Divalproex Sodium 125 mg 06/12/20 09:00 06/24/20 09:43 Divalproex Sodium 125 Mg Sprinkle Capsule PO 125 mg DAILY LUCIANO Administration Enoxaparin Sodium 30 mg 06/20/20 09:00 06/24/20 09:43 Enoxaparin Sodium 30 Mg/0.3 Ml Syringe SC 30 mg 09 LUCIANO Administration Sodium Acetate 20 meq/ Sodium 1,034.7641 mls @ 83.33 mls/hr 06/24/20 01:15 06/24/20 17:08 Chloride 15 meq/ Potassium IV 07/21/20 01:30 1,034.7641 mls Acetate 10 meq/ Potassium INF LUCIANO Administration Phosphate 15 mmol/ Calcium Gluconate 4.5 meq/ Magnesium Sulfate 5 meq/ Amino Acids/ Dextrose Levetiracetam 750 mg 06/12/20 09:00 06/24/20 20:43 Levetiracetam 500 Mg Tab PO 750 mg BID LUCIANO Administration Sodium Chloride 10 ml 06/12/20 09:00 06/24/20 20:43 Flush - Normal Saline 10 Ml Syringe IVF 10 ml Q12HR LUCIANO Administration Zinc Sulfate 220 mg 06/12/20 09:00 06/24/20 09:46 Zinc Sulfate 220 Mg Cap PO 220 mg DAILY LUCIANO Administration - Exam General Appearance: NAD General - other findings: somnolent ENT: moist mucosa Heart: RRR, no murmur, no gallops, no rubs Respiratory: CTAB, no wheezes, no rales, no ronchi Gastrointestinal: soft, non-tender, non-distended, normal bowel sounds Gastrointestinal - other findings: PEG tube in place, dressing C/D/I Extremities: no edema Psychiatric: somnolent Hosp A/P - Plan DVT proph w/SCDs Acute hypoxic respiratory failure due to COVID 19 pneumonia- now on room air Poor po intake Dehydration with hypernatremia/PRAVEENA Hypophosphatemia Elevated troponin/type II myocardial infarction Metabolic acidosis CKD stage III Abnormal LFTs Seizure disorder Hypomagnesemia Plan: Continue supportive care. PEG tube placed. Will start tube feeds as soon as ok per GI. Patient actually ate a bit last night, so hopefully that will continue to improve and can remove PEG in a few weeks. Will have case mangement look into transfer of patient back to shelter in 1-2 days. 06/24 Continue supportive care. Continue PPN. Continues to have poor appetite. Rechecked inflammatory markers remain elevated, though improving. Sating well on Room air. Our last Covid-19 positive test was from June 13, however patient reportedly had a positive test at the shelter before 06/11 so should be cleared of infectivity by tomorrow. I spoke with patient's niece in law and she confirmed that the family wants a PEG tube placed. Will consult GI. 06/22 Continue PPN, Decadron and other Medications as above. Continue supportive care. Appetite slowly improving. A.m. labs. DC planning once appetite improves. 06/21 Continue PPN. COVID-19 IgG was 7.2. Inflammatory markers slowly improving. Case discussed with palliative care who will attempt to reach family today re garding PEG tube versus NG tube feeding. Continue Decadron and other medications as above. Will discontinue isolation after total of 20 days. 06/20 Case discussed with the family over the phone. Symptom onset was 06/06. Patient has very poor appetite. Family requesting either NG or PEG tube. Will obtain chest x-ray. Will discuss with infectious disease if isolation can be discontinued since patient is more than 2 weeks from the symptom onset. Continue supportive care. Continue PPN. Inflammatory markers slowly improving. Continue dexamethasone, Keppra and other medications as above. Continue Lovenox for DVT prophylaxis. Will check COVID-19 antibodies. A.m. labs 06/19 Family was updated earlier today. Contact number is Raquel at [phone]. Will change IV fluid to PPN due to to malnutrition. Continue Decadron. Continue Depakote, Keppra with other medications as above. Check inflammatory markers in a.m. Continue isolation
[2020-06-25] MEDS: Ascorbic Acid 500 mg Chewable Tablet PO SCH (08:09)
[2020-06-25] MEDS: Divalproex Sodium 125 mg Sprinkle Capsule PO SCH ×2 (08:09→12:17)
[2020-06-25] MEDS: Cholecalciferol (Vitamin D3) 400 UNITS TAB PO SCH (08:09)
[2020-06-25] MEDS: levETIRAcetam 500 MG TAB PO SCH ×2 (08:09→20:15)
[2020-06-25] MEDS: Dexamethasone 4 mg/ml Vial SLOW IVP SCH (08:09)
[2020-06-25] MEDS: Enoxaparin Sodium 30 MG/0.3 ML SYRINGE SC SCH (08:09)
[2020-06-25] MEDS: Artificial Tear Sol 15 ML BOT EA EYE SCH (08:09)
[2020-06-25] MEDS: Zinc Sulfate 220 MG CAP PO SCH (08:10)
[2020-06-25] MEDS ORDERED: AA 4.25 %/CALCIUM/LYTES/D5W 2,000 ML IV SCH (08:15)
--- NOTE | 2020-06-25 10:12 | CON ---
DATE OF CONSULTATION: 06/25/2020 CHIEF COMPLAINT: Inadequate oral intake. HISTORY OF PRESENT ILLNESS: Ms. Thurman is an 84-year-old woman with advanced dementia, who was admitted on 06/11/2020 with COVID pneumonia, respiratory failure, and acute renal failure. She was treated with steroids and given enoxaparin. Her respiratory status has improved and her renal function has improved. She is on room air now with no shortness of breath or tachypnea. The patient is not verbally interactive today. Nursing reports that she refused breakfast and lunch yesterday, but she did eat half of her supper. GI has been consulted for gastrostomy tube placement due to inadequate oral intake. Palliative care also discussed other options with the family, however, they wished to proceed with a feeding tube. PAST MEDICAL HISTORY: 1. Alzheimer dementia. 2. Osteoporosis. 3. Epilepsy. 4. Hypertension. 5. This hospitalization, COVID pneumonia. PAST SURGICAL HISTORY: The patient is unable to contribute to her medical history, so surgical history is not known. She has no surgical scars in her left upper quadrant. FAMILY HISTORY: Not known. SOCIAL HISTORY: No alcohol, tobacco, or drugs. She is a [facility] patient. ALLERGIES: NO KNOWN DRUG ALLERGIES. MEDICATIONS: Currently include; 1. Dexamethasone. 2. Depakote. 3. Enoxaparin. 4. Keppra. 5. Zinc. REVIEW OF SYSTEMS: Unobtainable. PHYSICAL EXAMINATION: VITAL SIGNS: Temperature 98.3, pulse 79, blood pressure 117/72. GENERAL: She is in no acute distress. She is lying in bed, sleeping. She does awaken, but is unable to tell me her name. LUNGS: Clear to auscultation bilaterally. HEART: Regular rate and rhythm. ABDOMEN: Soft, nontender, and nondistended. Bowel sounds are present. EXTREMITIES: No lower extremity edema. LABORATORY DATA: White blood cell count 5.8, hemoglobin 12.9, platelets 298. Creatinine 0.68, CRP 2.05, albumin 3.0. IMPRESSION: 1. Protein-calorie malnutrition with inadequate oral intake. 2. Oropharyngeal dysphagia related to dementia. She has taken some nutrition by mouth, but not meeting her needs. RECOMMENDATIONS: I discussed the risks and benefits of percutaneous endoscopic gastrostomy tube placement in detail with the patient's nephew and his , and wished to proceed with gastrostomy tube placement. She will receive preprocedure antibiotics. Job ID: [id number]
--- NOTE | 2020-06-25 11:05 | OP ---
DATE OF PROCEDURE: 06/25/2020 PROCEDURE PERFORMED: Esophagogastroduodenoscopy with percutaneous endoscopic gastrostomy tube placement. PREOPERATIVE DIAGNOSES: Protein-calorie malnutrition and oropharyngeal dysphagia secondary to dementia. DESCRIPTION OF PROCEDURE: Informed consent was obtained from the patient's nephew. She was sedated with general anesthesia. A bite block was placed and the endoscope was advanced easily to the second portion of the duodenum and retroflexion was performed in the stomach. The esophagus was normal. The stomach was normal including retroflexed views. The pylorus and first and second portions of the duodenum were normal. The stomach was fully insufflated, and the appropriate site was transilluminated and palpated in the left upper quadrant. She received 2 g of cefazolin prior to the procedure. The skin was sterilized with chlorhexidine. The skin was anesthetized with 5 mL of 1% lidocaine. A small skin incision was performed with the scalpel and the catheter was placed directly through the abdominal wall into the stomach under direct visualization in a single attempt easily. The wire was placed through the catheter and grasped with a snare and pulled out through the patient's mouth. The 20-Sudanese gastrostomy tube was then placed by the pull-through technique. The external bumper was placed at 4 cm. Antibiotic ointment was applied. Patient tolerated the procedure well without immediate complications. Second-look endoscopy showed the internal bumper to be in good position. The air was suctioned from the stomach and the procedure was completed. IMPRESSION: 1. Normal esophagogastroduodenoscopy. 2. Successful placement of 20-Sudanese percutaneous endoscopic gastrostomy tube with the external bumper placed at 4 cm. RECOMMENDATIONS: 1. Start feeds in 8 hours. 2. She can still receive oral feedings as she tolerates, starting in 8 hours. Job ID: [id number]
[2020-06-25] MEDS ORDERED: PROPOFOL 200 MG/20 ML VIAL ONE (11:18)
[2020-06-25] MEDS ORDERED: Rocuronium Bromide 10 MG/ML (10ML VIAL) ONE (11:18)
[2020-06-25] MEDS ORDERED: Glycopyrrolate 0.2 MG/ML 5 ML SYRINGE ONE (11:18)
[2020-06-25] MEDS ORDERED: PHENYLEPHRINE-NS 100 MCG/ML 10 ML SYRINGE ONE (11:18)
[2020-06-25] MEDS ORDERED: Esmolol 100 MG/10 ML VIAL ONE (11:18)
[2020-06-25] MEDS ORDERED: Lidocaine 1% PF 5 ML VIAL ONE (11:18)
[2020-06-26 07:15] LABS: #Lymphocytes 1.5 thou/uL (1.20-3.40); #Monocytes 0.9 thou/uL (0.11-0.59); #Neutrophils 6.5 thou/uL (1.40-6.50); %Basophils 0.5 % (0.0-1.0); %Eosinophils 0.2 % (0.0-10.0); %Lymphocytes 17.1 % (21.0-51.0); %Monocytes 9.6 % (0.0-10.0); %Neutrophils 72.6 % (42.0-75.0); Hemoglobin 13.3 g/dL (12.0-16.0); Mean Corpuscular HGB CONC 32.5 g/dL (32.0-36.0); Mean Corpuscular Hemoglobin 30.2 pg (27.0-31.0); Mean Platelet Volume 7.8 fL (7.4-10.4); Platelet Count 344 thou/uL (130-400); RBC Distribution Width 12.8 % (11.5-14.5); Red Blood Cell (RBC) Count 4.41 mill/uL (4.20-5.40); White Blood Cell (WBC) Count 8.9 thou/uL (4.8-10.8)
[2020-06-26 07:30] LABS: Anion Gap 17 mmol/L (10-20); BUN (Urea Nitrogen) 46 mg/dL (9.8-20.1); CRP (Inflammatory) 0.97 mg/dL (= or < 0.5); Calc. Creatinine Clearance 43 mL/min (70-130); Calcium 9.8 mg/dL (7.8-10.44); Carbon Dioxide 21 mmol/L (23-31); Chloride 102 mmol/L (98-107); Glucose 137 mg/dL (83-110); Potassium 4.7 mmol/L (3.5-5.1); Sodium 135 mmol/L (136-145)
[2020-06-26] MEDS: Ascorbic Acid 500 mg Chewable Tablet PO SCH (08:52)
[2020-06-26] MEDS: Zinc Sulfate 220 MG CAP PO SCH (08:52)
[2020-06-26] MEDS: Divalproex Sodium 125 mg Sprinkle Capsule PO SCH (08:52)
[2020-06-26] MEDS: Dexamethasone 4 mg/ml Vial SLOW IVP SCH (08:52)
[2020-06-26] MEDS: Cholecalciferol (Vitamin D3) 400 UNITS TAB PO SCH (08:52)
[2020-06-26] MEDS: levETIRAcetam 500 MG TAB PO SCH (08:52)
[2020-06-26] MEDS: Artificial Tear Sol 15 ML BOT EA EYE SCH (08:54)
[2020-06-26] MEDS: Enoxaparin Sodium 30 MG/0.3 ML SYRINGE SC SCH (09:12)
--- NOTE | 2020-06-26 11:48 | PDOC.HOSPP ---
- Subjective Encounter Date: 06/26/20 Encounter Time: 08:00 Subjective: Patient seen and examined bedside today, no overnight event, - Objective Vital Signs & Weight: Vital Signs (12 hours) Temp Pulse Resp BP BP Pulse Ox 06/26/20 08:00 98 06/26/20 07:20 98.4 F 85 16 135/72 98 06/26/20 04:15 98.5 F 74 16 107/66 99 06/26/20 01:10 98.5 F 85 16 113/66 100 Weight Admit Weight 153 lb 6.4 oz Weight 153 lb 6.4 oz I&O: 06/25/20 06/26/20 06/27/20 06:59 06:59 06:59 Intake Total 1873 660 145 Output Total 1400 Balance 473 660 145 Result Diagrams: 06/26/20 06:55 06/26/20 06:55 Hospitalist ROS - Review of Systems ROS unobtainable: due to mental status - Medication Medications: Active Medications Generic Name Dose Route Start Last Admin Trade Name Freq PRN Reason Stop Dose Admin Acetaminophen 650 mg 06/11/20 21:53 06/12/20 14:17 Acetaminophen 325 Mg Tab PO 650 mg Q4H PRN Administration Headache/Fever/Mild Pain (1-3) Artificial Tears 1 drop 06/12/20 09:00 06/26/20 08:54 Artificial Tear Laura 15 Ml Bot EA EYE 1 drop DAILY LUCIANO Administration Ascorbic Acid 1,000 mg 06/12/20 09:00 06/26/20 08:52 Ascorbic Acid 500 Mg Chewable Tablet PO 1,000 mg DAILY LUCIANO Administration Cholecalciferol 400 units 06/12/20 09:00 06/26/20 08:52 Cholecalciferol (Vitamin D3) 400 Units Tab PO 400 units DAILY LUCIANO Administration Dexamethasone 4 mg 06/18/20 09:00 06/26/20 08:52 Dexamethasone 4 Mg/Ml Vial SLOW IVP 4 mg DAILY LUCIANO Administration Divalproex Sodium 125 mg 06/12/20 09:00 06/26/20 08:52 Divalproex Sodium 125 Mg Sprinkle Capsule PO 125 mg DAILY LUCIANO Administration Enoxaparin Sodium 30 mg 06/20/20 09:00 06/26/20 09:12 Enoxaparin Sodium 30 Mg/0.3 Ml Syringe SC 30 mg 09 LUCIANO Administration Amino Ac/Electrol/Dextrose/Calcium 2,000 mls @ 83.33 mls/hr 06/25/20 08:15 06/25/20 15:15 Clinimix E 4.25%-5% Solution IV 07/21/20 13:30 2,000 mls INF LUCIANO Administration Levetiracetam 750 mg 06/12/20 09:00 06/26/20 08:52 Levetiracetam 500 Mg Tab PO 750 mg BID LUCIANO Administration Sodium Chloride 10 ml 06/12/20 09:00 06/26/20 08:53 Flush - Normal Saline 10 Ml Syringe IVF 10 ml Q12HR LUCIANO Administration Zinc Sulfate 220 mg 06/12/20 09:00 06/26/20 08:52 Zinc Sulfate 220 Mg Cap PO 220 mg DAILY LUCIANO Administration - Exam General Appearance: ill appearing Eye: PERRL, anicteric sclera ENT: normocephalic atraumatic, no oropharyngeal lesions Neck: supple, symmetric, no JVD Heart: RRR, no murmur, no gallops Respiratory: no wheezes, no rales, no ronchi Gastrointestinal: soft, non-tender, non-distended, normal bowel sounds Gastrointestinal - other findings: PEG tube in place Extremities: no clubbing, no edema Skin: normal turgor, no lesions Musculoskeletal: normal tone, normal strength Psychiatric: normal affect Hosp A/P (1) Acute renal failure Status: Acute Qualifiers: Acute renal failure type: unspecified Qualified Code(s): N17.9 - Acute kidney failure, unspecified (2) Acute respiratory failure Code(s): J96.00 - ACUTE RESPIRATORY FAILURE, UNSP W HYPOXIA OR HYPERCAPNIA Status: Acute Qualifiers: Respiratory failure complication: hypoxia Qualified Code(s): J96.01 - Acute respiratory failure with hypoxia (3) Dementia Code(s): F03.90 - UNSPECIFIED DEMENTIA WITHOUT BEHAVIORAL DISTURBANCE Status: Acute Qualifiers: Dementia type: unspecified type (4) Dysphasia Code(s): R47.02 - DYSPHASIA Status: Acute (5) Elevated d-dimer Code(s): R79.89 - OTHER SPECIFIED ABNORMAL FINDINGS OF BLOOD CHEMISTRY Status: Acute (6) Elevated troponin Code(s): R77.8 - OTHER SPECIFIED ABNORMALITIES OF PLASMA PROTEINS Status: Acute (7) Hypernatremia Code(s): E87.0 - HYPEROSMOLALITY AND HYPERNATREMIA Status: Acute (8) Pneumonia due to COVID-19 virus Code(s): U07.1 - COVID-19; J12.89 - OTHER VIRAL PNEUMONIA Status: Acute - Plan old records reviewed/req, certified social workers in health care Overall patient is medically stable for discharge to go to longterm home Continue tube feeding Continue medication as ordered See discharge summary
--- NOTE | 2020-06-26 13:25 | PDOC.DS.DS ---
Provider - Provider Date of Admission: 06/11/20 16:28 Date of Discharge: 06/26/20 Admitting Provider: Jenni Moreno MD Consultations: Gastroentrology Primary Care Physician: NO PCP PROVIDER Course - Hospital Course Hospital Course: patient with severe Alzheimer dementia, no family members or personal from [facility] present. Case of an 84y/o female with a pmhx of epilepsy, htn, osteoporosis, dysphagia and alzheimers demetia who was brought to hospital via ems due to hypoxia. apparently patient was recently diagnosed with covid 19 at her [facility] on 06/06/2020 due to cough. they called ems due to deterioration on her symptoms with an 02 sat of 77% on 2L and with tachypnea. patient was brought to hospital and diagnosed with renal failure, hypernatremia and elevated troponin apart from her dx of covid 19 pneumonia with respiratory failure. hospitalist was called for further evaluation and management. On admission renal ultrasound was unremarkable, chest x-ray was showing infiltration, patient had PEG tube placement this time, while in hospital patient also received parenteral nutrition, patient is cleared for discharge t suni, long-term prognosis poor, I spoke with the patient's family member and updated about current condition, she will resume all her previous medication, she has elevated D-dimer there so we are also providing Lovenox upon discharge, Resuscitation Status: 06/11/20 21:53 Resuscitation Status Routine Resuscitation Status: FULL: Full Resuscitation - Labs Lab Results: 06/26/20 06:55 06/26/20 06:55 Abnormal Lab Results - Last 48 hrs 06/26/20 06:55: Sodium 135 L, Carbon Dioxide 21 L, BUN 46 H, C-Reactive Protein 0.97 H 06/26/20 06:55: Lymphocytes % 17.1 L, Monocytes # 0.9 H 06/26/20 06:55: D-Dimer 3.38 H - Physical Exam Vitals: Vital Signs (12 hours) Temp Pulse Resp BP BP Pulse Ox 06/26/20 12:00 98 06/26/20 08:00 98 06/26/20 07:20 98.4 F 85 16 135/72 98 06/26/20 04:15 98.5 F 74 16 107/66 99 Weight Admit Weight 153 lb 6.4 oz Weight 153 lb 6.4 oz Physical Exam: The patient was seen and examined on the day of discharge. Problem - Problem (1) Acute renal failure Status: Acute Qualifiers: Acute renal failure type: unspecified Qualified Code(s): N17.9 - Acute kidney failure, unspecified (2) Acute respiratory failure Code(s): J96.00 - ACUTE RESPIRATORY FAILURE, UNSP W HYPOXIA OR HYPERCAPNIA Status: Acute Qualifiers: Respiratory failure complication: hypoxia Qualified Code(s): J96.01 - Acute respiratory failure with hypoxia (3) Dementia Code(s): F03.90 - UNSPECIFIED DEMENTIA WITHOUT BEHAVIORAL DISTURBANCE Status: Acute Qualifiers: Dementia type: unspecified type (4) Dysphasia Code(s): R47.02 - DYSPHASIA Status: Acute (5) Elevated d-dimer Code(s): R79.89 - OTHER SPECIFIED ABNORMAL FINDINGS OF BLOOD CHEMISTRY Status: Acute (6) Elevated troponin Code(s): R77.8 - OTHER SPECIFIED ABNORMALITIES OF PLASMA PROTEINS Status: Acute (7) Hypernatremia Code(s): E87.0 - HYPEROSMOLALITY AND HYPERNATREMIA Status: Acute (8) Pneumonia due to COVID-19 virus Code(s): U07.1 - COVID-19; J12.89 - OTHER VIRAL PNEUMONIA Status: Acute Plan - Discharge Medications Prescriptions: Enoxaparin Sodium [Lovenox] 30 mg SC DAILY #30 syringe Ascorbic Acid [Vitamin C] 1,000 mg PO DAILY #30 tab Zinc Sulfate 220 mg PO DAILY #30 cap Home Medications: Medication Instructions Recorded Confirmed Type Dextran 70/Hypromellose [Genteal 1 drop EA EYE DAILY 06/11/20 06/11/20 History Tears 0.1%-0.3% Drop] Divalproex Sodium [Depakote 125 mg PO DAILY 06/11/20 06/11/20 History Sprinkle] Sennosides [Senna] 8.6 mg PO BID 06/11/20 06/11/20 History Sertraline HCl [Zoloft] 25 mg PO DAILY 06/11/20 06/11/20 History diphenhydrAMINE [Benadryl] 50 mg PO Q6H PRN 06/11/20 06/11/20 History levETIRAcetam [Keppra] 750 mg PO BID 06/11/20 06/11/20 History Acetaminophen [Tylenol Extra 500 mg PO Q6HR PRN #0 06/26/20 06/11/20 Rx Strength] Ascorbic Acid [Vitamin C] 1,000 mg PO DAILY #30 tab 06/26/20 Rx Enoxaparin Sodium [Lovenox] 30 mg SC DAILY #30 syringe 06/26/20 Rx Zinc Sulfate 220 mg PO DAILY #30 cap 06/26/20 Rx Allergies: No Known Drug Allergies Allergy (Verified 06/11/20 22:17) PER ER NOTES - Discharge Instructions Discharge Instructions:: Continue tube feeding as per dietitian recommendation Activity:: Activity as Tolerated Nourishment:: Tube Feeding Diet Therapies:: Occupational Therapy, Physical Therapy Equipment/Supplies:: Not Applicable IV Therapy:: Not Applicable - Follow up Plan Referrals: Adama Carlson MD [Active] - PROVIDER,NO PCP [Primary Care Provider] - Disposition: [facility] FACILITY Quality - Care Measures CORE MEASURES:: N/A
--- NOTE | 2020-06-26 15:33 | PRG ---
DATE OF SERVICE: 06/26/2020 REASON FOR CONSULTATION: Inadequate oral intake in light of advanced dementia. SUBJECTIVE: The patient underwent EGD with percutaneous gastrostomy tube placement yesterday with no evidence of perioperative complications. Overnight, there were no additional problems and she was started on tube feeds and was able to tolerate them fairly well with only minimal residuals. Today, she has been able to tolerate her tube feeds without any difficulty. Per nursing staff, there has been no complaints of pain nor bleeding from the PEG tube site. OBJECTIVE: VITAL SIGNS: Temperature 98.4, pulse 85, blood pressure 135/72, respiratory rate 16, and saturating 98% on room air. GENERAL: The patient was lying in bed, in no acute distress. The patient was minimally alert and not oriented at all. CARDIOVASCULAR: Regular rate and rhythm. RESPIRATORY: Clear to auscultation bilaterally. ABDOMEN: Normoactive bowel sounds. Soft, nontender, and nondistended. The percutaneous gastrostomy tube was noted in the left upper quadrant with no evidence of skin erythema or wound breakdown or bleeding. The external bumper was loosened to approximately 1 cm to the skin. EXTREMITIES: No cyanosis, clubbing, or edema. LABORATORY DATA: CBC with a white blood cell count of 8.9, hemoglobin 13.3, hematocrit 41, and platelets 344. Chemistry with a sodium of 135, potassium 4.7, chloride 102, CO2 of 21, BUN 46, creatinine 1.02, and glucose 137. IMAGING DATA: No current GI imaging is available for review. ASSESSMENT AND PLAN: The patient is an 84-year-old female, presenting with moderate protein-calorie malnutrition with inadequate oral intake and oropharyngeal dysphagia secondary to dementia, now status post percutaneous gastrostomy tube placement. Moderate calorie malnutrition/oropharyngeal dysphagia: The patient is presenting with oropharyngeal dysphagia secondary to advancing dementia and subsequently has been unable to tolerate adequate food intake in order to maintain nutrition. Upon conferring with the patient's family, the patient subsequently underwent EGD with gastrostomy tube placement on June 25, 2020, with no perioperative complications. On evaluation of the PEG site today, it appears clean, dry, and intact with no difficulties with initiating tube feeds at this time. RECOMMENDATIONS: 1. We would continue with standard PEG tube care. 2. Pain control per Primary Team. 3. We would continue to use an abdominal binder to prevent the patient from inadvertently removing the PEG tube. 4. If the PEG tube is inadvertently removed, I would recommend urgent evaluation by ER staff and/or CT scan to determine extent of injury and possible General Surgery consult at that time. 5. The patient is cleared for discharge back to rehab/senior living. We will sign off at this time. Please call with any questions. Job ID: [id number]
[2020-06-26 16:05] VITALS: BP 144/84; TEMP 98.1
== END 2020-06-26 17:35 | DRG 177 ==
LOC: OBSVTOIN 16:28 → 2SW 16:28 → T4-A 06-14 13:22
PROVIDERS: ADMIT Internal Medicine; ATTEND Internal Medicine
PROC: 8E0ZXY6 Isolation (ICD-10-PCS; principal; 2020-06-11)
PROC: 0DH63UZ Insertion of Feeding Device into Stomach, Percutaneous Approach (ICD-10-PCS; 2020-06-25)
DX: U07.1 COVID-19 (principal); J96.01 Acute respiratory failure with hypoxia; J12.82 Pneumonia due to coronavirus disease 2019; N17.9 Acute kidney failure, unspecified; Z51.5 Encounter for palliative care; E87.0 Hyperosmolality and hypernatremia; E87.2 Acidosis; E44.0 Moderate protein-calorie malnutrition; G30.9 Alzheimer's disease, unspecified; F02.80 Dementia in other diseases classified elsewhere, unspecified severity, without behavioral disturbance, psychotic disturbance, mood disturbance, and anxiety; G40.909 Epilepsy, unspecified, not intractable, without status epilepticus; E83.42 Hypomagnesemia; E86.0 Dehydration; E83.39 Other disorders of phosphorus metabolism; N18.30 Chronic kidney disease, stage 3 unspecified; I12.9 Hypertensive chronic kidney disease with stage 1 through stage 4 chronic kidney disease, or unspecified chronic kidney disease; Z68.28 Body mass index [BMI] 28.0-28.9, adult; R15.9 Full incontinence of feces; R32 Unspecified urinary incontinence; R13.12 Dysphagia, oropharyngeal phase; M81.0 Age-related osteoporosis without current pathological fracture; R79.89 Other specified abnormal findings of blood chemistry
CPT/HCPCS: 36415; 71045; 76770; 80048; 80053; 82728; 83735; 84100; 85007; 85025; 85027; 85379; 86140; 86769; 87635; J0690; J1100; J1650; J2001; J2704; J3475; J3480; J7030; J7042; U0003

== ENCOUNTER 2020-06-30 19:36 | Inpatient (IN) | payer OTHER ==
[~2020-06-30 19:36] MED LIST: Iopamidol-370 76% 500 ML 1 ML ONE
--- NOTE | 2020-06-30 20:55 | RAD ---
XR Chest 1 View Portable HISTORY: Sepsis COMPARISON: 06/20/2020 FINDINGS: The heart size is at upper limits of normal. There are mild patchy opacities in the lower l ungs bilaterally, right greater than left. No lobar consolidation, pneumothoraces or large effusions are seen. IMPRESSION: Possibility of viral pneumonia should be considered.
[2020-06-30 21:03] LABS: Hemoglobin 15.8 g/dL (12.0-16.0); Mean Corpuscular HGB CONC 33.1 g/dL (32.0-36.0); Mean Corpuscular Hemoglobin 30.5 pg (27.0-31.0); Mean Corpuscular Volume 92.4 fL (78.0-98.0); Mean Platelet Volume 9.9 fL (7.4-10.4); Platelet Count 248 thou/uL (130-400); RBC Distribution Width 13.6 % (11.5-14.5); Red Blood Cell (RBC) Count 5.19 mill/uL (4.20-5.40); White Blood Cell (WBC) Count 11.6 thou/uL (4.8-10.8)
[2020-06-30 21:27] LABS: Band 37 % (5-11); Burr Cells SLIGHT = 2-5 cells (100X) (0-1/hpf); Lymphocytes 6 % (21-51); MDiff Complete? YES; Metamyelocyte 2 % (0-0); Monocytes 5 % (0-10); Neutrophil 50 % (42-75); Platelet Clumps SLIGHT; Platelet Morphology Comment Appears Adequate; Vacuoles SLIGHT
[2020-06-30 21:35] LABS: CKMB 1.1 ng/mL (0-6.6)
[2020-06-30] MEDS ORDERED: Cefepime 2 GM VIAL ONE (21:35)
[2020-06-30 22:33] LABS: Bacteria/HPF Rare-Few HPF (None Seen); Bilirubin Negative (Negative); Blood, Urine Negative (Negative); Clarity Turbid (Clear); Glucose, Urine (Dipstick) Normal (Negative); Ketone, Urine Negative (Negative); Leukocyte 75 Leu/uL (Negative); Nitrite Negative (Negative); Protein, Urine (Dipstick) 20 mg/dL (Neg-Trace); RBC/HPF 0-3 HPF (0-3); Specific Gravity, Urine 1.024 (1.002-1.036); Squamous Epithelial 21-50 HPF (0-3); Urobilinogen Normal mg/dL (Less than 2); pH, Urine 5.5 (5.0-9.0)
[2020-06-30 22:36] LABS: Albumin 2.6 g/dL (3.4-4.8)
[2020-06-30 22:37] LABS: Chloride 96 mmol/L (98-107); Potassium 6.5 mmol/L (3.5-5.1); Sodium 135 mmol/L (136-145)
[2020-06-30 22:38] LABS: Calcium 10.5 mg/dL (7.8-10.44); Glucose 146 mg/dL (83-110)
[2020-06-30 22:39] LABS: Globulin 4.4 g/dL (2.4-3.5)
[2020-06-30] MEDS ORDERED: Vancomycin 1 GM/200 ML BAG ONE (22:39)
[2020-06-30 22:40] LABS: Anion Gap 25 mmol/L (10-20); Bilirubin, Total 1.9 mg/dL (0.2-1.2); Carbon Dioxide 21 mmol/L (23-31)
[2020-06-30 22:41] LABS: Alkaline Phosphatase 114 U/L (40-110)
[2020-06-30 22:42] LABS: BUN (Urea Nitrogen) 72 mg/dL (9.8-20.1); Calc. Creatinine Clearance 0 mL/min (70-130)
[2020-06-30 22:44] LABS: ALT (SGPT) 22 U/L (8-55); AST (SGOT) 17 U/L (5-34)
[2020-06-30] MEDS ORDERED: Fentanyl 250 MCG/5 ML VIAL ONE (22:59)
[2020-06-30] MEDS ORDERED: Phenylephrine 10 MG/ML VIAL ONE (23:00)
[2020-06-30] MEDS ORDERED: PHENYLEPHRINE-NS 100 MCG/ML 10 ML SYRINGE ONE (23:00)
--- NOTE | 2020-06-30 23:35 | PDOC.CONS ---
- Consultation Encounter Date: 06/30/20 Encounter Time: 23:33 CHIEF COMPLAINT: Dislodged gastrostomy tube HISTORY OF PRESENT ILLNESS: 84-year-old female transferred from her [facility] for dislodgment of gastrostomy tube. The patient was recently admitted for Covid pneumonia where she underwent percutaneous gastrostomy on June 25, 2020. Apparently she dislodged her gastrostomy tube yesterday and it was replaced. Further evaluation demonstrated that the gastrostomy tube was in the peritoneal cavity. They had been administering enteral feeds through the gastrostomy after replacement yesterday. Of note, the patient has severe Alzheimer's dementia and is noncommunicative. There is no family or [facility] personnel to better explain the patient's history. What little is known about the patient is taken from the electronic medical record. REVIEW OF SYSTEMS: Unable to obtain PAST MEDICAL HISTORY: After reviewing the patient's medication list: Recent Covid pneumonia Schizoaffective disorder Epilepsy PAST SURGICAL HISTORY: Gastrostomy tube placement FAMILY HISTORY: Unable to obtain SOCIAL HISTORY Unable to obtain ALLERGIES: No known drug allergies PHYSICAL EXAM: Vital Signs: HR 110-160 BP 120/99 General: Disoriented noncommunicative ENT: Sclera anicteric, pupils equal and reactive, mucous membranes dry Neck: No jugular venous distention, trachea midline Cardiovascular: Normal sinus tachycardia with episodes of atrial fibrillation Pulmonary: Coarse bilaterally Abdominal: Soft, modestly distended, diffusely tender Genitourinary: Deferred Rectal: Deferred Integument: No abnormal rashes or lesions Musculoskeletal: No gross deformities LABORATORY: Laboratory analysis reviewed. Demonstrates a mild leukocytosis of 11.6 (8.9 on the 13th). Hemoglobin 15.8 (13.3) hyperkalemia 6.5. Increased creatinine to 3.32 (1.02). Lactic acidosis of 5.8, total bilirubin 1.9. Elevated troponin at 0.290, albumin 2.6, positive leukocyte esterase and white blood cell count and urinalysis, however seems to be a poor specimen IMAGING: Computed tomography abdomen reviewed as well as radiology interpretation. Demonstrates the gastrostomy balloon outside the stomach and in the peritoneal cavity with free air. ASSESSMENT: 84-year-old [facility] resident with intra-abdominal sepsis due to dislodged gastrostomy tube and continue tube feeding, as well as lactic acidosis, hyperkalemia, acute kidney injury, and malnutrition. PLAN: Admit to hospitalist/critical care Intra-abdominal sepsis: We will plan for exploratory laparotomy with repair of gastrostomy, replacement of gastrostomy, washout, and drain placement. No family members available for consent; however, her [facility] documentation demonstrates that she is a full code as she was a during her last admission. Emergent consent obtained after consultation with the emergency room department staff and anesthesiology. Given her atrial fibrillation and rapid ventricular response with hyperkalemia, will defer surgery for resuscitative efforts by ED / Critical care. Plan to operate when blood pressure improved, reasonable rate control achieved and potassium below 5. Hyperkalemia: Emergency department to manage with insulin, close, bicarb, and calcium Acute renal injury: Normal renal function after recent discharge. Likely due to intra-abdominal sepsis and volume contraction. Per hospitalist management. Recommend nephrology consultation. Lactic acidosis: Due to intra-abdominal sepsis complicated by acute renal failure. Recommend critical care admission and trending of lactic acid measurement. Malnutrition: Albumin 2.6. We will plan to replace gastrostomy tube to initiate enteral feeds at the time of surgery.
[2020-06-30] MEDS ORDERED: Calcium Chloride 1 GM/10 ML Abboject SYRINGE ONE (23:39)
[2020-06-30] MEDS ORDERED: Dextrose 50% Abboject 50 ML SYRINGE ONE (23:39)
[2020-06-30] MEDS ORDERED: Sodium Bicarb 50 MEQ/50 ML Abboject 8.4% SYRINGE ONE ×2 (23:39→23:55)
[2020-06-30] MEDS ORDERED: Insulin Regular 300 UNITS/3 ML VIAL ONE (23:39)
[2020-07-01] MEDS ORDERED: Piperacillin/Tazobactam 3.375 GM VIAL ONE (00:34)
[2020-07-01 00:38] LABS: Lactic Acid 4.8 mmol/L (0.5-2.2)
[2020-07-01] MEDS ORDERED: DOPamine 400 MG/D5W 250 ML 250 ML ONE (01:20)
[2020-07-01 01:27] LABS: Troponin I 0.227 ng/mL (< 0.028)
[2020-07-01 01:37] LABS: SARS-CoV-2 NAA Rapid Test DETECTED (NotDetected)
[2020-07-01] MEDS ORDERED: Vancomycin HCl 500 MG in Sodium Chloride 0.9% 100 ML IVPB SCH (02:15)
[2020-07-01] MEDS ORDERED: Sodium Chloride 0.9% 1,000 ML IV SCH (02:15)
[2020-07-01] MEDS ORDERED: methylPREDNISolone Sod Succ/PF 125 MG/2 ML VIAL ONE (02:19)
[2020-07-01 02:32] LABS: Anion Gap 22 mmol/L (10-20); BUN (Urea Nitrogen) 69 mg/dL (9.8-20.1); Calc. Creatinine Clearance 0 mL/min (70-130); Calcium 10.3 mg/dL (7.8-10.44); Carbon Dioxide 24 mmol/L (23-31); Chloride 100 mmol/L (98-107); Glucose 301 mg/dL (83-110); Potassium 5.1 mmol/L (3.5-5.1); Sodium 141 mmol/L (136-145)
[2020-07-01] MEDS ORDERED: Digoxin 0.5 MG/2 ML AMP ONE ×2 (02:41→03:38)
[2020-07-01] MEDS ORDERED: Activated Charcoal/Sorbitol 25 GM/120 ML TUBE ONE (02:41)
[2020-07-01] MEDS ORDERED: Phenylephrine 40 MG in Sodium Chloride 0.9% 250 ML 250 ML IVPB SCH (02:45)
--- NOTE | 2020-07-01 03:01 | PDOC.HHP ---
Hospitalist HPI - History of Present Illness Altered mental state, leaking PEG tube History of Present Illness: This is a 84-year-old male patient with a history of Alzheimer's dementia, epilepsy and dysphagia with PEG tube in place who was brought in from her [facility] on account of leakage around the PEG tube and altered mental status. She has advanced dementia and is unable to participate in her e valuation. Of note patient was in [place] 2 days ago on account of having pulled out her PEG tube and this was replaced. However a day ago is she was noted to have pulled out her tube again and apparently there was attempted manual placement back at the [facility]. Placement was however not done rights with which you ended up in the peritoneal cavity and subsequent feeding. She tested positive for Covid today and also had a positive test on 06/12/2020. Patient comes in today with sepsis with presenting blood pressure 75/62 pulse 113, respiratory rate 30 and saturating 94 on room air. Labs showed leukocytosis of 11.6, sodium 135, potassium 6.5 creatinine 3.32 from a baseline of 1.02 4 days ago. Lactate was 5.8, troponin was 0.09. Chest x-ray showed mild patchy opacities in the lower lobes bilaterally right greater than left concerning for viral pneumonia. Covid test was positive. She was administered sodium bicarb, Zosyn and Vanco, 3 L normal saline and calcium chloride. She received insulin and dextrose for hyperkalemia. Surgical history reviewed for surgery however given her state, decided to postpone surgery. Hospitalist team was consulted to admit. 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 Eye: PERRL, anicteric sclera Heart: RRR, no murmur Heart - other findings: Tachycardic Respiratory: no wheezes, no rales, no ronchi Gastrointestinal: soft, non-tender, non-distended Gastrointestinal - other findings: PEG tube in place but dislodged. Extremities: no cyanosis, no clubbing, no edema Neurological - other findings: Unable to assess. Psychiatric - other findings: Patient not oriented to person place or time Hospitalist Results - Labs Result Diagrams: 07/01/20 03:31 07/01/20 03:31 Lab results: WBC 11.6 thou/uL (4.8-10.8) H 06/30/20 20:48 Hgb 15.8 g/dL (12.0-16.0) 06/30/20 20:48 Hct 47.9 % (36.0-47.0) H 06/30/20 20:48 MCV 92.4 fL (78.0-98.0) 06/30/20 20:48 Plt Count 248 thou/uL (130-400) 06/30/20 20:48 Band Neuts % (Manual) 37 % (5-11) H 06/30/20 20:48 Sodium 141 mmol/L (136-145) 07/01/20 00:02 Potassium 5.1 mmol/L (3.5-5.1) 07/01/20 00:02 Chloride 100 mmol/L (98-107) 07/01/20 00:02 Carbon Dioxide 24 mmol/L (23-31) 07/01/20 00:02 BUN 69 mg/dL (9.8-20.1) H 07/01/20 00:02 Creatinine 3.20 mg/dL (0.6-1.1) H 07/01/20 00:02 Glucose 301 mg/dL (83-110) H 07/01/20 00:02 Lactic Acid 4.8 mmol/L (0.5-2.2) H* 07/01/20 00:02 Calcium 10.3 mg/dL (7.8-10.44) 07/01/20 00:02 Total Bilirubin 1.9 mg/dL (0.2-1.2) H 06/30/20 22:15 AST 17 U/L (5-34) 06/30/20 22:15 ALT 22 U/L (8-55) 06/30/20 22:15 Alkaline Phosphatase 114 U/L (40-110) H 06/30/20 22:15 CK-MB (CK-2) 1.1 ng/mL (0-6.6) 06/30/20 20:48 Troponin I 0.227 ng/mL (< 0.028) H 07/01/20 00:46 Serum Total Protein 7.0 g/dL (6.0-8.3) 06/30/20 22:15 Albumin 2.6 g/dL (3.4-4.8) L 06/30/20 22:15 Urine Ketones Negative mg/dL (Negative) 06/30/20 22:03 Urine Blood Negative (Negative) 06/30/20 22:03 Urine Nitrite Negative (Negative) 06/30/20 22:03 Ur Leukocyte Esterase 75 Hiren/uL (Negative) A 06/30/20 22:03 Urine RBC 0-3 HPF (0-3) 06/30/20 22:03 Urine WBC 7-10 HPF (0-3) A 06/30/20 22:03 Ur Squamous Epith Cells 21-50 HPF (0-3) A 06/30/20 22:03 Urine Bacteria Rare-Few HPF (None Seen) 06/30/20 22:03 Hospitalist H&P A/P - Plan Plan: This is an 84-year-old male patient history of dementia, dysphagia with PEG tube in place presenting on account of severe sepsis with severe sepsis secondary to peritonitis due to wrong PEG tube placement. She also has Covid pneumonia Severe sepsis Source peritoneal Patient came severely hypotensive however improved with fluid rehydration. Lactate elevatedwe will trend Received 30 mils per KG boluswe will continue 25 mils per hour. Continue Vanco and Zosyn Close monitoring. Acute encephalopathy Likely due to sepsis in the setting of dementia We will treat as above Monitor closely. Peritonitis Secondary to prolonged PEG tube placement Current antibiotic Continue monitor. Appreciate surgery input. Pneumonia due to Covid Covid testing positive on the second time. Chest x-ray suggestive of infiltrations. Start zinc and vitamin C Expect to be in place. Dislodged PEG tube Surgery followingfall replacement in OR. Hyperkalemia Potassium 6.5 at presentation Improved with dextrose and insulin Nephrology consult in a.m. PRAVEENA Creatinine increased from 1.02 at baseline to 3.32 Likely prerenal receiving IV hydration Nephrology consult in a.m. Elevated troponin Likely demand/PRAVEENA We will trend Monitor on telemetry Hypercalcemia Calcium slightly elevated at 10.5 Improved with hydration Continue monitor Mild hyponatremia Monitor BMP Dementia Dysphagia Poor clinical status. Given patient's dementia and worsening peritonitis and sepsis prognosis generally poor Consult palliative care for goals of care discussion. Discussion with nephew and his wifedecided to make her DNR and comfort measures CODE STATUSDNR DVT prophylaxisLovenox
[2020-07-01 04:02] LABS: Anion Gap 20 mmol/L (10-20); BUN (Urea Nitrogen) 69 mg/dL (9.8-20.1); Calc. Creatinine Clearance 16 mL/min (70-130); Calcium 10.5 mg/dL (7.8-10.44); Carbon Dioxide 24 mmol/L (23-31); Chloride 101 mmol/L (98-107); Glucose 142 mg/dL (83-110); Potassium 5.1 mmol/L (3.5-5.1); Sodium 140 mmol/L (136-145)
[2020-07-01 04:07] LABS: Troponin I 0.278 ng/mL (< 0.028)
[2020-07-01] MEDS ORDERED: Norepinephrine 4 MG/4 ML VIAL ONE (04:37)
[2020-07-01] MEDS ORDERED: Fentanyl 100 MCG/2 ML VIAL ONE ×3 (04:38→06:55)
[2020-07-01] MEDS ORDERED: Ketamine 50 MG/ML (10ML VIAL) ONE ×2 (04:38→06:55)
[2020-07-01 04:46] LABS: Band 42 % (5-11); Hemoglobin 12.2 g/dL (12.0-16.0); Lymphocytes 10 % (21-51); MDiff Complete? YES; Mean Corpuscular HGB CONC 32.7 g/dL (32.0-36.0); Mean Corpuscular Hemoglobin 30.7 pg (27.0-31.0); Mean Corpuscular Volume 93.9 fL (78.0-98.0); Mean Platelet Volume 9.4 fL (7.4-10.4); Monocytes 4 % (0-10); Neutrophil 44 % (42-75); Nucleated RBC 1 % (0); Platelet Count 286 thou/uL (130-400); RBC Distribution Width 13.5 % (11.5-14.5); Red Blood Cell (RBC) Count 3.97 mill/uL (4.20-5.40); White Blood Cell (WBC) Count 13.5 thou/uL (4.8-10.8)
[2020-07-01] MEDS ORDERED: PHENYLEPHRINE-NS 100 MCG/ML 10 ML SYRINGE ONE (04:59)
[2020-07-01] MEDS ORDERED: Lidocaine 1% PF 5 ML VIAL ONE (04:59)
[2020-07-01] MEDS ORDERED: Rocuronium Bromide 10 MG/ML (10ML VIAL) ONE (04:59)
[2020-07-01] MEDS ORDERED: PROPOFOL 200 MG/20 ML VIAL ONE (04:59)
[2020-07-01] MEDS ORDERED: Albumin 5% 0 ML ONE (05:26)
[2020-07-01] MEDS ORDERED: Promethazine HCl 25 MG/ML VIAL IM PRN (06:16)
[2020-07-01] MEDS ORDERED: Promethazine HCl 25 MG/ML VIAL SLOW IVP PRN (06:16)
[2020-07-01] MEDS ORDERED: Ondansetron HCl/PF 4 MG/2 ML Vial IVP PRN (06:16)
[2020-07-01] MEDS ORDERED: Norepinephrine 8 MG/0.9% NS 250 ML IVPB SCH (06:45)
[2020-07-01] MEDS ORDERED: Phenylephrine 10 MG/ML VIAL ONE (06:56)
[2020-07-01] MEDS ORDERED: Albumin 5% 500 ML ONE (06:56)
--- NOTE | 2020-07-01 07:52 | PDOC.OP ---
Operative Note - Operative Note Operative Note: DATE OF SURGERY: July 01, 2020 SURGEON: Kaz Resendez MD PREOPERATIVE DIAGNOSIS: Dislodged gastrostomy Intra-abdominal sepsis Atrial fibrillation with rapid ventricular response Acute renal failure Lactic acidosis POSTOPERATIVE DIAGNOSIS: Dislodged gastrostomy Intra-abdominal sepsis Atrial fibrillation with rapid ventricular response Acute renal failure Lactic acidosis PROCEDURE: Exploratory laparotomy Partial gastrectomy Washout and drain placement Eric gastrostomy INDICATIONS: 84-year-old [facility] resident who dislodged there gastrostomy tube and continue to receive enteral feedings into her peritoneal cavity. She presented to the emergency department with intra-abdominal sepsis, hypotension, acute renal failure, atrial fibrillation with rapid ventricular response, and profound lactic acidosis. Aggressive resuscitation was undertaken with volume resuscitation, intermittent pressors, and digoxin to control her atrial fibrillation. She also had hyperkalemia that required aggressive management preoperatively. Once her vital signs stabilized and her hyperkalemia was improved, she was appropriate for operative therapy. PROCEDURE IN DETAIL: The patient was brought to the operating room and positioned supine on the operating room table. After induction of general, endotracheal anesthesia, the patient was prepared and draped in the usual fashion. Prior to beginning the procedure, a complete timeout was performed with all members of the operative team being present and in agreement. An upper midline celiotomy was created in the usual fashion. Upon entry into the peritoneal cavity, gross contamination was evident due to tube feeds. The resultant gastrotomy was located and quickly closed with suture to avoid further contamination. The previous feeding gastrostomy was located along the greater curve of the stomach right adjacent to the gastrocolic ligament. The gastrocolic ligament was taken down with electrocautery. A partial gastrectomy was performed using sequential firings of a green staple load. The abdominal cavity was copiously irrigated with 4 L of warm sterile saline. An appropriate area was located in the body of the stomach for replacement of her feeding jejunostomy to allow for enteral feeds. A pursestring suture was placed and a gastrotomy created. An adjacent place in the abdominal wall was entered and a feeding tube introduced and placed through the gastrotomy. The pursestring suture was closed and tied. Eric sutures were placed around the feeding gastrostomy between the stomach wall and anterior abdominal wall. The gastrostomy was sutured into place using 20 nylon sutures. The abdominal cavity was again irrigated and 2 19 Tristanian round drains were placed in the pericolic gutters and brought out the lower quadrants. The fascia was closed with 2-0 PDS suture in a running fashion; 1 beginning cranially, the other caudally, and being tied in the middle. The subcutaneous tissues were irrigated and loosely closed with a skin stapling device and covered with a lydia dressing. At conclusion of the case, all sponge and estimate counts were correct. ESTIMATED BLOOD LOSS: Minimal COMPLICATIONS: None INTRAOPERATIVE BLOOD TRANSFUSIONS: None GRAFTS / IMPLANTS: Feeding gastrostomy 19 Tristanian round drain right paracolic gutter 19 Tristanian drain left paracolic gutter SPECIMENS: None DISPOSITION: The patient was transported to the postoperative recovery unit in stable conditions to be admitted to the intensive care unit when criteria met.
--- NOTE | 2020-07-01 08:04 | CT ---
CT ABDOMEN AND PELVIS WITH IV CONTRAST: Date: 06/30/2020 HISTORY: Sepsis. Dementia. PEG tube recently replaced 2 days after the patient had pulled it out. The patient is hypothermic and tachycardic. FINDINGS: There are no previous exams for comparison. There are small bilateral pleural effusions with adjacent atelectatic changes, right greater than lef t. A small hiatal hernia is present with fluid in the stomach and distal esophagus. The distended bul b of the PEG tube is outside the confines of the stomach, lying inferior to it, with free air and jatinder e fluid in the abdomen. A small amount of free fluid is also seen in the pelvis. No calcified gallstones are seen. There is a 12.0 mm cyst in the lateral segment of the left lobe of the liver. The spleen, pancreas, adrenal glands, and kidneys are unremarkable. The small bowel loops are not abnormally dilated. There is colonic diverticulosis. Calcified fibroids are present in the uterus. There are vascular calcifications without evidence of aneurysmal dilatati on of the abdominal aorta. A small, fat-containing umbilical hernia is present. There are degenerativ e changes in the spine. IMPRESSION: 1. Malpositioning of the PEG tube with bulb outside the confines of the stomach with free air in the abdomen and free fluid in the abdomen and pelvis. 2. Small bilateral pleural effusions and adjacent atelectatic changes, right larger than left. 3. Small hiatal hernia. 4. Colonic diverticulosis. 5. Fibroid uterus. Discussed over the telephone with ER physician, Dr. Artemio Gleason, at 2201 hours. CODE CR. POS: OFF
[2020-07-01 08:05] LABS: Lactic Acid 3.4 mmol/L (0.5-2.2)
--- NOTE | 2020-07-01 08:43 | RAD ---
Chest one view HISTORY: Intubated. COMPARISON: 06/30/2020. FINDINGS: Cardiac silhouette is magnified by projection. Pulmonary vasculature are within normal limi ts. Mediastinum is midline. Tip of the endotracheal catheter projects over the thoracic inlet. Nasogastri c tube descends to the stomach. Pleural and parenchymal opacity at the right base now obscures the right hemidiaphragm. Infiltrate wi thin the right mid lung zone is unchanged. Left hemidiaphragm partially obscured by increasing rectum opacity at the left posterior lung base. No evidence of pneumothorax. IMPRESSION : Worsening bibasilar atelectasis/infiltrate with small right pleural effusion. Endotracheal catheter and nasogastric tube are in good position.
[2020-07-01] MEDS ORDERED: Sodium Chloride 0.9% (PF) 10 ML VIAL FS PRN (08:45)
[2020-07-01] MEDS ORDERED: Vancomycin 1 GM in Premix Bag 1 BAG IVPB SCH ×2 (09:00→16:00)
[2020-07-01] MEDS: Pantoprazole 40 MG VIAL IVP SCH (10:01)
[2020-07-01] MEDS: MEROPENEM 1 GM/50 ML 1 GM in Premix Bag 1 BAG IVPB SCH ×2 (10:02→23:04)
[2020-07-01] MEDS: Heparin 5,000 UNITS/ML VIAL SC SCH ×3 (10:03→23:04)
--- NOTE | 2020-07-01 10:16 | CON ---
DATE OF CONSULTATION: HISTORY OF PRESENT ILLNESS: Christina Thurman is an 84-year-old female with severe dementia, who was admitted to the hospital after recent discharge with a dislodged PEG tube. There are no family members, we have tried to contact a number, unable to get any response. PAST MEDICAL HISTORY: 1. Dementia. 2. Epilepsy. 3. Dysphagia. 4. Schizophrenia. 5. Bipolar. 6. Recent saravia positive pneumonia. PREVIOUS SURGERIES: PEG placement. MEDICATIONS: Home medicine includes: 1. Keppra 750 twice a day. 2. Zoloft 25. 3. Lovenox 30. 4. . She is now on: 1. Keppra. 2. Maxipime. ALLERGIES: NO ALLERGIES. PHYSICAL EXAMINATION: VITAL SIGNS: She has temperature 98, pulse 70, respiratory rate 18, and saturations 100% on 40% FiO2, blood pressure 100/84. CHEST: No wheezing. No crackles. CARDIAC: Normal S1 and S2. No gallops. ABDOMEN: No masses. LABORATORY DATA: White count 30,000, Hemoglobin and hematocrit 12 and 37, and platelet count 286. Creatinine 3 and BUN 69 . X-ray shows a small pleural effusion. Her saravia positive serology was still positive. ASSESSMENT: 1. Respiratory failure status post dislodgement of percutaneous endoscopic gastrostomy. 2. Severe dementia. 3. Saravia positive pneumonia with small right pleural effusion. 4. Renal failure. 5. Status post replacement of gastrostomy with peritonitis. PLAN: Family has made a DNR. She has evidence of peritonitis. We will continue antibiotics, supportive care. Consider slow weaning. This is a 45-minute critical care time. Job ID: [id number]
[2020-07-01] MEDS: Sodium Bicarbonate 50 MEQ in Dextrose 5 %-0.45 % NaCl 1,000 ML IV SCH ×2 (10:53→20:11)
[2020-07-01 17:17] LABS: Lactic Acid 3.7 mmol/L (0.5-2.2)
[2020-07-01 17:21] LABS: Anion Gap 16 mmol/L (10-20); BUN (Urea Nitrogen) 61 mg/dL (9.8-20.1); Calc. Creatinine Clearance 15 mL/min (70-130); Carbon Dioxide 25 mmol/L (23-31); Chloride 107 mmol/L (98-107); Glucose 194 mg/dL (83-110); Magnesium 2.7 mg/dL (1.6-2.6); Potassium 4.8 mmol/L (3.5-5.1); Sodium 143 mmol/L (136-145)
--- NOTE | 2020-07-01 18:31 | CON ---
DATE OF CONSULTATION: 07/01/2020 CONSULTING PHYSICIAN: Agustín Martines MD REASON FOR CONSULTATION: Acute kidney injury. REASON FOR ADMISSION: Altered mentation. HISTORY OF PRESENT ILLNESS: This is an 84-year-old female with history of dementia, dysphagia, who came to the hospital with altered mentation. She is intubated, not able to give any history. She was tested positive for COVID also, test positive on 06/12/2020. The patient dislodged PEG tube and was having evaluation and found to have creatinine of 3.05. Peak creatinine was 3.32, baseline is around 0.7 to 1.02. PAST MEDICAL HISTORY: Positive for dementia, epilepsy, dysphagia. PAST SURGICAL HISTORY: PEG tube placement. HOME MEDICATIONS: List reviewed. ALLERGIES: NO KNOWN DRUG ALLERGIES. SOCIAL HISTORY: No smoking, alcohol, or illicit drug abuse. FAMILY HISTORY: No history of kidney disease. REVIEW OF SYSTEMS: Could not be obtained. PHYSICAL EXAMINATION: GENERAL: This is an elderly female, intubated. VITAL SIGNS: Temperature 98.5, pulse 89, respiratory rate 18, and blood pressure . HEENT: Intubated. CV: S1 and S2. RESPIRATORY: Clear. GASTROINTESTINAL: Abdomen is soft. MUSCULOSKELETAL: No edema. DERMATOLOGIC: No skin rash. NEUROLOGICAL: Intubated. LABORATORY DATA: Potassium is 4.8, BUN is 61, and creatinine is 2.8. ASSESSMENT AND PLAN: 1. Acute kidney injury on chronic kidney disease, stage 2. Renal function is slightly better. Creatinine down to 2.8. Continue hydration. 2. Azotemia. 3. Acute hypoxic respiratory failure. 4. Leukocytosis. 5. COVID-19 infection. Labs are getting better, but prognosis is poor. Continue supportive care. We will continue to monitor. Avoid nephrotoxins. We will follow. Job ID: [id number]
[2020-07-01] MEDS ORDERED: Cefepime 2 GM in Sodium Chloride 0.9% 100 ML IVPB SCH (21:00)
[2020-07-02] MEDS: Sodium Bicarbonate 50 MEQ in Dextrose 5 %-0.45 % NaCl 1,000 ML IV SCH (03:53)
[2020-07-02] MEDS ORDERED: Vancomycin 1 GM in Premix Bag 1 BAG IVPB SCH (04:00)
[2020-07-02 04:40] LABS: Lactic Acid 3.5 mmol/L (0.5-2.2)
[2020-07-02 04:48] LABS: ALT (SGPT) 21 U/L (8-55); AST (SGOT) 28 U/L (5-34); Albumin 2.3 g/dL (3.4-4.8); Alkaline Phosphatase 96 U/L (40-110); Anion Gap 18 mmol/L (10-20); BUN (Urea Nitrogen) 62 mg/dL (9.8-20.1); Bilirubin, Total 0.8 mg/dL (0.2-1.2); Calc. Creatinine Clearance 17 mL/min (70-130); Calcium 8.9 mg/dL (7.8-10.44); Carbon Dioxide 26 mmol/L (23-31); Chloride 106 mmol/L (98-107); Globulin 3.1 g/dL (2.4-3.5); Glucose 164 mg/dL (83-110); Magnesium 2.7 mg/dL (1.6-2.6); Potassium 4.3 mmol/L (3.5-5.1); Protein, Total 5.4 g/dL (6.0-8.3); Sodium 146 mmol/L (136-145)
[2020-07-02 05:06] LABS: Band 35 % (5-11); Hemoglobin 9.1 g/dL (12.0-16.0); Lymphocytes 7 % (21-51); MDiff Complete? YES; Mean Corpuscular HGB CONC 32.3 g/dL (32.0-36.0); Mean Corpuscular Hemoglobin 30.4 pg (27.0-31.0); Mean Platelet Volume 9.4 fL (7.4-10.4); Monocytes 2 % (0-10); Myelocyte 1 % (0-0); Neutrophil 55 % (42-75); Platelet Count 206 thou/uL (130-400); RBC Distribution Width 13.3 % (11.5-14.5); Red Blood Cell (RBC) Count 2.99 mill/uL (4.20-5.40); White Blood Cell (WBC) Count 12.5 thou/uL (4.8-10.8)
[2020-07-02] MEDS: Heparin 5,000 UNITS/ML VIAL SC SCH ×3 (08:21→20:39)
[2020-07-02] MEDS: Pantoprazole 40 MG VIAL IVP SCH (08:23)
[2020-07-02] MEDS: GenTeal Tears Severe Dry Eye GEL 10 G EA EYE SCH (08:25)
[2020-07-02] MEDS ORDERED: FLU VACC QS2020-21(65YR UP)/PF 240 MCG/0.7 ML SYRINGE IM ONE (09:00)
[2020-07-02] MEDS: Dextrose 5 %-0.45 % NaCl 1,000 ML IV SCH ×2 (09:25→19:22)
[2020-07-02] MEDS: MEROPENEM 1 GM/50 ML 1 GM in Premix Bag 1 BAG IVPB SCH ×2 (09:26→21:04)
--- NOTE | 2020-07-02 09:26 | PRG ---
DATE OF SERVICE: 07/02/2020 SUBJECTIVE: Christina Thurman remains in the ICU, unresponsive, no sedation. OBJECTIVE: VITAL SIGNS: Pulse 86, blood pressure 130/41, respirations 14, sats 100% on 40% at a rate of 10. She is not assisted in the vent much. CHEST: No wheezing, no crackles. CARDIAC: Normal S1, S2. ABDOMEN: No masses. LABORATORY DATA: White count 12. H and H 9 and 28, platelet count 206. Creatinine is 2.5, BUN 62. ASSESSMENT: 1. Renal failure. 2. Respiratory failure. 3. Abdominal sepsis. 4. Previous Coronavirus infection. PLAN: She is clearly not weanable. Apparently from what I am understanding, she may be a DNR. The family is going to make a decision today. She is already on broad-spectrum antibiotics, adjusted for renal failure. I am not so sure if she is a candidate for any kind of dialysis. Bicarb is 26, discontinue bicarb in the IV fluid. We are going to start normal saline at low dose. One-half hour of critical time. Job ID: [id number]
[2020-07-02 14:55] LABS: Vancomycin, Random 11.7 ug/mL (See Comment)
[2020-07-02] MEDS ORDERED: Vancomycin HCl 750 MG in Sodium Chloride 0.9% 250 ML 250 ML IVPB SCH (15:15)
[2020-07-02 16:09] LABS: Actual Bicarbonate (HCO3a) 22.2 mEq/L (22-28); Analyzer IN Cardio OR; Base Excess (BEa) -2.4 mEq/L (-2.0 to +3.0); CO2 Tension 37.5 mmHg (35.0-45.0); Carboxyhemoglobin (COHb) 0.3 gm% (0.0-3.0); O2 Tension (PaO2), arterial 375.6 mmHg (> 60.0); Potassium - ABG Lab 4.94 mmol/L (3.70-5.30); pH, Arterial 7.39 (7.35-7.45)
[2020-07-02 16:10] LABS: Puncture Site Arterial Line
--- NOTE | 2020-07-02 20:09 | PDOC.HOSPP ---
- Subjective Encounter Date: 07/02/20 Encounter Time: 12:30 non-verbal Subjective: Patient seen and examined for sepsis. Off pressors. On mechanical ventilation. No overnight issues. - Objective Vital Signs & Weight: Vital Signs (12 hours) Temp Pulse Resp BP 07/02/20 20:00 96.8 F L 07/02/20 18:08 74 07/02/20 17:55 18 07/02/20 16:00 18 07/02/20 14:08 85 140/64 07/02/20 14:00 18 07/02/20 12:30 18 07/02/20 10:45 77 134/58 L 07/02/20 10:00 13 Weight Admit Weight 156 lb Weight 156 lb 3.2 oz Most Recent Monitor Data Heart Rate from ECG 65 NIBP 100/40 NIBP BP-Mean 60 Respiration from ECG 19 SpO2 100 I&O: 07/01/20 07/02/20 07/03/20 06:59 06:59 06:59 Intake Total 1452 425 Output Total 9665 1505 Balance -233 -1080 Result Diagrams: 07/02/20 03:50 07/02/20 03:50 Additional Labs: Accuchecks 07/01/20 05:45 POC Glucose 126 H Abnormal Lab Results - Last 48 hrs 06/30/20 20:48: Lactic Acid 5.8 H* 06/30/20 20:48: WBC 11.6 H, Hct 47.9 H, Band Neuts % (Manual) 37 H, Lymphocytes % (Manual) 6 L 06/30/20 20:48: Troponin I 0.290 H 06/30/20 22:03: Urine Clarity Turbid A, Ur Leukocyte Esterase 75 A, Urine WBC 7- 10 A, Ur Squamous Epith Cells 21-50 A 06/30/20 22:15: Sodium 135 L, Potassium 6.5 H, Chloride 96 L, Carbon Dioxide 21 L, Anion Gap 25 H, BUN 72 H, Creatinine 3.32 H, Calcium 10.5 H, Total Bilirubin 1.9 H, Alkaline Phosphatase 114 H, Albumin 2.6 L, Globulin 4.4 H, Albumin/Globulin Ratio 0.6 L 06/30/20 23:15: SARS-CoV-2 Rap RNA(RT-PCR) DETECTED A* 07/01/20 00:02: Lactic Acid 4.8 H* 07/01/20 00:02: Anion Gap 22 H, BUN 69 H, Creatinine 3.20 H 07/01/20 00:46: Troponin I 0.227 H 07/01/20 03:31: Troponin I 0.278 H 07/01/20 03:31: BUN 69 H, Creatinine 3.05 H, Calcium 10.5 H 07/01/20 03:31: WBC 13.5 H, RBC 3.97 L, Band Neuts % (Manual) 42 H, Lymphocytes % (Manual) 10 L, Nucleated RBCs # (Man) 1 H 07/01/20 03:31: Lactic Acid 5.8 H* 07/01/20 05:44: ABG pO2 375.6 H, ABG O2 Sat (Measured) 99.8 H, ABG O2 Content 16 .4 L, ABG Base Excess -2.4 L, ABG Hematocrit 32.0 L, ABG Hemoglobin 11.0 L, ABG Oxyhemoglobin 99.5 H, ABG Methemoglobin 0.00 L, Chloride 108 H 07/01/20 07:38: Lactic Acid 3.4 H 07/01/20 16:52: BUN 61 H, Creatinine 2.89 H, Magnesium 2.7 H 07/01/20 16:52: Lactic Acid 3.7 H 07/02/20 03:50: Lactic Acid 3.5 H 07/02/20 03:50: Sodium 146 H, BUN 62 H, Creatinine 2.57 H, Magnesium 2.7 H, Serum Total Protein 5.4 L, Albumin 2.3 L, Albumin/Globulin Ratio 0.7 L 07/02/20 03:50: WBC 12.5 H, RBC 2.99 L, Hgb 9.1 L, Hct 28.1 L, Band Neuts % (Manual) 35 H, Lymphocytes % (Manual) 7 L, Myelocytes % 1 H Microbiology - Entire Visit 06/30/20 22:03 Urine Straight Catheter Urine Culture - Final NO GROWTH AT 36 HOURS 06/30/20 20:48 Venous blood - Right Hand Blood Culture - Preliminary NO GROWTH AT 48 HOURS 06/30/20 20:48 Venous blood - Right Hand Blood Culture - Preliminary Streptococcus agalactiae Gp. B Radiology Reviewed by me: Yes (Chest x-rayquestionable bilateral infiltrate) EKG Reviewed by me: Yes (Sinus rhythm on telemetry) Hospitalist ROS - Review of Systems ROS unobtainable: due to mental status - Medication Medications: Active Medications Generic Name Dose Route Start Last Admin Trade Name Rasta PRN Reason Stop Dose Admin Heparin Sodium (Porcine) 5,000 units 07/01/20 09:00 07/02/20 15:18 Heparin 5,000 Units/Ml Vial SC 5,000 units TID LUCIANO Administration Hypromellose 1 g 07/02/20 09:00 07/02/20 08:25 Genteal Tears Severe Dry Eye Gel 10 G EA EYE 1 each DAILY LUCIANO Administration Levetiracetam 750 mg/ Sodium 107.5 mls @ 215 mls/hr 07/01/20 09:00 07/02/20 09:06 Chloride IVPB 107.5 mls BID LUCIANO Administration Meropenem 1 gm/ Device 50 mls @ 100 mls/hr 07/01/20 10:00 07/02/20 09:26 IVPB 50 mls 1000,2200 LUCIANO Administration Dextrose/Sodium Chloride 1,000 mls @ 75 mls/hr 07/02/20 09:00 07/02/20 19:22 D5 1/2 Ns IV 1,000 mls .[id number] LUCIANO Administration Pantoprazole Sodium 40 mg 07/01/20 09:00 07/02/20 08:23 Pantoprazole 40 Mg Vial IVP 40 mg DAILY LUCIANO Administration - Exam General Appearance: ill appearing General - other findings: On mechanical ventilation Heart: RRR, no gallops, no rubs, normal peripheral pulses Respiratory: no wheezes, rales, rhonchi Respiratory - other findings: Intubated Gastrointestinal: soft, no guarding, no rigidity Gastrointestinal - other findings: Abdominal drain present Extremities: no cyanosis, no clubbing, no edema Neurological - other findings: Neuro/psychexam limited due to current mentation Hosp A/P - Plan DVT proph w/SCDs Severe sepsis/septic shock due to dislodged gastrostomy/peritonitisPOA Acute hypoxic resp failure - on mech Vent Acute kidney injuryPOA Metabolic acidosislactic acidosis Type II myocardial infarctionPOA 1 of 2 blood culture positive for group B strep Recent COVID-19 infection/pneumonia Hyperkalemia/hyponatremia on admission Abnormal LFTsresolved SVT versus atrial fibrillation with rapid ventricular response in the emergency roomresolved Dementia History of seizure disorder Plan: Patient is off pressors. Continue vent support. Continue IV hydration. Continue IV PPI. A.m. labs. We will recheck lactic acid in a.m. Patient remains in sinus rhythm. Monitor vancomycin level. Continue other medications as above. Case discussed extensively with CARLTON in the conference room with palliative care. DNR verified.
[2020-07-03 04:18] LABS: Lactic Acid 1.8 mmol/L (0.5-2.2)
[2020-07-03 04:22] LABS: ALT (SGPT) 21 U/L (8-55); AST (SGOT) 32 U/L (5-34); Albumin 2.4 g/dL (3.4-4.8); Alkaline Phosphatase 114 U/L (40-110); Anion Gap 13 mmol/L (10-20); BUN (Urea Nitrogen) 45 mg/dL (9.8-20.1); Bilirubin, Total 0.5 mg/dL (0.2-1.2); Calc. Creatinine Clearance 34 mL/min (70-130); Calcium 8.9 mg/dL (7.8-10.44); Carbon Dioxide 27 mmol/L (23-31); Chloride 110 mmol/L (98-107); Globulin 3.2 g/dL (2.4-3.5); Glucose 101 mg/dL (83-110); Potassium 3.8 mmol/L (3.5-5.1); Protein, Total 5.6 g/dL (6.0-8.3); Sodium 146 mmol/L (136-145)
[2020-07-03 05:04] LABS: Band 11 % (5-11); Lymphocytes 15 % (21-51); MDiff Complete? YES; Mean Corpuscular HGB CONC 30.3 g/dL (32.0-36.0); Mean Corpuscular Hemoglobin 28.9 pg (27.0-31.0); Mean Corpuscular Volume 95.1 fL (78.0-98.0); Mean Platelet Volume 9.2 fL (7.4-10.4); Metamyelocyte 1 % (0-0); Monocytes 5 % (0-10); Myelocyte 3 % (0-0); Neutrophil 64 % (42-75); Nucleated RBC 1 % (0); Platelet Count 195 thou/uL (130-400); RBC Distribution Width 13.4 % (11.5-14.5); Reactive Lymphocytes 1 % (0-10); Red Blood Cell (RBC) Count 3.12 mill/uL (4.20-5.40)
--- NOTE | 2020-07-03 06:11 | PRG ---
DATE OF SERVICE: 07/02/2020 SUBJECTIVE: The patient is intubated. OBJECTIVE: GENERAL: Elderly female, who is intubated. VITAL SIGNS: Temperature 97.6, pulse 85, respiratory rate 18, and blood pressure 147/56. HEENT: Intubated. CVS: S1 and S2 heard. RESPIRATORY: Coarse. GASTROINTESTINAL: Abdomen is soft. MUSCULOSKELETAL: No edema. NEUROLOGICAL: Intubated. LABORATORY DATA: Hemoglobin 9.1. Potassium 4.3, BUN is 62, and creatinine is 2.57. ASSESSMENT AND PLAN: 1. Acute kidney injury on chronic kidney disease, stage 2. Renal function is slightly better with improvement in urine output. much better, creatinine down to 2.5 from 3.3. 2. Hypernatremia, mild. 3. Leukocytosis. 4. COVID-19 infection. 5. Acute hypoxic respiratory failure. 6. Azotemia. 7. Hypoalbuminemia. 8. Anemia. Rule out any bleed. She does have a steep drop in her hemoglobin, rule out any bleeding. Renal function thorpe, stable and better. Continue hydration. We will follow. No acute indication for dialysis. Job ID: [id number]
[2020-07-03] MEDS ORDERED: Sodium Chloride 0.9% 10 ML ONE (07:58)
[2020-07-03] MEDS: GenTeal Tears Severe Dry Eye GEL 10 G EA EYE SCH (09:15)
--- NOTE | 2020-07-03 09:21 | PRG ---
DATE OF SERVICE: SUBJECTIVE: Christina Thurman this morning remains on the vent at a rate of 8. She is breathing 14 times a minute. OBJECTIVE: VITAL SIGNS: Temperature 97, pulse 74, blood pressure 150/74, sats FiO2. CHEST: No rhonchi. CARDIAC: Normal S1 and S2. No gallops. ABDOMEN: No masses. LABORATORY DATA: White count 13,000, pO2 . Creatinine 1.4, BUN 47. ASSESSMENT: 1. Respiratory failure. 2. Renal failure. 3. Abdominal sepsis. PLAN: Family is to decide about comfort care, extubation tomorrow. Nutrition as per Surgery. We will follow. One-half hour of critical time. Job ID: [id number]
[2020-07-03] MEDS: Pantoprazole 40 MG VIAL IVP SCH (09:24)
[2020-07-03] MEDS: MEROPENEM 1 GM/50 ML 1 GM in Premix Bag 1 BAG IVPB SCH ×2 (10:42→22:09)
[2020-07-03] MEDS: Heparin 5,000 UNITS/ML VIAL SC SCH ×2 (10:44→21:10)
--- NOTE | 2020-07-03 11:47 | PRG ---
DATE OF SERVICE: 07/03/2020 SUBJECTIVE: The patient is seen and examined at bedside and intubated. OBJECTIVE: GENERAL: Elderly female, intubated. VITAL SIGNS: Temperature 97.7, pulse 95, respiratory rate 18, blood pressure 127/72. LABORATORY DATA: Potassium 3.8, sodium 146, BUN is 45, and creatinine is 1.47. ASSESSMENT AND PLAN: 1. Acute kidney injury on chronic kidney disease stage 2 with improvement in labs. 2. Hypernatremia with hyperchloremia. I will change it to D5 water. 3. Leukocytosis. 4. COVID-19 infection. 5. Acute hypoxic respiratory failure. 6. Azotemia. 7. Hypoalbuminemia. 8. We will continue to follow. Job ID: [id number]
[2020-07-03] MEDS: Dextrose 5% in Water 1,000 ML IV SCH ×2 (11:50→17:33)
[2020-07-03] MEDS ORDERED: Scopolamine 1.5 mg/72 hour Patch TOP SCH (14:00)
--- NOTE | 2020-07-03 14:49 | PRG ---
DATE OF SERVICE: 07/03/2020 SUBJECTIVE: Ms. Thurman is an 84-year-old woman. She is postoperative day #3, status post exploratory laparotomy, abdominal washout for chemical peritonitis. The patient remains on mechanical ventilator support. She is on no vasopressor or inotropic support at the time. Urinary output is appropriate for the patient's age and weight. OBJECTIVE: VITAL SIGNS: Include blood pressure 138/46; pulse 78; respiratory rate is 18; maximum temperature in last 24 hours is 98.4 degrees Fahrenheit; and oxygen saturation 100% on FiO2 of 35%, on mechanical ventilator support. HEART: Reveals regular rate. LUNGS: Scattered rhonchi. ABDOMEN: Soft and moderately distended. SKIN: Incision is intact, clean, and dry. Two Khadar-Navarro drains remain in place, left had returned 25 mL and right 95 mL of serosanguinous fluid in the last 24 hours. Orogastric tube returned 100 mL of bilious effluent over the last 24 hours. LABORATORY FINDINGS: Today includes CBC with 13,000 white blood cells, hemoglobin and hematocrit of 9.0 and 29.7 respectively, and platelet count 195,000. Metabolic profile; sodium 146, potassium 3.8, chloride is 110, bicarb is 27, BUN 45, creatinine is 1.47, and glucose 101. IMPRESSION: 1. Postop day #3, status post exploratory laparotomy and abdominal washout. 2. Resolving acute kidney injury. 3. Acute hyponatremia. PLAN: Trophic enteral nutritional supplementation will be initiated. Otherwise, no further surgical indication at this time. Critical care management is deferred to Pulmonary/Critical Care Service. Job ID: [id number]
[2020-07-03 15:36] LABS: Vancomycin, Random 11.7 ug/mL (See Comment)
[2020-07-03] MEDS ORDERED: Vancomycin 1 GM in Premix Bag 1 BAG IVPB SCH (16:00)
--- NOTE | 2020-07-03 18:57 | PDOC.HOSPP ---
- Subjective Encounter Date: 07/03/20 Encounter Time: 12:00 non-verbal Subjective: Patient seen and examined for peritonitis/respiratory failure. On mechanical ventilation. No new overnight events. - Objective Vital Signs & Weight: Vital Signs (12 hours) Temp Pulse Resp BP Pulse Ox 07/03/20 18:36 76 155/72 H 07/03/20 18:00 14 07/03/20 16:00 98.0 F 12 07/03/20 14:39 76 135/52 L 07/03/20 14:26 71 135/52 L 07/03/20 14:00 14 07/03/20 13:12 86 07/03/20 13:00 98.0 F 07/03/20 12:00 97.9 F 16 07/03/20 11:00 98.0 F 07/03/20 10:52 78 138/46 L 07/03/20 10:00 98.4 F 16 07/03/20 09:00 97.4 F L 07/03/20 08:00 97.7 F 18 100 07/03/20 07:51 74 159/74 H 07/03/20 07:00 98.4 F Weight Admit Weight 152 lb 1.903 oz Weight 173 lb 11.588 oz Most Recent Monitor Data Heart Rate from ECG 72 NIBP 155/72 NIBP BP-Mean 99 Respiration from ECG 19 SpO2 100 I&O: 07/02/20 07/03/20 07/04/20 06:59 06:59 06:59 Intake Total 1452 1325 570 Output Total 3975 8770 [id number] [facility] -[phone] Result Diagrams: 07/03/20 03:46 07/03/20 03:46 EKG Reviewed by me: Yes (Sinus rhythm on telemetry) Hospitalist ROS - Review of Systems ROS unobtainable: due to mental status - Medication Medications: Active Medications Generic Name Dose Route Start Last Admin Trade Name Freq PRN Reason Stop Dose Admin Hypromellose 1 g 07/02/20 09:00 07/03/20 09:15 Genteal Tears Severe Dry Eye Gel 10 G EA EYE 1 each DAILY LUCIANO Administration Levetiracetam 750 mg/ Sodium 107.5 mls @ 215 mls/hr 07/01/20 09:00 07/03/20 09:15 Chloride IVPB 107.5 mls BID LUCIANO Administration Meropenem 1 gm/ Device 50 mls @ 100 mls/hr 07/01/20 10:00 07/03/20 10:42 IVPB 50 mls 1000,2200 LUCIANO Administration Dextrose/Water 1,000 mls @ 75 mls/hr 07/03/20 09:15 07/03/20 17:33 D5w IV 1,000 mls .[id number] LUCIANO Administration Pantoprazole Sodium 40 mg 07/01/20 09:00 07/03/20 09:24 Pantoprazole 40 Mg Vial IVP 40 mg DAILY LUCIANO Administration Scopolamine 3 mg 07/03/20 14:00 07/03/20 16:17 Scopolamine 1.5 Mg/72 Hour Patch TOP 3 mg Q3D LUCIANO Administration - Exam General Appearance: ill appearing General - other findings: On mechanical ventilation Heart: RRR, no gallops Respiratory: no wheezes, no rales, rhonchi Gastrointestinal: soft, no guarding, no rigidity Extremities: no cyanosis Neurological - other findings: Neuro/psychcannot assess due to current mentation Hosp A/P - Plan DVT proph w/heparin Severe sepsis/septic shock due to dislodged gastrostomy/peritonitis Acute hypoxic resp failure - on mech Vent Acute kidney injury Metabolic acidosislactic acidosis Type II myocardial infarction 1 of 2 blood culture positive for group B strep Recent COVID-19 infection/pneumonia Hyperkalemia/hyponatremia on admission Abnormal LFTsresolved SVT versus atrial fibrillation with rapid ventricular response in the emergency roomresolved Dementia History of seizure disorder Plan: Bandemia and renal function improving. Continue mechanical ventilation. We will continue IV fluids. Continue current antibiotics. Enteral nutrition supplementation will be initiated today per general surgery. Continue other medications as above. A.m. labs 07/02 Patient is off pressors. Continue vent support. Continue IV hydration. Continue IV PPI. A.m. labs. We will recheck lactic acid in a.m. Patient remains in sinus rhythm. Monitor vancomycin level. Continue other medications as above. Case discussed extensively with CARLTON in the conference room with palliative care. DNR verified.
[2020-07-04 05:08] LABS: ALT (SGPT) 23 U/L (8-55); AST (SGOT) 32 U/L (5-34); Albumin 2.2 g/dL (3.4-4.8); Alkaline Phosphatase 100 U/L (40-110); Anion Gap 10 mmol/L (10-20); BUN (Urea Nitrogen) 25 mg/dL (9.8-20.1); Bilirubin, Total 0.5 mg/dL (0.2-1.2); Calc. Creatinine Clearance 61 mL/min (70-130); Calcium 8.1 mg/dL (7.8-10.44); Carbon Dioxide 27 mmol/L (23-31); Chloride 104 mmol/L (98-107); Globulin 2.9 g/dL (2.4-3.5); Glucose 103 mg/dL (83-110); Potassium 3.5 mmol/L (3.5-5.1); Protein, Total 5.1 g/dL (6.0-8.3); Sodium 137 mmol/L (136-145)
[2020-07-04 06:40] LABS: Band 10 % (5-11); Eosinophils 2 % (0-10); Hemoglobin 9.1 g/dL (12.0-16.0); Lymphocytes 16 % (21-51); MDiff Complete? YES; Mean Corpuscular HGB CONC 31.6 g/dL (32.0-36.0); Mean Corpuscular Hemoglobin 29.7 pg (27.0-31.0); Mean Platelet Volume 9.1 fL (7.4-10.4); Monocytes 2 % (0-10); Myelocyte 2 % (0-0); Neutrophil 68 % (42-75); Platelet Count 188 thou/uL (130-400); RBC Distribution Width 13.5 % (11.5-14.5); Red Blood Cell (RBC) Count 3.05 mill/uL (4.20-5.40); White Blood Cell (WBC) Count 12.1 thou/uL (4.8-10.8)
--- NOTE | 2020-07-04 09:30 | PRG ---
DATE OF SERVICE: 07/04/2020 SUBJECTIVE: Christina Thurman is an 84-year-old female, remains intubated in the vent, still encephalopathic, status post laparoscopy for peritonitis. OBJECTIVE: VITAL SIGNS: Temperature 99, blood pressure 114/56, and saturations 100%. Event rate is eight. She is moving like 14 times a minute. CHEST: Rhonchi. CARDIAC: Normal S1 and S2. No gallops. ABDOMEN: No masses. ASSESSMENT: 1. Respiratory failure. 2. Presumed sepsis, Streptococcus, though she is sensitive to the present antibiotics. PLAN: Family is to make a decision today regarding extubation and comfort care. I agree. TIME SPENT: One-half hour of critical care time. Job ID: [id number]
[2020-07-04] MEDS: Pantoprazole 40 MG VIAL IVP SCH (10:10)
[2020-07-04] MEDS: MEROPENEM 1 GM/50 ML 1 GM in Premix Bag 1 BAG IVPB SCH ×2 (10:10→21:54)
[2020-07-04] MEDS: GenTeal Tears Severe Dry Eye GEL 10 G EA EYE SCH (10:11)
[2020-07-04] MEDS: Heparin 5,000 UNITS/ML VIAL SC SCH ×2 (10:11→21:05)
[2020-07-04] MEDS: Dextrose 5% in Water 1,000 ML IV SCH (10:11)
[2020-07-04] MEDS: Acetaminophen 500 MG TAB PO SCH ×3 (10:42→21:32)
--- NOTE | 2020-07-04 12:00 | PRG ---
DATE OF SERVICE: 07/04/2020 SUBJECTIVE: The patient is seen at the bedside and intubated. OBJECTIVE: General: This is an elderly female, who is intubated. Vital Signs: Temperature 98.1. Heart Rate 73. Respiratory rate 25. Blood pressure 91/47. HEENT: Intubated. Neck: Supple. Cardiovascular: S1, S2 heard. Respiratory: Clear. Gastrointestinal: Abdomen is soft. Musculoskeletal: No edema. Dermatologic: No skin rash. Neurologic: Intubated. Psychiatric: Mood and affect normal. LABORATORY DATA: Potassium 3.5, BUN is 25, creatinine is 0.8. ASSESSMENT AND PLAN: 1. Acute kidney injury on chronic kidney disease stage 3. Labs are much better. 2. Hyponatremia with hyperchloremia. 3. Leukocytosis. 4. COVID-19 infection. 5. Acute hypoxic respiratory failure. 6. Hypoalbuminemia. Labs are much better. Avoid nephrotoxins. I will sign off. Please call back with any questions. Job ID: [id number]
--- NOTE | 2020-07-04 14:05 | PRG ---
DATE OF SERVICE: 07/04/2020 SUBJECTIVE: Ms. Thurman is an 84-year-old woman, underwent exploratory laparotomy, abdominal washout for a failed percutaneous endoscopic gastrostomy tube placement with chemical peritonitis from infusing tube feeds. The patient remains on mechanical ventilator support and is tolerating ventilator wean. She is on no vasopressor or inotropic support. Urinary output is adequate for the patient's age and weight. She is tolerating tube feeds at 10 mL/h via the newly placed gastrostomy tube. Khadar-Navarro drains returning only moderate amount of serous fluid over the last 24 hours. OBJECTIVE: VITAL SIGNS: This morning include blood pressure 101/51, pulse is 70, respiratory rate is 18, maximum temperature in the last 24 hours is 99.1 degrees Fahrenheit, oxygen saturation is 100% on FiO2 of 35% on mechanical ventilator support. HEART: Reveals regular rate and rhythm. LUNGS: Clear to auscultation bilaterally. ABDOMEN: Soft and nondistended. Incision is intact, clean, dry. Both Khadar-Navarro drains returning moderate amount of serous fluid bilaterally. Bowel sounds are present in all 4 quadrants. Incision otherwise remains intact, clean, dry. LABORATORY FINDINGS: Today include a CBC with 12,100 white blood cells, hemoglobin and hematocrit remained stable at 9.1 and 28.6 respectively. Platelet count is 188,000. Metabolic profile; sodium 137, potassium 3.5, chloride is 104, bicarb is 27, BUN is 25, creatinine is 0.82, which is normal compared to high creatinine of 3.32 on 06/30/2020. Glucose today is 103. IMPRESSIONS: 1. Postoperative day #3, status post exploratory laparotomy, abdominal washout, and repair of previous percutaneous endoscopic gastrostomy tube site and replacement of open gastrostomy tube. 2. Resolved acute kidney injury. 3. Resolving acute respiratory failure. PLAN: 1. Continue enteral nutritional supplementation at trophic rate until there is return of bowel function. 2. The primary service is contemplating extubating the patient today with possible palliative care measures. 3. The Khadar-Navarro drains were removed without incident. No further surgical indication for this patient at this time. Job ID: [id number]
[2020-07-04] MEDS ORDERED: Morphine 4 MG/ML VIAL SLOW IVP PRN (15:06)
[2020-07-04] MEDS ORDERED: Lorazepam 2 MG/ML VIAL SLOW IVP PRN ×2 (15:08→15:09)
[2020-07-04] MEDS ORDERED: Hyoscyamine Sulfate SL 0.125 mg Tablet SL PRN (15:09)
[2020-07-04] MEDS ORDERED: Morphine 4 MG/ML VIAL ONE (15:11)
[2020-07-04] MEDS ORDERED: Lorazepam 2 MG/ML VIAL ONE (15:11)
[2020-07-04 17:37] LABS: Vancomycin, Random 12.6 ug/mL (See Comment)
[2020-07-04] MEDS ORDERED: Vancomycin HCl 1.25 GM in Sodium Chloride 0.9% 250 ML 250 ML IVPB SCH (22:00)
--- NOTE | 2020-07-04 22:24 | PDOC.HOSPP ---
- Subjective Encounter Date: 07/04/20 Encounter Time: 12:30 Subjective: Patient seen and examined for respiratory failure/peritonitis. Remains on mechanical ventilation. No new overnight events - Objective Vital Signs & Weight: Vital Signs (12 hours) Temp Pulse Resp BP BP Pulse Ox 07/04/20 19:42 97.4 F L 81 16 135/63 93 L 07/04/20 16:00 99 F 100 07/04/20 15:30 100 07/04/20 14:00 17 07/04/20 12:00 97.4 F L 17 07/04/20 10:52 70 91/47 L Weight Admit Weight 152 lb 1.903 oz Weight 2.61 oz Most Recent Monitor Data Heart Rate from ECG 83 NIBP 90/46 NIBP BP-Mean 60 Respiration from ECG 18 SpO2 100 I&O: 07/03/20 07/04/20 07/05/20 06:59 06:59 06:59 Intake Total 1325 1770 930 Output Total 2520 2250 890 Balance -1195 -480 40 Result Diagrams: 07/04/20 03:40 07/04/20 03:40 Additional Labs: Accuchecks 07/04/20 16:25 POC Glucose 130 H Abnormal Lab Results - Last 48 hrs 07/03/20 03:46: Sodium 146 H, Chloride 110 H, BUN 45 H, Creatinine 1.47 H, Alkaline Phosphatase 114 H, Serum Total Protein 5.6 L, Albumin 2.4 L, Albumin/Globulin Ratio 0.8 L 07/03/20 03:46: WBC 13.0 H, RBC 3.12 L, Hgb 9.0 L, Hct 29.7 L, MCHC 30.3 L, Lymphocytes % (Manual) 15 L, Myelocytes % 3 H, Nucleated RBCs # (Man) 1 H 07/04/20 03:40: BUN 25 H, Serum Total Protein 5.1 L, Albumin 2.2 L, Albumin/Globulin Ratio 0.8 L 07/04/20 03:40: WBC 12.1 H, RBC 3.05 L, Hgb 9.1 L, Hct 28.6 L, MCHC 31.6 L, Lymphocytes % (Manual) 16 L, Myelocytes % 2 H Microbiology - Entire Visit 06/30/20 20:48 Venous blood - Right Hand Blood Culture - Final Streptococcus agalactiae Gp. B 06/30/20 22:03 Urine Straight Catheter Urine Culture - Final NO GROWTH AT 36 HOURS 06/30/20 20:48 Venous blood - Right Hand Blood Culture - Preliminary NO GROWTH AT 48 HOURS EKG Reviewed by me: Yes (Sinus rhythm on telemetry) Hospitalist ROS - Review of Systems ROS unobtainable: due to mental status - Medication Medications: Active Medications Generic Name Dose Route Start Last Admin Trade Name Freq PRN Reason Stop Dose Admin Acetaminophen 1,000 mg 07/04/20 10:00 07/04/20 21:32 Acetaminophen 500 Mg Tab PO Not Given 0400,1000,1600,2200 LUCIANO Heparin Sodium (Porcine) 5,000 units 07/03/20 21:00 07/04/20 21:05 Heparin 5,000 Units/Ml Vial SC 5,000 units BID LUCIANO Administration Hypromellose 1 g 07/02/20 09:00 07/04/20 10:11 Genteal Tears Severe Dry Eye Gel 10 G EA EYE 1 each DAILY LUCIANO Administration Levetiracetam 750 mg/ Sodium 107.5 mls @ 215 mls/hr 07/01/20 09:00 07/04/20 21:05 Chloride IVPB 107.5 mls BID LUCIANO Administration Meropenem 1 gm/ Device 50 mls @ 100 mls/hr 07/01/20 10:00 07/04/20 21:54 IVPB 50 mls 1000,2200 LUCIANO Administration Dextrose/Water 1,000 mls @ 75 mls/hr 07/03/20 09:15 07/04/20 10:11 D5w IV 1,000 mls .[id number] LUCIANO Administration Vancomycin HCl 1.25 gm/ Sodium 250 mls @ 166.667 mls/hr 07/04/20 22:00 07/04/20 21:55 Chloride IVPB 07/04/20 23:59 250 mls NOW LUCIANO Administration Pantoprazole Sodium 40 mg 07/01/20 09:00 07/04/20 10:10 Pantoprazole 40 Mg Vial IVP 40 mg DAILY LUCIANO Administration Scopolamine 3 mg 07/03/20 14:00 07/03/20 16:17 Scopolamine 1.5 Mg/72 Hour Patch TOP 3 mg Q3D LUCIANO Administration - Exam General Appearance: ill appearing General - other findings: On mechanical ventilation Heart: RRR, no gallops Respiratory: no wheezes, no rales, rhonchi Gastrointestinal: soft, no guarding Extremities: no cyanosis Neurological - other findings: Neuro/psychunable to assess due to Mechanical ventilation Hosp A/P - Plan DVT proph w/SCDs Severe sepsis/septic shock due to dislodged gastrostomy/peritonitis Acute hypoxic resp failure - on mech Vent Acute kidney injury Metabolic acidosislactic acidosis Type II myocardial infarction 1 of 2 blood culture positive for group B strep Recent COVID-19 infection/pneumonia Hyperkalemia/hyponatremia on admission Abnormal LFTsresolved SVT versus atrial fibrillation with rapid ventricular response in the emergency roomresolved Dementia History of seizure disorder Plan: Patient will be extubated later today. Bandemia is resolved. Renal function normalized. Continue IV fluids. Continue Keppra. Patient is off pressor. Will discontinue vancomycin. Continue meropenem. Continue heparin for DVT prophylaxis. Continue GI prophylaxis. Continue other medications as above. Palate if care input appreciated. 07/03 Bandemia and renal function improving. Continue mechanical ventilation. We will continue IV fluids. Continue current antibiotics. Enteral nutrition supplementation will be initiated today per general surgery. Continue other medications as above. A.m. labs 07/02 Patient is off pressors. Continue vent support. Continue IV hydration. Continue IV PPI. A.m. labs. We will recheck lactic acid in a.m. Patient remains in sinus rhythm. Monitor vancomycin level. Continue other medications as above. Case discussed extensively with CARLTON in the conference room with palliative care. DNR verified.
[2020-07-05] MEDS: Morphine 4 MG/ML VIAL SLOW IVP PRN ×2 (00:05→04:25)
[2020-07-05] MEDS: Dextrose 5% in Water 1,000 ML IV SCH ×2 (00:09→18:19)
[2020-07-05] MEDS: Acetaminophen 500 MG TAB PO SCH ×4 (04:25→21:05)
[2020-07-05 05:25] LABS: Phosphorus 2.3 mg/dL (2.3-4.7)
[2020-07-05 05:31] LABS: ALT (SGPT) 25 U/L (8-55); AST (SGOT) 29 U/L (5-34); Albumin 2.2 g/dL (3.4-4.8); Alkaline Phosphatase 111 U/L (40-110); Anion Gap 12 mmol/L (10-20); BUN (Urea Nitrogen) 18 mg/dL (9.8-20.1); Bilirubin, Total 0.5 mg/dL (0.2-1.2); Calc. Creatinine Clearance 71 mL/min (70-130); Carbon Dioxide 26 mmol/L (23-31); Chloride 104 mmol/L (98-107); Globulin 3.2 g/dL (2.4-3.5); Glucose 108 mg/dL (83-110); Magnesium 1.8 mg/dL (1.6-2.6); Potassium 3.5 mmol/L (3.5-5.1); Protein, Total 5.4 g/dL (5.8-8.1); Sodium 138 mmol/L (136-145)
[2020-07-05 05:49] LABS: Band 1 % (5-11); Hemoglobin 9.5 g/dL (12.0-16.0); Hypochromia SLIGHT = 6-15 cells (100X) (0-5/hpf); Lymphocytes 26 % (21-51); MDiff Complete? YES; Mean Corpuscular HGB CONC 31.8 g/dL (32.0-36.0); Mean Corpuscular Hemoglobin 29.9 pg (27.0-31.0); Mean Corpuscular Volume 93.8 fL (78.0-98.0); Mean Platelet Volume 8.8 fL (7.4-10.4); Monocytes 6 % (0-10); Neutrophil 67 % (42-75); Platelet Count 202 thou/uL (130-400); Platelet Morphology Comment Appears Adequate; RBC Distribution Width 13.5 % (11.5-14.5); Red Blood Cell (RBC) Count 3.19 mill/uL (4.20-5.40); White Blood Cell (WBC) Count 14.3 thou/uL (4.8-10.8)
[2020-07-05] MEDS: MEROPENEM 1 GM/50 ML 1 GM in Premix Bag 1 BAG IVPB SCH ×2 (09:16→21:05)
[2020-07-05] MEDS: Pantoprazole 40 MG VIAL IVP SCH (09:16)
[2020-07-05] MEDS: Heparin 5,000 UNITS/ML VIAL SC SCH ×2 (09:16→19:58)
[2020-07-05] MEDS: GenTeal Tears Severe Dry Eye GEL 10 G EA EYE SCH (09:17)
[2020-07-05 10:08] VITALS: BMI 28.6
--- NOTE | 2020-07-05 14:28 | PRG ---
DATE OF SERVICE: 07/05/2020 The patient was seen this morning on morning rounds with Dr. Akhil Ellison. SUBJECTIVE: Ms. Thurman is an 84-year-old female, underwent ex lap, abdominal washout for failed percutaneous endoscopic gastrostomy tube placement with peritonitis and septicemia. The patient has subsequently been extubated. Renal function has improved. Urine output is improving. Palliative Care has been on the case and discussing with the family goals of care, but currently continuing with treatment. We are consultants for the General Surgery aspect of this condition. The patient remains on meropenem. She has remained hemodynamically stable. Her tube feeds were stopped overnight; however, we are going to continue these as there was concern that there was pus; however, I believe that this is just tube feed as she has no other indications of pus and the site looks well on our visit today. OBJECTIVE DATA: VITAL SIGNS: Temperature is 97.8, blood pressure 101/63, heart rate is 78, breathing 14 times a minute, 96% on 3 L of oxygen nasal cannula. GENERAL: A thin, chronically ill, elderly female. HEENT: Normocephalic, atraumatic. RESPIRATORY: Equal rise and fall. No distress. CARDIOVASCULAR: Radial pulses are noted. ABDOMEN: She has a midline incision. The dressing is dry, clean. She also has a gastrostomy tube. She has no signs of peritonitis. Soft abdomen. No guarding, rigidity, or grimace with palpation. She has no discharge around the tube. There are tube feeds noted in the tube itself. Her drains were removed yesterday. NEURO: The patient is withdrawn, dementia. SKIN: Dry, warm. LABORATORY DATA: From today, white blood cell count of 14.3, platelets are 202, hemoglobin and hematocrit 9.5 and 29.9 respectively. Sodium is 138, potassium is 3.5, chloride is 104, CO2 is 26, BUN is 18, creatinine 0.68, glucose is 108, calcium is 8.0, magnesium is 1.8, bilirubin 0.5. AST and ALT 29 and 25 respectively. Phos is 2.3. ASSESSMENT AND PLAN: 1. Postop day #4, status post ex lap for abdominal washout, repair of percutaneous gastric tube site, and replacement with open gastrostomy tube. 2. Acute kidney injury, resolved. 3. Acute respiratory failure, resolving. 4. Septic shock, which is resolving. 5. Post-COVID pneumonia. PLAN: 1. We will continue supportive care. 2. Start tube feeds. 3. Did report bowel movements x2 as of today and the last review of the chart. We can increase her tube feeds slightly given that she has return of bowel function. 4. Palliative Care is following. Follow their recommendations. 5. Continue all other supportive care according to Internal Medicine's recommendations. We will continue to follow along with the surgical aspect and the abdominal wound as needed. Please contact our team with any questions. 6. There is no family at the bedside to update. Job ID: [id number]
--- NOTE | 2020-07-05 18:20 | PDOC.HOSPP ---
- Subjective Encounter Date: 07/05/20 Encounter Time: 16:00 Subjective: Patient seen and examined for peritonitis. Started on tube feeding. No new overnight events. - Objective Vital Signs & Weight: Vital Signs (12 hours) Temp Pulse Resp BP Pulse Ox 07/05/20 12:05 97.8 F 78 14 101/63 96 07/05/20 07:45 97.3 F L 80 12 107/51 L 97 Weight Admit Weight 152 lb 1.903 oz Weight 166 lb 12.8 oz Most Recent Monitor Data Heart Rate from ECG 83 NIBP 90/46 NIBP BP-Mean 60 Respiration from ECG 18 SpO2 100 I&O: 07/04/20 07/05/20 07/06/20 06:59 06:59 06:59 Intake Total 1770 930 930 Output Total 2250 890 1250 Balance -480 40 -320 Result Diagrams: 07/05/20 04:15 07/05/20 03:30 Additional Labs: Accuchecks 07/04/20 11:31 POC Glucose 99 Abnormal Lab Results - Last 48 hrs 07/04/20 03:40: BUN 25 H, Serum Total Protein 5.1 L, Albumin 2.2 L, Albumin/Globulin Ratio 0.8 L 07/04/20 03:40: WBC 12.1 H, RBC 3.05 L, Hgb 9.1 L, Hct 28.6 L, MCHC 31.6 L, Lymphocytes % (Manual) 16 L, Myelocytes % 2 H 07/05/20 03:30: Alkaline Phosphatase 111 H, Serum Total Protein 5.4 L, Albumin 2.2 L, Albumin/Globulin Ratio 0.7 L 07/05/20 04:15: WBC 14.3 H, RBC 3.19 L, Hgb 9.5 L, Hct 29.9 L, MCHC 31.8 L, Band Neuts % (Manual) 1 L Microbiology - Entire Visit 06/30/20 20:48 Venous blood - Right Hand Blood Culture - Final Streptococcus agalactiae Gp. B 06/30/20 22:03 Urine Straight Catheter Urine Culture - Final NO GROWTH AT 36 HOURS 06/30/20 20:48 Venous blood - Right Hand Blood Culture - Preliminary NO GROWTH AT 48 HOURS Hospitalist ROS - Review of Systems ROS unobtainable: due to mental status - Medication Medications: Active Medications Generic Name Dose Route Start Last Admin Trade Name Freq PRN Reason Stop Dose Admin Acetaminophen 1,000 mg 07/04/20 10:00 07/05/20 17:14 Acetaminophen 500 Mg Tab PO Not Given 0400,1000,1600,2200 LUCIANO Heparin Sodium (Porcine) 5,000 units 07/03/20 21:00 07/05/20 09:16 Heparin 5,000 Units/Ml Vial SC 5,000 units BID LUCIANO Administration Hypromellose 1 g 07/02/20 09:00 07/05/20 09:17 Genteal Tears Severe Dry Eye Gel 10 G EA EYE 1 each DAILY LUCIANO Administration Levetiracetam 750 mg/ Sodium 107.5 mls @ 215 mls/hr 07/01/20 09:00 07/05/20 09:28 Chloride IVPB 107.5 mls BID LUCIANO Administration Meropenem 1 gm/ Device 50 mls @ 100 mls/hr 07/01/20 10:00 07/05/20 09:16 IVPB 50 mls 1000,2200 LUCIANO Administration Dextrose/Water 1,000 mls @ 75 mls/hr 07/03/20 09:15 07/05/20 00:09 D5w IV 1,000 mls .[id number] LUCIANO Administration Morphine Sulfate 4 mg 07/04/20 15:07 07/05/20 04:25 Morphine 4 Mg/Ml Vial SLOW IVP 4 mg Q15MIN PRN Administration PAIN/SOB Pantoprazole Sodium 40 mg 07/01/20 09:00 07/05/20 09:16 Pantoprazole 40 Mg Vial IVP 40 mg DAILY LUCIANO Administration Scopolamine 3 mg 07/03/20 14:00 07/03/20 16:17 Scopolamine 1.5 Mg/72 Hour Patch TOP 3 mg Q3D LUCIANO Administration - Exam General Appearance: NAD Neck: supple, no JVD Heart: RRR, no gallops Respiratory: no wheezes, no ronchi Gastrointestinal: soft, no guarding, no rigidity Extremities: no cyanosis Neurological: no new deficit Hosp A/P - Plan DVT proph w/SCDs Severe sepsis/septic shock due to dislodged gastrostomy/peritonitis Acute hypoxic resp failure - on mech Vent Acute kidney injury Metabolic acidosislactic acidosis Type II myocardial infarction 1 of 2 blood culture positive for group B strep Recent COVID-19 infection/pneumonia Hyperkalemia/hyponatremia on admission Abnormal LFTsresolved SVT versus atrial fibrillation with rapid ventricular response in the emergency roomresolved Dementia History of seizure disorder Plan: Continue supportive care. Tube feeding initiated. Patient on 3 L O2 nasal cannula. Continue IV fluids. Continue meropenem. Continue heparin for DVT prophylaxis. Continue other medications as above. A.m. labs. 07/04 Patient will be extubated later today. Bandemia is resolved. Renal function normalized. Continue IV fluids. Continue Keppra. Patient is off pressor. Will discontinue vancomycin. Continue meropenem. Continue heparin for DVT prophylaxis. Continue GI prophylaxis. Continue other medications as above. Palate if care input appreciated. 07/03 Bandemia and renal function improving. Continue mechanical ventilation. We will continue IV fluids. Continue current antibiotics. Enteral nutrition supplementation will be initiated today per general surgery. Continue other medications as above. A.m. labs 07/02 Patient is off pressors. Continue vent support. Continue IV hydration. Continue IV PPI. A.m. labs. We will recheck lactic acid in a.m. Patient remains in sinus rhythm. Monitor vancomycin level. Continue other medications as above. Case discussed extensively with CARLTON in the conference room with palliative care. DNR verified.
[2020-07-05] MEDS ORDERED: Electrolyte Replacement Protocol 1 EACH FS SCH (18:30)
[2020-07-05] MEDS: Potassium Chloride 40 MEQ in Premix Bag 1 BAG IVPB SCH ×3 (19:41→20:57)
[2020-07-05] MEDS ORDERED: Magnesium 2 GM/50 ML 2 GM in Premix Bag 1 BAG IVPB SCH (20:00)
[2020-07-06] MEDS: Acetaminophen 500 MG TAB PO SCH ×4 (04:00→21:59)
[2020-07-06] MEDS: Dextrose 5% in Water 1,000 ML IV SCH ×2 (04:00→06:04)
--- NOTE | 2020-07-06 05:09 | PRG ---
DATE OF SERVICE: 07/05/2020 SUBJECTIVE: Christina Thurman is an 84-year-old female who was extubated yesterday. OBJECTIVE: VITAL SIGNS: Temperature 97.3, pulse 80, respiratory rate 12, sats are 97% on 3 L. She is breathing without any distress. Blood pressure 107/51. CHEST: Anterior rhonchi. CARDIAC: Normal S1 and S2. No gallops. ABDOMEN: No masses. LABORATORY DATA: White count 14,000. Creatinine is normal, BUN is normal. ASSESSMENT: Renal failure, resolved. Abdominal sepsis, . PLAN: Pulmonary thorpe, she can be transferred to a retirement, comfort care. Pulmonary/Critical Care is going to follow at a distance. Job ID: [id number]
[2020-07-06 08:04] LABS: ALT (SGPT) 21 U/L (8-55); AST (SGOT) 25 U/L (5-34); Albumin 2.1 g/dL (3.4-4.8); Alkaline Phosphatase 117 U/L (40-110); Anion Gap 10 mmol/L (10-20); BUN (Urea Nitrogen) 13 mg/dL (9.8-20.1); Bilirubin, Total 0.5 mg/dL (0.2-1.2); Calc. Creatinine Clearance 68 mL/min (70-130); Calcium 7.7 mg/dL (7.8-10.44); Carbon Dioxide 25 mmol/L (23-31); Chloride 103 mmol/L (98-107); Globulin 3.1 g/dL (2.4-3.5); Glucose 172 mg/dL (83-110); Phosphorus 1.5 mg/dL (2.3-4.7); Potassium 4.2 mmol/L (3.5-5.1); Protein, Total 5.2 g/dL (5.8-8.1); Sodium 134 mmol/L (136-145)
[2020-07-06] MEDS ORDERED: Magnesium 2 GM/50 ML 2 GM in Premix Bag 1 BAG IVPB SCH (08:15)
[2020-07-06] MEDS ORDERED: Potassium Phosphate 22 MMOL in Sodium Chloride 0.9% 250 ML 250 ML IVPB SCH (08:15)
[2020-07-06] MEDS: Heparin 5,000 UNITS/ML VIAL SC SCH ×2 (08:23→20:06)
[2020-07-06] MEDS: Pantoprazole 40 MG VIAL IVP SCH (08:24)
[2020-07-06] MEDS: GenTeal Tears Severe Dry Eye GEL 10 G EA EYE SCH (08:39)
[2020-07-06] MEDS: Dextrose 5 %-0.45 % NaCl 1,000 ML IV SCH (09:10)
[2020-07-06] MEDS: MEROPENEM 1 GM/50 ML 1 GM in Premix Bag 1 BAG IVPB SCH (09:55)
[2020-07-06 10:55] LABS: Hemoglobin 9.3 g/dL (12.0-16.0); Mean Corpuscular HGB CONC 31.1 g/dL (32.0-36.0); Mean Corpuscular Hemoglobin 28.9 pg (27.0-31.0); Mean Corpuscular Volume 93.1 fL (78.0-98.0); Mean Platelet Volume 8.5 fL (7.4-10.4); Platelet Count 256 thou/uL (130-400); RBC Distribution Width 13.6 % (11.5-14.5); Red Blood Cell (RBC) Count 3.22 mill/uL (4.20-5.40); White Blood Cell (WBC) Count 13.5 thou/uL (4.8-10.8)
[2020-07-06 10:57] LABS: Band 2 % (5-11); Eosinophils 6 % (0-10); Hypochromia SLIGHT = 6-15 cells (100X) (0-5/hpf); Lymphocytes 4 % (21-51); MDiff Complete? YES; Monocytes 1 % (0-10); Neutrophil 87 % (42-75); Platelet Morphology Comment Appears Adequate
--- NOTE | 2020-07-06 14:10 | PRG ---
DATE OF SERVICE: The patient was seen during morning rounds. SUBJECTIVE: Olman is an 84-year-old female, underwent ex lap, abdominal washout, failed PEG tube placement with peritonitis, septicemia. She is improving, extubated. Renal failure has resolved, in the oncology simeon. Family is discussing palliative care. No acute events overnight. No changes. No family at the bedside. Discussed with bedside RN. OBJECTIVE: VITAL SIGNS: Temperature is 98.9, blood pressure is 110/54, heart rate is 86, breathing 18 times per minute, 99% on 2 L oxygen nasal cannula. GENERAL: An 84-year-old, elderly female lying in bed. No distress. RESPIRATORY: Equal rise and fall. CARDIOVASCULAR: Strong pulses. ABDOMEN: She has a PEG tube in place. Midline incision noted. Dry dressing shows withdrawal some when I palpate. She does have a soft abdomen. No maria alejandra peritoneal signs at this time. Residuals were 20s. PELVIS: Stable. MUSCULOSKELETAL: She is thin. LABORATORY DATA: Today, white blood cells 13.5, platelets are 256, hemoglobin and hematocrit 9.3 and 29.9 respectively. Sodium is 134, potassium 4.2, chloride is 103, CO2 is 25, BUN of 13, creatinine 0.71, glucose is 172, phos is 1.5. ASSESSMENT AND PLAN: 1. Postop day #5 status post ex lap, abdominal washout, PEG tube site replacement, open gastrostomy tube. 2. Acute kidney injury, resolved. 3. Acute respiratory failure, resolving. 4. Septic shock, resolved. 5. Post COVID pneumonia, resolved. PLAN: 1. We will continue to follow along. 2. No need to check residuals. 3. She is having bowel movements at this time and tolerating tube feeds. 4. Disposition per the medicine team. 5. Electrolyte replacement per the medicine team. 6. No family available to update. Job ID: [id number]
--- NOTE | 2020-07-06 16:37 | PDOC.HOSPP ---
- Subjective Encounter Date: 07/06/20 Encounter Time: 10:30 Subjective: Patient seen and examined for sepsis/peritonitis. Tolerating tube feeds at low rate. No new overnight events. - Objective Vital Signs & Weight: Vital Signs (12 hours) Temp Pulse Resp BP Pulse Ox 07/06/20 08:00 98.9 F 86 18 110/54 L 99 Weight Admit Weight 152 lb 1.903 oz Weight 166 lb 12.8 oz Most Recent Monitor Data Heart Rate from ECG 83 NIBP 90/46 NIBP BP-Mean 60 Respiration from ECG 18 SpO2 100 I&O: 07/05/20 07/06/20 07/07/20 06:59 06:59 06:59 Intake Total 930 1890 60 Output Total 890 2750 Balance 40 -860 60 Result Diagrams: 07/06/20 06:36 07/06/20 06:36 Additional Labs: Abnormal Lab Results - Last 48 hrs 07/05/20 03:30: Alkaline Phosphatase 111 H, Serum Total Protein 5.4 L, Albumin 2.2 L, Albumin/Globulin Ratio 0.7 L 07/05/20 04:15: WBC 14.3 H, RBC 3.19 L, Hgb 9.5 L, Hct 29.9 L, MCHC 31.8 L, Band Neuts % (Manual) 1 L 07/06/20 06:36: Sodium 134 L, Calcium 7.7 L, Phosphorus 1.5 L, Alkaline Phosphatase 117 H, Serum Total Protein 5.2 L, Albumin 2.1 L, Albumin/Globulin Ratio 0.7 L 07/06/20 06:36: WBC 13.5 H, RBC 3.22 L, Hgb 9.3 L, Hct 29.9 L, MCHC 31.1 L, Neutrophils % (Manual) 87 H, Band Neuts % (Manual) 2 L, Lymphocytes % (Manual) 4 L Microbiology - Entire Visit 06/30/20 20:48 Venous blood - Right Hand Blood Culture - Final NO GROWTH IN 5 DAYS 06/30/20 20:48 Venous blood - Right Hand Blood Culture - Final Streptococcus agalactiae Gp. B 06/30/20 22:03 Urine Straight Catheter Urine Culture - Final NO GROWTH AT 36 HOURS Hospitalist ROS - Review of Systems ROS unobtainable: due to mental status - Medication Medications: Active Medications Generic Name Dose Route Start Last Admin Trade Name Freq PRN Reason Stop Dose Admin Acetaminophen 1,000 mg 07/04/20 10:00 07/06/20 15:49 Acetaminophen 500 Mg Tab PO Not Given 0400,1000,1600,2200 LUCIANO Heparin Sodium (Porcine) 5,000 units 07/03/20 21:00 07/06/20 08:23 Heparin 5,000 Units/Ml Vial SC 5,000 units BID LUCIANO Administration Hypromellose 1 g 07/02/20 09:00 07/06/20 08:39 Genteal Tears Severe Dry Eye Gel 10 G EA EYE 1 each DAILY LUCIANO Administration Levetiracetam 750 mg/ Sodium 107.5 mls @ 215 mls/hr 07/01/20 09:00 07/06/20 08:26 Chloride IVPB 107.5 mls BID LUCIANO Administration Meropenem 1 gm/ Device 50 mls @ 100 mls/hr 07/01/20 10:00 07/06/20 09:55 IVPB 50 mls 1000,2200 LUCIANO Administration Dextrose/Sodium Chloride 1,000 mls @ 50 mls/hr 07/06/20 08:15 07/06/20 09:10 D5 1/2 Ns IV 1,000 mls .Q20H LUCIANO Administration Pantoprazole Sodium 40 mg 07/01/20 09:00 07/06/20 08:24 Pantoprazole 40 Mg Vial IVP 40 mg DAILY LUCIANO Administration - Exam General Appearance: ill appearing Heart: RRR, no gallops Respiratory: no wheezes, rhonchi Gastrointestinal: soft, no guarding, no rigidity Extremities: no cyanosis Hosp A/P - Plan DVT proph w/SCDs Severe sepsis/septic shock due to dislodged gastrostomy/peritonitis Acute hypoxic resp failure - on mech Vent Acute kidney injury Metabolic acidosislactic acidosis Type II myocardial infarction 1 of 2 blood culture positive for group B strep Recent COVID-19 infection/pneumonia Hyperkalemia/hyponatremia on admission Abnormal LFTsresolved SVT versus atrial fibrillation with rapid ventricular response in the emergency roomresolved Dementia History of seizure disorder Plan: Replace phosphorus and magnesium. Continue to advance tube feeds as tolerated. Patient requiring 2 L O2 nasal cannula. Stable to transfer back to the [facility] once tolerating PEG tube feeding and cleared by general surgery. Will continue gentle hydration until for another day. Change IV antibiotics to PEG. Restart Depakote. Attempted to call family at [phone] with no answer. Continue other medications as above. 07/05 Continue supportive care. Tube feeding initiated. Patient on 3 L O2 nasal cannula. Continue IV fluids. Continue meropenem. Continue heparin for DVT prophylaxis. Continue other medications as above. A.m. labs. 07/04 Patient will be extubated later today. Bandemia is resolved. Renal function normalized. Continue IV fluids. Continue Keppra. Patient is off pressor. Will discontinue vancomycin. Continue meropenem. Continue heparin for DVT prophylaxis. Continue GI prophylaxis. Continue other medications as above. Palate if care input appreciated. 07/03 Bandemia and renal function improving. Continue mechanical ventilation. We will continue IV fluids. Continue current antibiotics. Enteral nutrition supplementation will be initiated today per general surgery. Continue other medications as above. A.m. labs 07/02 Patient is off pressors. Continue vent support. Continue IV hydration. Continue IV PPI. A.m. labs. We will recheck lactic acid in a.m. Patient remains in sinus rhythm. Monitor vancomycin level. Continue other medications as above. Case discussed extensively with CARLTON in the conference room with palliative care. DNR verified.
[2020-07-06] MEDS: Amoxicillin/Potassium Clav 600 mg/5 ml Oral Suspension PER TUBE SCH (20:06)
[2020-07-07] MEDS: Acetaminophen 500 MG TAB PO SCH ×4 (04:00→21:38)
[2020-07-07] MEDS: Pantoprazole 40 MG VIAL IVP SCH (09:42)
[2020-07-07] MEDS: Divalproex Sodium 125 mg Sprinkle Capsule PO SCH (09:42)
[2020-07-07] MEDS: Amoxicillin/Potassium Clav 600 mg/5 ml Oral Suspension PER TUBE SCH ×2 (09:42→21:39)
[2020-07-07] MEDS: Heparin 5,000 UNITS/ML VIAL SC SCH ×2 (09:43→21:39)
[2020-07-07] MEDS: GenTeal Tears Severe Dry Eye GEL 10 G EA EYE SCH (09:47)
[2020-07-07] MEDS: Dextrose 5 %-0.45 % NaCl 1,000 ML IV SCH (09:48)
--- NOTE | 2020-07-07 16:21 | PDOC.HOSPP ---
- Subjective Encounter Date: 07/07/20 Encounter Time: 10:45 non-verbal Subjective: Patient seen and examined for severe sepsis/peritonitis. No new overnight events. Tolerating tube feeds. - Objective Vital Signs & Weight: Vital Signs (12 hours) Temp Pulse Resp BP Pulse Ox 07/07/20 12:00 98.3 F 98 18 101/50 L 99 07/07/20 08:00 97 Weight Admit Weight 152 lb 1.903 oz Weight 166 lb 12.8 oz Most Recent Monitor Data Heart Rate from ECG 83 NIBP 90/46 NIBP BP-Mean 60 Respiration from ECG 18 SpO2 100 I&O: 07/06/20 07/07/20 07/08/20 06:59 06:59 06:59 Intake Total 1890 960 30 Output Total 2750 2200 Balance -860 -1240 30 Result Diagrams: 07/06/20 06:36 07/06/20 06:36 Additional Labs: Abnormal Lab Results - Last 48 hrs 07/06/20 06:36: Sodium 134 L, Calcium 7.7 L, Phosphorus 1.5 L, Alkaline Phosphatase 117 H, Serum Total Protein 5.2 L, Albumin 2.1 L, Albumin/Globulin Ratio 0.7 L 07/06/20 06:36: WBC 13.5 H, RBC 3.22 L, Hgb 9.3 L, Hct 29.9 L, MCHC 31.1 L, Neutrophils % (Manual) 87 H, Band Neuts % (Manual) 2 L, Lymphocytes % (Manual) 4 L Microbiology - Entire Visit 06/30/20 20:48 Venous blood - Right Hand Blood Culture - Final NO GROWTH IN 5 DAYS 06/30/20 20:48 Venous blood - Right Hand Blood Culture - Final Streptococcus agalactiae Gp. B 06/30/20 22:03 Urine Straight Catheter Urine Culture - Final NO GROWTH AT 36 HOURS Hospitalist ROS - Review of Systems Cardiovascular: denies: chest pain, palpitations, orthopnea, paroxysmal noc. dyspnea, edema, light headedness, other Gastrointestinal: denies: nausea, vomiting, abdominal pain, diarrhea, constipation, melena, hematochezia, other - Medication Medications: Active Medications Generic Name Dose Route Start Last Admin Trade Name Freq PRN Reason Stop Dose Admin Acetaminophen 1,000 mg 07/04/20 10:00 07/07/20 10:11 Acetaminophen 500 Mg Tab PO 1,000 mg 0400,1000,1600,2200 LUCIANO Administration Amoxicillin/Clavulanate Potassium 600 mg 07/06/20 21:00 07/07/20 09:42 Amoxicillin/Potassium Clav 600 Mg/5 Ml Oral Suspension PER TUBE 600 mg BID LUCIANO Administration Divalproex Sodium 125 mg 07/07/20 09:00 07/07/20 09:42 Divalproex Sodium 125 Mg Sprinkle Capsule PO 125 mg DAILY LUCIANO Administration Heparin Sodium (Porcine) 5,000 units 07/03/20 21:00 07/07/20 09:43 Heparin 5,000 Units/Ml Vial SC 5,000 units BID LUCIANO Administration Hypromellose 1 g 07/02/20 09:00 07/07/20 09:47 Genteal Tears Severe Dry Eye Gel 10 G EA EYE 1 each DAILY LUCIANO Administration Levetiracetam 750 mg/ Sodium 107.5 mls @ 215 mls/hr 07/01/20 09:00 07/07/20 09:43 Chloride IVPB 107.5 mls BID LUCIANO Administration Dextrose/Sodium Chloride 1,000 mls @ 50 mls/hr 07/06/20 08:15 07/07/20 09:48 D5 1/2 Ns IV 1,000 mls .Q20H LUCIANO Administration Pantoprazole Sodium 40 mg 07/01/20 09:00 07/07/20 09:42 Pantoprazole 40 Mg Vial IVP 40 mg DAILY LUCIANO Administration - Exam General Appearance: awake alert Neck: supple, no JVD Heart: RRR, no gallops Respiratory: no wheezes, rhonchi Gastrointestinal: soft, non-distended, no guarding, no rigidity Gastrointestinal - other findings: Wound VAC present Extremities: no cyanosis Neurological - other findings: Neuro/psychexam unchanged Hosp A/P - Plan DVT proph w/SCDs Severe sepsis/septic shock due to dislodged gastrostomy/peritonitis with group B strep bacteremia Acute hypoxic resp failure -s/p mech Ventextubated 07/04 Acute kidney injury Metabolic acidosislactic acidosis Type II myocardial infarction Recent COVID-19 infection/pneumonia Hyperkalemia/hyponatremia on admission Abnormal LFTsresolved SVT versus atrial fibrillation with rapid ventricular response in the emergency roomresolved Dementia History of seizure disorder Plan: Continue supportive care. Will increase tube feed to 30 mL/h. Consult dietitian for further dietary recommendation. DC IV fluids when tolerating tube feeds. Continue Augmentin. Start Depakote. Continue other medications as above. A.m. labs. Continue wound care 07/06 Replace phosphorus and magnesium. Continue to advance tube feeds as tolerated. Patient requiring 2 L O2 nasal cannula. Stable to transfer back to the [facility] once tolerating PEG tube feeding and cleared by general surgery. Will cont inue gentle hydration until for another day. Change IV antibiotics to PEG. Restart Depakote. Attempted to call family at [phone] with no answer. Continue other medications as above. 07/05 Continue supportive care. Tube feeding initiated. Patient on 3 L O2 nasal cannula. Continue IV fluids. Continue meropenem. Continue heparin for DVT prophylaxis. Continue other medications as above. A.m. labs. 07/04 Patient will be extubated later today. Bandemia is resolved. Renal function normalized. Continue IV fluids. Continue Keppra. Patient is off pressor. Will discontinue vancomycin. Continue meropenem. Continue heparin for DVT prophylaxis. Continue GI prophylaxis. Continue other medications as above. Palate if care input appreciated. 07/03 Bandemia and renal function improving. Continue mechanical ventilation. We will continue IV fluids. Continue current antibiotics. Enteral nutrition supplementation will be initiated today per general surgery. Continue other medications as above. A.m. labs 07/02 Patient is off pressors. Continue vent support. Continue IV hydration. Continue IV PPI. A.m. labs. We will recheck lactic acid in a.m. Patient remains in sinus rhythm. Monitor vancomycin level. Continue other medications as above. Case discussed extensively with CARLTON in the conference room with palliative care. DNR verified.
--- NOTE | 2020-07-07 16:24 | PRG ---
DATE OF SERVICE: 07/07/2020 SUBJECTIVE: The patient is more awake today. She is tolerating tube feeds. Had a bowel movement yesterday to the prior day. No abdominal pain. Hemodynamically stable. No changes. Plan is to go back to the nursing facility tomorrow. OBJECTIVE: VITAL SIGNS: Temperature is 98.3, blood pressure 101/50, heart rate is 98, breathing 18 times per minute, O2 saturations 99% on 1 L nasal cannula. GENERAL: A 84-year-old elderly, demented female, nontoxic. HEENT: Normocephalic. Trachea midline. RESPIRATORY: Equal rise and fall. No respiratory distress. CARDIOVASCULAR: Strong pulses. ABDOMEN: She has a G-tube in place. No discharge around the tube. Wound VAC is in place. Dry. No peritoneal signs. MUSCULOSKELETAL: Dry. NEUROLOGIC: Dementia, but she is alert spontaneously, is nonverbal, does not follow commands, but does withdraw from pain. LABORATORY DATA: No laboratory data to review today. ASSESSMENT: 1. Postop day #6, status post exploratory laparotomy, abdominal washout, PEG tube site replacement, open gastrostomy tube. 2. Acute kidney injury, resolved. 3. Acute respiratory failure, resolved. 4. Septic shock, resolved. 5. Post COVID pneumonia, resolved. 6. Dementia. PLAN: 1. Continue to follow along. 2. Tube feeds have been increased. 3. Repeat dietary consult tomorrow and see if she has failed nutrition. 4. I discussed with Internal Medicine, likely go back to the nursing facility tomorrow. 5. No further recommendations from us. She can follow up with Dr. Resendez in the [facility] for wound care. We will confirm with Dr. Ellison tomorrow prior to discharge. I appreciate Internal Medicine jewelry consultant recommendations. Job ID: [id number]
[2020-07-08] MEDS: Acetaminophen 500 MG TAB PO SCH ×3 (03:30→16:29)
[2020-07-08] MEDS: Dextrose 5 %-0.45 % NaCl 1,000 ML IV SCH (03:30)
[2020-07-08 05:35] LABS: Eosinophils 1 % (0-10); Hemoglobin 7.6 g/dL (12.0-16.0); Lymphocytes 13 % (21-51); MDiff Complete? YES; Mean Corpuscular HGB CONC 32.5 g/dL (32.0-36.0); Mean Corpuscular Hemoglobin 30.3 pg (27.0-31.0); Mean Corpuscular Volume 93.1 fL (78.0-98.0); Mean Platelet Volume 7.9 fL (7.4-10.4); Monocytes 3 % (0-10); Neutrophil 83 % (42-75); Platelet Count 369 thou/uL (130-400); Platelet Morphology Comment Appears Adequate; RBC Distribution Width 13.8 % (11.5-14.5); Red Blood Cell (RBC) Count 2.51 mill/uL (4.20-5.40); White Blood Cell (WBC) Count 9.6 thou/uL (4.8-10.8)
[2020-07-08 06:10] LABS: Anion Gap 8 mmol/L (10-20); BUN (Urea Nitrogen) 10 mg/dL (9.8-20.1); BUN/Creatinine Ratio 17.24; Calc. Creatinine Clearance 83 mL/min (70-130); Calcium 7.7 mg/dL (7.8-10.44); Carbon Dioxide 28 mmol/L (23-31); Chloride 109 mmol/L (98-107); Glucose 105 mg/dL (83-110); Sodium 141 mmol/L (136-145)
[2020-07-08 08:07] VITALS: BP 97/51; TEMP 98.7
[2020-07-08] MEDS: GenTeal Tears Severe Dry Eye GEL 10 G EA EYE SCH (08:34)
[2020-07-08] MEDS: PHOS-NAK 1 PKT PACK PO SCH ×2 (08:35→10:43)
[2020-07-08] MEDS: Divalproex Sodium 125 mg Sprinkle Capsule PO SCH (08:36)
[2020-07-08] MEDS: Pantoprazole 40 MG VIAL IVP SCH (08:36)
[2020-07-08] MEDS: Heparin 5,000 UNITS/ML VIAL SC SCH (08:37)
[2020-07-08] MEDS: Amoxicillin/Potassium Clav 600 mg/5 ml Oral Suspension PER TUBE SCH (08:41)
--- NOTE | 2020-07-08 14:32 | PDOC.DS.DS ---
Provider - Provider Date of Admission: 07/01/20 00:24 Date of Discharge: 07/08/20 Admitting Provider: Agustín Martines MD Primary Care Physician: OUT OF TOWN Course - Hospital Course Hospital Course: Patient is a 84-year-old female with recent hospitalization for COVID-19 p neumonia with respiratory failure and malnutrition requiring PEG tube presented to the hospital with a leakage around the PEG tube site. Patient had pulled her PEG tube which was placed back recently. Please refer to the history and physical dated 07/01 for further details. The patient was admitted to the intensive care unit with a diagnosis of severe sepsis/septic shock due to dislodged gastrostomy tube. She underwent exploratory laparotomy with partial gastrectomy, washout and drain placement with a new gastrostomy tube placement. She also required aggressive volume resuscitation for lactic acidosis of 5.8. She also required mechanical ventilation. She was seen by cms expert during the CCU stay. Later on pressors were weaned off. She was placed on vancomycin and meropenem with v ancomycin level monitoring. Blood culture 1 of 2 came back positive for group B streptococcus. She also had severe acute kidney injury with creatinine of 3.32 on admission that improved with IV hydration. Patient was extubated for comfort on 07/04 after discussion with the family. She was later transferred to the medical floor. Tube feeding has been started at a low rate. She is currently on 45 mL tube feeds per hour which will be gradually advanced. Renal function has resolved. She also had SVT in the emergency room that has resolved. She will be discharged back to the nursing facility. Final diagnosis: Severe sepsis/septic shock due to dislodged gastrostomy/peritonitis with group B strep bacteremia Acute hypoxic resp failure -s/p [facility] Ventextubated 07/04 Acute kidney injury Metabolic acidosislactic acidosis Type II myocardial infarction Recent COVID-19 infection/pneumonia Hyperkalemia/hyponatremia on admission Abnormal LFTsresolved SVT versus atrial fibrillation with rapid ventricular response in the emergency roomresolved Dementia History of seizure disorder Time coordinating the discharge of this patient was 36 minutes. Resuscitation Status: 07/02/20 20:16 Resuscitation Status Routine Resuscitation Status: DNAR: NO Resuscitation Discussed with: confirmed with DPOA - Labs Lab Results: 07/08/20 04:50 07/08/20 04:50 Abnormal Lab Results - Last 48 hrs 07/08/20 04:50: Chloride 109 H, Anion Gap 8 L, Creatinine 0.58 L, Calcium 7.7 L, Phosphorus 2.0 L, Albumin 2.0 L 07/08/20 04:50: RBC 2.51 L, Hgb 7.6 L, Hct 23.4 L, Neutrophils % (Manual) 83 H, Lymphocytes % (Manual) 13 L Microbiology - Entire Visit 06/30/20 20:48 Venous blood - Right Hand Blood Culture - Final NO GROWTH IN 5 DAYS 06/30/20 20:48 Venous blood - Right Hand Blood Culture - Final Streptococcus agalactiae Gp. B 06/30/20 22:03 Urine Straight Catheter Urine Culture - Final NO GROWTH AT 36 HOURS - Physical Exam Vitals: Vital Signs (12 hours) Temp Pulse Resp BP Pulse Ox 07/08/20 13:32 98 07/08/20 09:59 98 07/08/20 08:06 98.7 F 91 18 97/51 L 98 07/08/20 08:00 98 07/08/20 04:52 99 Weight Admit Weight 152 lb 1.903 oz Weight 166 lb 12.8 oz Most Recent Monitor Data Heart Rate from ECG 83 NIBP 90/46 NIBP BP-Mean 60 Respiration from ECG 18 SpO2 100 Physical Exam: The patient was seen and examined on the day of discharge. Plan - Discharge Medications Prescriptions: Amoxicillin/Potassium Clav [Augmentin ES Suspension] 600 mg PER TUBE BID #1 ml Saccharomyces boulardii [Florastor] 250 mg PO DAILY #30 cap Home Medications: Medication Instructions Recorded Confirmed Type Dextran 70/Hypromellose [Genteal 1 drop EA EYE DAILY 06/11/20 06/11/20 History Tears 0.1%-0.3% Drop] Divalproex Sodium [Depakote 125 mg PO DAILY 06/11/20 06/11/20 History Sprinkle] Sennosides [Senna] 8.6 mg PO BID 06/11/20 06/11/20 History Sertraline HCl [Zoloft] 25 mg PO DAILY 06/11/20 06/11/20 History diphenhydrAMINE [Benadryl] 50 mg PO Q6H PRN 06/11/20 06/11/20 History levETIRAcetam [Keppra] 750 mg PO BID 06/11/20 06/11/20 History Acetaminophen [Tylenol Extra 500 mg PO Q6HR PRN #0 06/26/20 06/11/20 Rx Strength] Ascorbic Acid [Vitamin C] 1,000 mg PO DAILY #30 tab 06/26/20 Rx Enoxaparin Sodium [Lovenox] 30 mg SC DAILY #30 syringe 06/26/20 Rx Zinc Sulfate 220 mg PO DAILY #30 cap 06/26/20 Rx Amoxicillin/Potassium Clav 600 mg PER TUBE BID #1 ml 07/08/20 Rx [Augmentin ES Suspension] Saccharomyces boulardii [Florastor] 250 mg PO DAILY #30 cap 07/08/20 Rx Allergies: No Known Drug Allergies Allergy (Verified 06/11/20 22:17) PER ER NOTES - Discharge Instructions Discharge Instructions:: -Abdominal nessa need to be removed 07/11/20 -Per nephew, if patient pulls PEG out, does not want put back in. Please communicate with son if patient pulls out prior to replacing. Notify your doctor if you experience any: -temperature greater than 100.4F -nausea/vomiting -shortness of breath or chest pain that is unrelieved with rest -inability to tolerate tube feeds -questions or concerns that you may have - Follow up Plan Referrals: [facility]OUT OF [Primary Care Provider] - 7 Days (Call after discharge to schedule follow-up appointment ) Kaz Resendez MD [Active] - 14 Days (Nursing to remove nessa on 07/11/20; Call after discharge to schedule follow-up appointment in 2 weeks ) Disposition: RESIDENTIAL/ASSISTED LIVING Quality - Care Measures CORE MEASURES:: N/A
== END 2020-07-08 17:38 | DRG 326 ==
LOC: ERS 19:36 → ERHOLD 07-01 00:24 → SURG A 07-01 04:47 → CCU 07-01 07:28 → PACU-TCU 07-02 12:51 → CCU 07-03 14:40 → ONC 07-04 19:14
PROVIDERS: ADMIT Student in an Organized Health Care Education/Training Program; ATTEND Internal Medicine
PROC: 3E033XZ Introduction of Vasopressor into Peripheral Vein, Percutaneous Approach (ICD-10-PCS; 2020-06-30)
PROC: 5A1945Z Respiratory Ventilation, 24-96 Consecutive Hours (ICD-10-PCS; principal; 2020-07-01)
PROC: 0DB60ZZ Excision of Stomach, Open Approach (ICD-10-PCS; 2020-07-01)
PROC: 0DH60UZ Insertion of Feeding Device into Stomach, Open Approach (ICD-10-PCS; 2020-07-01)
PROC: 06HY33Z Insertion of Infusion Device into Lower Vein, Percutaneous Approach (ICD-10-PCS; 2020-07-01)
DX: K94.23 Gastrostomy malfunction (principal); R65.21 Severe sepsis with septic shock; K65.9 Peritonitis, unspecified; J12.82 Pneumonia due to coronavirus disease 2019; U07.1 COVID-19; J96.01 Acute respiratory failure with hypoxia; I21.A1 Myocardial infarction type 2; A40.1 Sepsis due to streptococcus, group B; N17.9 Acute kidney failure, unspecified; E46 Unspecified protein-calorie malnutrition; E87.2 Acidosis; G93.49 Other encephalopathy; E87.1 Hypo-osmolality and hyponatremia; J90 Pleural effusion, not elsewhere classified; G30.9 Alzheimer's disease, unspecified; F02.80 Dementia in other diseases classified elsewhere, unspecified severity, without behavioral disturbance, psychotic disturbance, mood disturbance, and anxiety; G40.909 Epilepsy, unspecified, not intractable, without status epilepticus; F31.9 Bipolar disorder, unspecified; F20.9 Schizophrenia, unspecified; E87.5 Hyperkalemia; D64.9 Anemia, unspecified; Y83.9 Surgical procedure, unspecified as the cause of abnormal reaction of the patient, or of later complication, without mention of misadventure at the time of the procedure; I48.91 Unspecified atrial fibrillation; E83.52 Hypercalcemia; Z66 Do not resuscitate; N18.2 Chronic kidney disease, stage 2 (mild); R79.89 Other specified abnormal findings of blood chemistry; Z79.899 Other long term (current) drug therapy; Z68.28 Body mass index [BMI] 28.0-28.9, adult; R94.5 Abnormal results of liver function studies; E88.09 Other disorders of plasma-protein metabolism, not elsewhere classified; E87.8 Other disorders of electrolyte and fluid balance, not elsewhere classified
CPT/HCPCS: 36415; 36416; 36556; 51702; 71045; 74177; 80048; 80053; 80069; 80202; 81003; 81015; 82533; 82553; 82805; 83605; 83735; 84100; 84484; 85025; 87040; 87077; 87086; 87149; 87186; 93005; 94002; 94003; 96365; 96366; 96367; 96375; 96376; C9113; J0692; J1160; J1265; J1644; J1815; J1953; J2060; J2185; J2270; J2370; J2543; J2704; J2930; J3010; J3370; J3475; J3480; J3490; J7042; J7050; P9045; Q9967; U0002